=== PATIENT | female | born 1965 | race Caucasian/White ===

== ENCOUNTER 2016-07-01 11:54 | Inpatient (IN) | payer BC ==
[~2016-07-01] VITALS: Ht 160 cm; Wt 104.5 kg
[2016-07-01] MEDS ORDERED: SODIUM CHLORIDE 0.9% 1000ML 1,000 ML IV STA (12:36)
--- NOTE | 2016-07-01 12:44 | EMERGENCY ROOM VISIT NOTE ---
History Report prepared by Chuckibkatrin: Deana Dodge Under the Supervision of: Dr. Radha Cmapbell M.D. First contact with patient: 12:26 Chief Complaint: ILLNESS Stated Complaint: JOINT SWELLING/DISCOLORATION, RASH ON ANKLES History of Present Illness The patient is a 50 year old female who presents to the Emergency Room with complaints of joint pain in her bilateral wrists and left ankle since yesterday. She states that she feels like she has no strength or flexibility in her joints and has increased pain with movement. She states that her fingers are swollen and appear slightly blue in color compared to baseline. This morning , the patient noticed a rash that began on her feet and spread up both of her legs. The rash consists of small red dots. She has not noticed a rash anywhere else on her body. She does note that there is a scratch on her right alvarez that has not been healing. The scratch became increasingly red in the past 2 days. Currently, she has a headache. She typically will take aspirin for her headaches but does not use it regularly and has not taken it today. Upon arrival to the ED her temperature was 39.2. The patient had an appointment scheduled with her PCP today due to an ongoing upper respiratory infection but she called them about her symptoms and was referred to the ER. She does note that she had one episode of vomiting 2 days ago but denies any blood in her vomit. Denies bloody stool, abdominal pain, or other complaints. She is not on any prescription medications. Source of History: patient Onset: 2 days ago Position: wrist (bilateral), ankle (left) Timing: constant Modifying Factors (Worsening): movement Associated Symptoms: + fevers, + headache, + rash, + vomiting, No abdominal pain, No hematochezia Review of Systems See HPI for pertinent positives & negatives. A total of 10 systems reviewed and were otherwise negative. Past Medical & Surgical Medical Problems: (1) Sepsis Surgical Problems: (1) H/O wisdom tooth extraction Family History Cancer Heart disease Hypertension Lung disease Social History Smoking Status: Never Smoker Drug Use: none Housing Status: lives with family Occupation Status: employed Current/Historical Medications No Active Prescriptions or Reported Meds Allergies Coded Allergies: No Known Allergies (Unverified , 07/01/16) Physical Exam Vital Signs Date Time Temp Pulse Resp B/P Pulse Ox O2 Delivery O2 Flow Rate FiO2 07/01/16 14:02 108 18 184/86 96 Room Air 07/01/16 12:17 39.2 110 20 142/87 95 Room Air Physical Exam Vital signs reviewed. General: Well-appearing 50 year old female, in no significant distress. HEENT: No scleral icterus, PERRLA, neck supple. Atraumatic. Cardiovascular: Regular rate and rhythm, no extra sounds. Pulmonary: Clear to auscultation bilaterally, normal work of breathing. Abdomen: Soft, nontender, nondistended, positive bowel sounds. Musculoskeletal: Atraumatic, no peripheral edema. Neurologic: Patient awake alert and oriented x 3, full strength in all 4 extremities. Cranial nerves 2 through 12 grossly intact. Skin: Warm, dry, petechial rash to the medial ankles bilaterally, fading more proximally. She has a wound to the right anterior alvarez with 2 superficial abrasions and surrounding petechiae. Some mild swelling over the left wrist with tenderness to palpation, discomfort with range of motion of the wrists. Medical Decision & Procedures ER Provider Diagnostic Interpretation: X-ray results as stated below per interpretation by me and the radiologist: TWO VIEW CHEST CLINICAL HISTORY: Cough. FINDINGS: PA and lateral chest radiographs are obtained. No prior studies are available for comparison at the time of dictation. The examination is degraded by large body habitus. The heart is top normal for projection. The mediastinal contour is within normal limits. There is mild elevation right hemidiaphragm. The lungs and pleural spaces are clear. There is no pneumothorax. The bony thorax appears intact. IMPRESSION: No active disease in the chest. Electronically signed by: Vikash Madrid M.D. 07/01/2016 1:20 PM Dictated Date/Time: 07/01/2016 1:19 PM Laboratory Results Test 07/01/16 12:52 07/01/16 12:55 07/01/16 13:50 Influenza Type A Antigen Neg for Influ A (NEG) Influenza Type B Antigen Neg for Influ B (NEG) Erythrocyte Sedimentation Rate 36 mm/hr (0-21) Prothrombin Time 11.0 SECONDS (9.0-12.0) Prothromb Time International Ratio 1.0 (0.9-1.1) Activated Partial Thromboplast Time 28.0 SECONDS (21.0-31.0) Partial Thromboplastin Ratio 1.1 C-Reactive Protein 9.04 mg/dl (0-0.29) Urine Color DK YELLOW Urine Appearance CLEAR (CLEAR) Urine pH 5.0 (4.5-7.5) Urine Specific [place] 1.020 (1.000-1.030) Urine Protein 1+ (NEG) Urine Glucose (UA) NEG (NEG) Urine Ketones NEG (NEG) Urine Occult Blood TRACE (NEG) Urine Nitrite NEG (NEG) Urine Bilirubin NEG (NEG) Urine Urobilinogen NEG (NEG) Urine Leukocyte Esterase NEG (NEG) Urine WBC (Auto) 1-5 /hpf (0-5) Urine RBC (Auto) 5-10 /hpf (0-4) Urine Hyaline Casts (Auto) 5-10 /lpf (0-5) Urine Epithelial Cells (Auto) 20-30 /lpf (0-5) Urine Bacteria (Auto) NEG (NEG) Laboratory results per my review. Medications Administered Medications (Trade) Dose Ordered Sig/Ashley Route Start Time Stop Time Status Last Admin Dose Admin Sodium Chloride (Nss 1000ml) 1,000 ml @ 125 mls/hr Q8H STAT IV 07/01/16 12:36 07/01/16 19:39 DC 07/01/16 12:53 125 MLS/HR Acetaminophen 650 mg 650 mg NOW STAT PO 07/01/16 13:55 07/01/16 14:05 DC 07/01/16 14:22 650 MG Sodium Chloride (Nss 1000ml) 1,000 ml @ 75 mls/hr [id number] IV 07/01/16 14:39 07/03/16 03:01 DC 07/03/16 02:16 75 MLS/HR ECG Indication: other (fever) Rate (beats per minute): 115 Rhythm: sinus tachycardia Findings: PAC, no acute ischemic change, other (low voltage QRS, T wave flattening) ED Course 1228: The patient was evaluated in room C5. A complete history and physical examination was performed. 1236: Ordered NSS 1000 ml @ 125 mls/hr IV. 1355: Ordered Acetaminophen 650 mg PO. 1409: I discussed the case with Alesia Ordonez PA-C and Dr. Sandoval - [facility]. The patient will be evaluated for further management. 1419: Upon reevaluation, the patient is resting comfortably. I discussed laboratory and radiographic results with the patient. She verbalized agreement of the treatment plan. Medical Decision Fever: Influenza, other viral illness, pneumonia, urinary tract infection, metabolic abnormality, medication effect, cellulitis, meningitis, intra-abdominal source, blood dyscrasia, Lyme disease. This patient was evaluated and appeared to be in no significant distress. IV access was obtained and laboratory work was drawn. The patient was placed cardiac rehabilitation specialist revealed a sinus rhythm. Laboratory work revealed elevated sedimentation and CRP. Blood cultures are pending. Lyme titer is pending. Due to the fever, arthralgias and elevated inflammatory markers, the patient will be evaluated by the hospitalist service for further management. I did discuss the case with Dr. Sandoval. Patient and family are aware of the plan and agree. Consults Time Called: 1400 Consulting Physician: Alesia Ordonez PA-C and Dr. Sandoval - [facility] Returned Call: 1409 I discussed the case with them. The patient will be evaluated for further management. Impression Primary Impression: Arthralgia Additional Impressions: Febrile illness Petechial rash Scribe Attestation The scribe's documentation has been prepared under my direction and personally reviewed by me in its entirety. I confirm that the note above accurately reflects all work, treatment, procedures, and medical decision making performed by me. Departure Information Dispostion Being Evaluated By Hospitalist Prescriptions No Active Prescriptions or Reported Meds Referrals No Doctor, Assigned (PCP) Patient Instructions My [facility] Problem Qualifiers Primary Impression: Arthralgia Joint pain location: wrist Laterality: bilateral Qualified Codes: M25.531 - Pain in right wrist; M25.532 - Pain in left wrist
[2016-07-01 13:00] LABS: BASO % 0.2 %; BASO ABS # 0.01 K/uL (0-0.2); COMPLETE YES; EOS % 0.4 %; HEMATOCRIT 36.6 % (37-47); LYMPH % 17.3 %; LYMPH ABS # 0.88 K/uL (1.2-3.4); MEAN CELL VOLUME 85.5 fL (80-100); MEAN CORPUSCULAR HGB CONC 32.8 g/dl (32-36); MEAN PLATELET VOLUME 10.5 fL (7.4-10.4); MONO % 13.6 %; NEUT % 68.5 %; PLATELET COUNT 144 K/uL (130-400); RED BLOOD COUNT 4.28 M/uL (4.2-5.4); WHITE BLOOD COUNT 5.08 K/uL (4.8-10.8)
[2016-07-01 13:12] LABS: PARTIAL THROMBOPLASTIN RATIO 1.1
[2016-07-01 13:21] LABS: BUN/CREATININE RATIO 12.7 (10-20); CALCIUM 8.9 mg/dl (8.5-10.1); CREATININE 0.82 mg/dl (0.60-1.20); MAGNESIUM 2.2 mg/dl (1.8-2.4); POTASSIUM 3.6 mmol/L (3.5-5.1)
--- NOTE | 2016-07-01 13:21 | DIAGNOSTIC IMAGING REPORT ---
TWO VIEW CHEST CLINICAL HISTORY: Cough. FINDINGS: PA and lateral chest radiographs are obtained. No prior studies are available for comparison at the time of dictation. The examination is degraded by large body habitus. The heart is top normal for projection. The mediastinal contour is within normal limits. There is mild elevation right hemidiaphragm. The lungs and pleural spaces are clear. There is no pneumothorax. The bony thorax appears intact. IMPRESSION: No active disease in the chest. Electronically signed by: Vikash Madrid M.D. 07/01/2016 1:20 PM Dictated Date/Time: 07/01/2016 1:19 PM
[2016-07-01] MEDS ORDERED: ACETAMINOPHEN 325 MG TAB PO STA (13:55)
[2016-07-01 14:23] LABS: URINE APPEARANCE CLEAR (CLEAR); URINE BILIRUBIN NEG (NEG); URINE COLOR DK YELLOW; URINE EPITHELIAL CELL AUTO 20-30 /lpf (0-5); URINE NITRITE NEG (NEG); UROBILINOGEN NEG (NEG); ZZUR CULT IF INDIC CLEAN CATCH NO
[2016-07-01 14:34] LABS: MANUAL MICROSCOPIC REQUIRED? NO; REVIEW REQ? NO
[2016-07-01] MEDS ORDERED: ALUMINUM/MAGNESIUM/SIMETH (MAALOX MAX) 30 ML UDC PO PRN (14:45)
[2016-07-01] MEDS ORDERED: ONDANSETRON INJ 2 MG/ML 2 ML VIAL IV PRN (14:45)
--- NOTE | 2016-07-01 15:59 | DIAGNOSTIC IMAGING REPORT ---
RIGHT WRIST MIN 3 VIEWS ROUTINE CLINICAL HISTORY: Bilateral wrist pain and swelling. COMPARISON: None FINDINGS: Alignment of the right wrist is anatomic. There is no acute fracture or suspicious lesion. No erosions are identified. There is mild osteophytosis within several articulations. IMPRESSION: 1. No acute fracture or dislocation of the right wrist. 2. 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 Electronically signed by: Reinier Zelaya M.D. 07/01/2016 3:58 PM Dictated Date/Time: 07/01/2016 3:56 PM
--- NOTE | 2016-07-01 15:59 | DIAGNOSTIC IMAGING REPORT ---
LEFT WRIST 5 VIEWS CLINICAL HISTORY: Left wrist pain. FINDINGS: 5 views of the left wrist are obtained. No prior studies are available for comparison at the time of dictation. The skeletal structures are well mineralized. No fracture is seen. The joint spaces of the wrist are well-maintained. The overlying soft tissues are within normal limits. IMPRESSION: Unremarkable radiographic assessment of the left wrist. Electronically signed by: Vikash Madrid M.D. 07/01/2016 3:58 PM Dictated Date/Time: 07/01/2016 3:56 PM
[2016-07-01 16:50] LABS: LYME DISEASE AB IGG NEG (NEG); LYME DISEASE AB IGM NEG (NEG)
[2016-07-01 19:26] VITALS: BP 128/81; PULSE 98; TEMP 36.8; O2SAT 95; Ht 160 cm; Wt 104.5 kg
[2016-07-01] MEDS: SODIUM CHLORIDE 0.9% 1000ML 1,000 ML IV SCH (20:03)
[2016-07-01] MEDS: CEFTRIAXONE SOD INJ 2,000 MG in DEXTROSE 5% 50ML 50 ML IV SCH (20:32)
[2016-07-01] MEDS: DOXYCYCLINE HYCLATE 100 MG CAP PO SCH (20:32)
--- NOTE | 2016-07-01 22:46 | HISTORY & PHYSICAL EXAMINATION ---
DATE OF ADMISSION: 07/01/2016 CHIEF COMPLAINT: Rash in the legs and fever, upper respiratory infection. HISTORY OF PRESENT ILLNESS: This 50-year-old female with no significant past medical history presents with ongoing sinus symptoms since last 1 month and dry cough is not getting better. She is taking [id number] sinus medications but last Thursday she was nauseous , but today nausea has resolved.But today she was feeling chills and fever and some headaches and also she developed a rash in her both ankles and was also having bilateral wrist pain on movement and right ankle pain, so she came to the ER. In the ER, she has a temp spike of 39.2. Has tachycardia. Blood pressure is stable. The patient denies any chest pain, nausea, vomiting at this time. No shortness of breath. No abdominal pain, nausea has resolved and no vomiting, no diarrhea. No swelling in the legs.Resting comfortably. Denies any tick bites. ALLERGIES: No known drug allergies. PAST MEDICAL HISTORY: As mentioned above. PAST SURGICAL HISTORY: Dental surgery and bunion correction of both her feet. MEDICATIONS: Multivitamin. FAMILY HISTORY: Significant for mother has asthma, hypertension and COPD. Father had hypertension. Maternal grandfather had prostate cancer. Maternal grandmother developed colon cancer. Paternal grandfather of [place] at age of 66. REVIEW OF SYMPTOMS: As per HPI. PHYSICAL EXAMINATION: GENERAL: The patient is of moderate build, not in distress. VITAL SIGNS: Temperature 37.2, pulse 108, respiratory rate 18, blood pressure 180/86, oxygen 96% room air. HEAD, EYES, EARS, NOSE, AND THROAT: No pallor, no icterus. Pupils equal, round, and reactive to light. NECK: No JVD, no neck masses, no carotid bruits. CARDIOVASCULAR: S1, S2 heard, regular rate and rhythm, no murmur, no gallop. RESPIRATORY SYSTEM: Clear to auscultation bilaterally. No wheezing, no crackles. ABDOMEN: Soft, bowel sounds present. Nontender. No distention. CENTRAL NERVOUS SYSTEM: Cranial nerves II-XII grossly intact. Nonfocal. EXTREMITIES: Bilateral wrists were slightly swollen and tender to palpation and movement. Skin has macular rash seen on both lower extremities from ankle to the skin. LABORATORY DATA: WBC 5.8, hemoglobin 12, hematocrit 36.6, platelets 144. Sodium 138, potassium 3.6, chloride 102, bicarbonate 25, BUN 10, creatinine 0.8, serum glucose 138, calcium 8.9, magnesium 2.2, total bilirubin 0.4, direct bilirubin 0.2, AST 63, ALT 114, alkaline phosphatase 137. C-reactive protein 9.04. ESR 36. PT 11, INR 1, PTT 28. Urinalysis positive for trace occult blood. Chest x-ray no acute disease in the chest. EKG: Sinus tachycardia with PACs elevated 115. Nonspecific T-wave abnormality, no acute ST changes seen. ASSESSMENT AND PLAN: This is a 50-year-old female who presents with fever, tachycardia and rash in the lower extremities with ongoing sinus infection for about a month. Possible early sepsis. The patient notes fevers spike, tachycardia and rash seen in the lower extremities. He has a little scratch on her right alvarez which is not healing and we will treat her with IV Rocephin to cover for any strep infection. The patient also has some joint pain. ESR is mildly elevated. We will follow the labs done in ER for rheumatological workup. Also follow lyme titers. Follow the cultures. Monitor on tele floor. We will follow the lactic acid level. Wrist joint pain, Mildly tender to palpation. Will follow with chest x-ray. Plan as above. Deep venous thrombosis prophylaxis. SCDs for now. Disposition: Admit to tele floor. LEVEL 1 FULL CODE. Expect to discharge home and follow with her family doctor. MELECIO
[2016-07-01 23:48] VITALS: BP 168/81; PULSE 115; TEMP 36.7; O2SAT 95
[2016-07-02] MEDS: ACETAMINOPHEN 325 MG TAB PO PRN ×3 (03:25→23:39)
[2016-07-02 03:58] VITALS: BP 119/78; PULSE 113; TEMP 36.8; O2SAT 94
[2016-07-02] MEDS: SODIUM CHLORIDE 0.9% 1000ML 1,000 ML IV SCH ×2 (04:32→13:16)
[2016-07-02 06:21] LABS: BASO % 0.2 %; BASO ABS # 0.01 K/uL (0-0.2); COMPLETE YES; EOS % 0.9 %; HEMATOCRIT 33.9 % (37-47); LYMPH % 21.7 %; MEAN CELL VOLUME 85.6 fL (80-100); MEAN CORPUSCULAR HEMOGLOBIN 27.8 pg (25-34); MEAN CORPUSCULAR HGB CONC 32.4 g/dl (32-36); MEAN PLATELET VOLUME 10.9 fL (7.4-10.4); MONO % 11.7 %; NEUT % 65.5 %; PLATELET COUNT 144 K/uL (130-400); RED BLOOD COUNT 3.96 M/uL (4.2-5.4); WHITE BLOOD COUNT 4.61 K/uL (4.8-10.8)
[2016-07-02 07:10] LABS: BUN/CREATININE RATIO 16.6 (10-20); CALCIUM 8.2 mg/dl (8.5-10.1); CREATININE 0.71 mg/dl (0.60-1.20); MAGNESIUM 2.1 mg/dl (1.8-2.4); POTASSIUM 3.5 mmol/L (3.5-5.1)
[2016-07-02 07:45] VITALS: BP 140/69; PULSE 108; TEMP 36.9; O2SAT 97
[2016-07-02] MEDS: DOXYCYCLINE HYCLATE 100 MG CAP PO SCH ×2 (07:51→20:30)
[2016-07-02 11:27] VITALS: BP 138/73; PULSE 109; TEMP 36.9; O2SAT 94
[2016-07-02 16:13] VITALS: BP 143/71; TEMP 37.2; O2SAT 95
--- NOTE | 2016-07-02 17:29 | Progress Note ---
Subjective Date of Service: Jul 02, 2016. Subjective Pt evaluation today including: conversation w/ patient, physical exam, lab review, review of studies, review of inpatient medication list Saw/examined the patient in room 283 She states that she presented due to multiple joint pain - bilateral ankles/ wrists She also developed some rash on the ankles She continues to have a cough, mild fever, weakness, tachycardia Problem List Medical Problems: (1) Arthralgia Status: Acute (2) Febrile illness Status: Acute (3) Petechial rash Status: Acute Review of Systems Constitutional: + fatigue, + fever, + weakness, No chills Respiratory: + cough, No dyspnea at rest, No dyspnea on exertion, No hemoptysis , No shortness of breath, No sputum, No wheezing Cardiac: No chest pain, No edema, No palpitations Abdomen: No constipation, No diarrhea, No nausea, No pain, No vomiting Musculoskeletal: + joint pain (multiple joints, bilateral wrists/ankles), No calf pain, No muscle pain, No swelling Female : No dysuria, No urinary frequency Heme: No abnormal bleeding/bruising Skin: + new/changing skin lesions, + rash, No itch Medications Current Inpatient Medications Medications (Trade) Dose Ordered Sig/Ashley Route Start Time Stop Time Status Last Admin Dose Admin Sodium Chloride (Nss 1000ml) 1,000 ml @ 125 mls/hr Q8H IV 07/01/16 14:39 07/31/16 14:38 07/02/16 13:16 125 MLS/HR Acetaminophen (Tylenol Tab) 650 mg Q4H PRN PO 07/01/16 14:45 07/31/16 14:44 07/02/16 13:11 650 MG Al Hydrox/Mg Hydrox/Simethicone (Maalox Max Susp) 15 ml Q4H PRN PO 07/01/16 14:45 07/31/16 14:44 Ondansetron HCl 4 mg 4 mg Q6H PRN IV 07/01/16 14:45 07/31/16 14:44 Ceftriaxone Sodium/Dextrose (Rocephin Inj/D5 50ml) 70 ml @ 100 mls/hr Q24H IV 07/01/16 20:00 07/11/16 19:59 07/01/16 20:32 100 MLS/HR Doxycycline Hyclate (Vibramycin Cap) 100 mg BID PO 07/01/16 21:00 07/11/16 20:59 07/02/16 07:51 100 MG Objective Vital Signs Date Time Temp Pulse Resp B/P Pulse Ox O2 Delivery O2 Flow Rate FiO2 07/02/16 16:15 Room Air 07/02/16 16:13 37.2 143/71 95 Room Air 07/02/16 12:00 Room Air 07/02/16 11:27 36.9 109 16 138/73 94 Room Air 07/02/16 08:30 Room Air 07/02/16 07:45 36.9 108 20 140/69 97 Room Air 07/02/16 04:00 Room Air 07/02/16 03:58 36.8 113 18 119/78 94 Room Air 07/02/16 00:00 Room Air 07/01/16 23:48 36.7 115 20 168/81 95 Room Air 07/01/16 20:00 Room Air 07/01/16 19:26 36.8 98 18 128/81 95 Room Air 07/01/16 19:05 101 18 143/88 96 07/01/16 18:44 101 18 143/88 96 Physical Exam General Appearance: no apparent distress Eyes: normal inspection ENT: hearing grossly normal Respiratory/Chest: chest non-tender, lungs clear, normal breath sounds, no respiratory distress, no accessory muscle use Cardiovascular: regular rate, rhythm, no edema, no gallop, no JVD, no murmur Abdomen: normal bowel sounds, non tender, soft, no organomegaly, no pulsatile mass Extremities: normal range of motion, no pedal edema, no calf tenderness, + pertinent finding (mild swelling of bilateral wrists) 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, no motor/sensory deficits, alert, normal mood/affect, oriented x 3 Skin: + pertinent finding (petechial rash on the bilateral ankles) Lymphatic: no adenopathy Laboratory Results Last 24 Hours Test 07/02/16 05:55 White Blood Count 4.61 K/uL Red Blood Count 3.96 M/uL Hemoglobin 11.0 g/dL Hematocrit 33.9 % Mean Corpuscular Volume 85.6 fL Mean Corpuscular Hemoglobin 27.8 pg Mean Corpuscular Hemoglobin Concent 32.4 g/dl Platelet Count 144 K/uL Mean Platelet Volume 10.9 fL Neutrophils (%) (Auto) 65.5 % Lymphocytes (%) (Auto) 21.7 % Monocytes (%) (Auto) 11.7 % Eosinophils (%) (Auto) 0.9 % Basophils (%) (Auto) 0.2 % Neutrophils # (Auto) 3.02 K/uL Lymphocytes # (Auto) 1.00 K/uL Monocytes # (Auto) 0.54 K/uL Eosinophils # (Auto) 0.04 K/uL Basophils # (Auto) 0.01 K/uL RDW Standard Deviation 42.6 fL RDW Coefficient of Variation 13.5 % Immature Granulocyte % (Auto) 0.0 % Immature Granulocyte # (Auto) 0.00 K/uL Sodium Level 142 mmol/L Potassium Level 3.5 mmol/L Chloride Level 106 mmol/L Carbon Dioxide Level 26 mmol/L Anion Gap 10.0 mmol/L Blood Urea Nitrogen 12 mg/dl Creatinine 0.71 mg/dl Est Creatinine Clear Calc Drug Dose 109.3 ml/min Estimated GFR () 115.1 Estimated GFR (Non- 99.3 BUN/Creatinine Ratio 16.6 Random Glucose 102 mg/dl Calcium Level 8.2 mg/dl Magnesium Level 2.1 mg/dl Assessment and Plan This is a 50 year old female who presented to the ER with sinus problems, rash, and multiple joint pain Multiple Joint Pain some swelling noted on bilateral wrists wrist radiographs negative +fever, tachycardia, rash noted on bilateral ankles Lyme titers negative, rheumatoid factor negative ESR mild elevation, CRP mild elevation will consult rheumatology for further input Right Alvarez Laceration patient states she developed a cut after scratching her alvarez was well healing until one day prior to arrival when it changed to a darker color for now, patient is on Rocephin, though does not seem infected Upper Respiratory Infection +sinus pressure, +dry cough +fever, +tachycardia this seems more of a viral infection patient is on Rocephin for above will decrease IVFs as she is tolerating PO intake DVT ppx SCDs FULL CODE
[2016-07-02] MEDS: CEFTRIAXONE SOD INJ 2,000 MG in DEXTROSE 5% 50ML 50 ML IV SCH (19:44)
[2016-07-02 19:49] VITALS: BP 139/80; PULSE 117; TEMP 37.2; O2SAT 98
[2016-07-03] VITALS (12 sets, daily range): BP systolic 109–151; BP diastolic 58–87; PULSE 87–112; TEMP 36.8–38.2; O2SAT 94–96
[2016-07-03] MEDS ORDERED: POTASSIUM CHLORIDE 10 MEQ TABCR PO STA (01:40)
--- NOTE | 2016-07-03 01:49 | Progress Note ---
Internal Med Progress Note Date of Service: Jul 03, 2016. Provider Documentation: Atenolol initiated to suppress PVCs and probable chronic HTN (borderline cardiac size on CXR). Will relay to AM provider. Vital Signs: Date Time Temp Pulse Resp B/P Pulse Ox O2 Delivery O2 Flow Rate FiO2 07/03/16 07:40 37.5 87 16 109/58 96 Room Air 07/03/16 05:04 37.1 95 18 137/81 95 Room Air 07/03/16 04:00 Room Air 07/03/16 02:15 37.4 94 130/77 07/03/16 00:47 37.6 07/03/16 00:14 38.2 112 20 151/80 94 Room Air 07/03/16 00:00 Room Air 07/02/16 20:00 Room Air 07/02/16 19:49 37.2 117 18 139/80 98 Room Air 07/02/16 16:15 Room Air 07/02/16 16:13 37.2 143/71 95 Room Air 07/02/16 12:00 Room Air 07/02/16 11:27 36.9 109 16 138/73 94 Room Air 07/02/16 08:30 Room Air Lab Results: Results Past 24 Hours Test 07/03/16 02:00 Range/Units White Blood Count 5.98 4.8-10.8 K/uL Red Blood Count 3.91 4.2-5.4 M/uL Hemoglobin 10.9 12.0-16.0 g/dL Hematocrit 32.7 37-47 % Mean Corpuscular Volume 83.6 80-100 fL Mean Corpuscular Hemoglobin 27.9 25-34 pg Mean Corpuscular Hemoglobin Concent 33.3 32-36 g/dl Platelet Count 174 130-400 K/uL Mean Platelet Volume 10.7 7.4-10.4 fL Neutrophils (%) (Auto) 67.0 % Lymphocytes (%) (Auto) 20.6 % Monocytes (%) (Auto) 10.7 % Eosinophils (%) (Auto) 1.3 % Basophils (%) (Auto) 0.2 % Neutrophils # (Auto) 4.01 1.4-6.5 K/uL Lymphocytes # (Auto) 1.23 1.2-3.4 K/uL Monocytes # (Auto) 0.64 0.11-0.59 K/uL Eosinophils # (Auto) 0.08 0-0.5 K/uL Basophils # (Auto) 0.01 0-0.2 K/uL RDW Standard Deviation 41.8 36.4-46.3 fL RDW Coefficient of Variation 13.6 11.5-14.5 % Immature Granulocyte % (Auto) 0.2 % Immature Granulocyte # (Auto) 0.01 0.00-0.02 K/uL Sodium Level 143 136-145 mmol/L Potassium Level 3.7 3.5-5.1 mmol/L Chloride Level 108 98-107 mmol/L Carbon Dioxide Level 24 21-32 mmol/L Anion Gap 11.0 3-11 mmol/L Blood Urea Nitrogen 10 7-18 mg/dl Creatinine 0.79 0.60-1.20 mg/dl Est Creatinine Clear Calc Drug Dose 98.2 ml/min Estimated GFR () 101.2 Estimated GFR (Non- 87.3 BUN/Creatinine Ratio 12.1 10-20 Random Glucose 106 70-99 mg/dl Lactic Acid Level 0.8 0.4-2.0 mmol/L Calcium Level 7.9 8.5-10.1 mg/dl Magnesium Level 2.0 1.8-2.4 mg/dl Total Bilirubin 0.2 0.2-1 mg/dl Aspartate Amino Transf (AST/SGOT) 144 15-37 U/L Alanine Aminotransferase (ALT/SGPT) 182 12-78 U/L Alkaline Phosphatase 197 45-117 U/L Total Protein 6.6 6.4-8.2 gm/dl Albumin 2.8 3.4-5.0 gm/dl Globulin 3.8 2.5-4.0 gm/dl Albumin/Globulin Ratio 0.7 0.9-2 Lipase 415 73-393 U/L Thyroid Stimulating Hormone (TSH) 4.900 0.300-4.500 uIu/ml Free Thyroxine 1.25 0.80-1.60 ng/dl
[2016-07-03] MEDS: SODIUM CHLORIDE 0.9% 1000ML 1,000 ML IV SCH (02:16)
[2016-07-03 02:30] LABS: BASO % 0.2 %; BASO ABS # 0.01 K/uL (0-0.2); COMPLETE YES; EOS % 1.3 %; HEMATOCRIT 32.7 % (37-47); IG% 0.2 %; LYMPH % 20.6 %; LYMPH ABS # 1.23 K/uL (1.2-3.4); MEAN CELL VOLUME 83.6 fL (80-100); MEAN CORPUSCULAR HEMOGLOBIN 27.9 pg (25-34); MEAN CORPUSCULAR HGB CONC 33.3 g/dl (32-36); MEAN PLATELET VOLUME 10.7 fL (7.4-10.4); MONO % 10.7 %; PLATELET COUNT 174 K/uL (130-400); RED BLOOD COUNT 3.91 M/uL (4.2-5.4); WHITE BLOOD COUNT 5.98 K/uL (4.8-10.8)
[2016-07-03 02:43] LABS: BUN/CREATININE RATIO 12.1 (10-20); CALCIUM 7.9 mg/dl (8.5-10.1); CREATININE 0.79 mg/dl (0.60-1.20); POTASSIUM 3.7 mmol/L (3.5-5.1)
[2016-07-03 02:54] LABS: ALB/GLOB RATIO 0.7 (0.9-2); THYROID STIMULATING HORMONE 4.9 uIu/ml (0.300-4.500)
[2016-07-03] MEDS ORDERED: SODIUM CHLOR 0.45% + 20MEQ KCL 1,000 ML IV SCH (03:00)
[2016-07-03] MEDS ORDERED: LACTATED RINGER'S 1000ML 1,000 ML IV SCH (03:00)
[2016-07-03] MEDS ORDERED: LACTATED RINGER'S 1000ML 1,000 ML IV ONE (06:15)
--- NOTE | 2016-07-03 07:49 | DIAGNOSTIC IMAGING REPORT ---
ABDOMINAL ULTRASOUND, RIGHT UPPER QUADRANT HISTORY: Generalized abdominal pain. Abnormal LFTs.. COMPARISON: None. FINDINGS: Pancreas: The pancreatic tail is obscured by overlying bowel gas. The remaining portions of the pancreas are within normal limits. Liver: The liver is echogenic consistent with fatty change. The liver is enlarged measuring 27 reason length. Hypoechoic area near the middle hepatic vein favors focal fatty sparing. This measures 1.6 cm. Gallbladder: No gallbladder wall thickening. No gallstones. There are few small polyps with the largest measuring 4 mm. Incidental adenomyomatosis of the gallbladder fundus. CBD: 4.6 mm. Right kidney: Mild fullness of the right renal collecting system without gómez hydronephrosis. IMPRESSION: 1. Hepatomegaly demonstrating fatty change. A 2 cm hypoechoic area within the liver favors focal fatty sparing. A hypoechoic lesion could also have a similar appearance. Follow-up nonemergent liver MRI can be used for further evaluation. 2. Subcentimeter gallbladder polyps. No gallstones. No gallbladder wall thickening. 3. Mild fullness within the right renal system without gómez hydronephrosis. Electronically signed by: Maurisio Mitchell M.D. 07/03/2016 7:47 AM Dictated Date/Time: 07/03/2016 7:43 AM
[2016-07-03] MEDS: DOXYCYCLINE HYCLATE 100 MG CAP PO SCH ×2 (09:01→20:52)
--- NOTE | 2016-07-03 11:03 | Medical Consult ---
Consultation Date of Consultation: Jul 03, 2016. Attending Physician: Dr. Tomi Goldberg (infectious diseases) History of Present Illness Pt is a 50F that was sent to the ER Thursday morning by her PCP after she called in and said she noticed a rash on her ankles bilaterally. Patient was scheduled to see her PCP for sinus congestion (runny nose, feeling of fullness, cough) that had been going on for one month. Patient also reports occasional fevers during this period. On Thursday the patient woke up and noticed a rash on her feet bilaterally. Patient had scratched her medial ankle two weeks ago because she said her legs were dry - noticed some purple didcoloration around the scratch mariah last Thursday (4 days prior to admission). Pt has two dogs and takes them for walks every day. Pt denies any tick bites, any recent travel to outside the [facility], any exposure to horses. 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 Patient has a lifetime of chronic sinus symptoms. Patient does not have any auto immune disorders. FMHx: Father with auto immune hepatitis diagnosed at age 45. PMHx: s/p blood transfusion at age 1 (1966) for anemia, chronic anemia. Colonoscopy last year was normal. PSHx: Bilateral bunion correction, tonsillectomy, surgery on right foot for correction of ?crossed toes. Allergies: NKDA Meds: Pt takes occasional Advil or Alleve for headaches and environmental allergies. SHx: Pt denies any history of IV drug use, works at [employer] and beyond. Past Medical/Surgical History Medical Problems: (1) Arthralgia Status: Acute (2) Febrile illness Status: Acute (3) Petechial rash Status: Acute Family History Cancer Heart disease Hypertension Lung disease Father diagnosed with auto immune hepatitis at age 45. Social History Smoking Status: Never Smoker Drug Use: none Housing Status: lives with family Occupation Status: employed Allergies Coded Allergies: No Known Allergies (Unverified , 07/01/16) Current Inpatient Medications Current Inpatient Medications Medications (Trade) Dose Ordered Sig/Ashley Route Start Time Stop Time Status Last Admin Dose Admin Al Hydrox/Mg Hydrox/Simethicone (Maalox Max Susp) 15 ml Q4H PRN PO 07/01/16 14:45 07/31/16 14:44 Ondansetron HCl 4 mg 4 mg Q6H PRN IV 07/01/16 14:45 07/31/16 14:44 Ceftriaxone Sodium/Dextrose (Rocephin Inj/D5 50ml) 70 ml @ 100 mls/hr Q24H IV 07/01/16 20:00 07/11/16 19:59 07/02/16 19:44 100 MLS/HR Doxycycline Hyclate (Vibramycin Cap) 100 mg BID PO 07/01/16 21:00 07/11/16 20:59 07/03/16 09:01 100 MG Atenolol (Tenormin Tab) 25 mg QAM PO 07/04/16 09:00 08/03/16 08:59 Acetaminophen 325 mg 325 mg Q6H PRN PO 07/03/16 08:45 08/02/16 08:44 Lactated Ringer's (Lr 1000ml) 1,000 ml @ 100 mls/hr Q10H ONCE IV 07/03/16 06:15 07/03/16 16:14 07/03/16 06:15 100 MLS/HR Review of Systems Constitutional: + fever, No chills, No weight loss Physical Exam Date Time Temp Pulse Resp B/P Pulse Ox O2 Delivery O2 Flow Rate FiO2 07/03/16 07:40 37.5 87 16 109/58 96 Room Air 07/03/16 05:04 37.1 95 18 137/81 95 Room Air 07/03/16 04:00 Room Air 07/03/16 02:15 37.4 94 130/77 07/03/16 00:47 37.6 07/03/16 00:14 38.2 112 20 151/80 94 Room Air 07/03/16 00:00 Room Air 07/02/16 20:00 Room Air 07/02/16 19:49 37.2 117 18 139/80 98 Room Air 07/02/16 16:15 Room Air 07/02/16 16:13 37.2 143/71 95 Room Air 07/02/16 12:00 Room Air 07/02/16 11:27 36.9 109 16 138/73 94 Room Air General Appearance: WD/WN, no apparent distress, + obese Respiratory/Chest: chest non-tender, lungs clear, normal breath sounds Cardiovascular: regular rate, rhythm, no edema, no gallop, no JVD, no murmur Abdomen/GI: normal bowel sounds, non tender, soft, no pulsatile mass, + pertinent finding (Pt is morbidly obese, difficult to assess organomegaly on exam. ) Extremities/Musculoskelatal: + pertinent finding (minor swelling in the DIPS and PIPS of the 1st 4 digits of the right hand and similar swelling in the left DIPs and PIPs. ) Neurologic/Psych: normal mood/affect, normal reflexes, oriented x 3 Skin: + pertinent finding (Maculopapular rash on the medial and lateral malleolia, approx 4cm x 3cm area on both feet bilaterally. 3cm scratch over the right lateral leg is also surrounded by macular papular area. maculopapular area is warm on palpation. No other skin lesions on abdomen, upper extremities , back or face. ) Laboratory Results Last 24 Hours Test 07/03/16 02:00 White Blood Count 5.98 K/uL Red Blood Count 3.91 M/uL Hemoglobin 10.9 g/dL Hematocrit 32.7 % Mean Corpuscular Volume 83.6 fL Mean Corpuscular Hemoglobin 27.9 pg Mean Corpuscular Hemoglobin Concent 33.3 g/dl Platelet Count 174 K/uL Mean Platelet Volume 10.7 fL Neutrophils (%) (Auto) 67.0 % Lymphocytes (%) (Auto) 20.6 % Monocytes (%) (Auto) 10.7 % Eosinophils (%) (Auto) 1.3 % Basophils (%) (Auto) 0.2 % Neutrophils # (Auto) 4.01 K/uL Lymphocytes # (Auto) 1.23 K/uL Monocytes # (Auto) 0.64 K/uL Eosinophils # (Auto) 0.08 K/uL Basophils # (Auto) 0.01 K/uL RDW Standard Deviation 41.8 fL RDW Coefficient of Variation 13.6 % Immature Granulocyte % (Auto) 0.2 % Immature Granulocyte # (Auto) 0.01 K/uL Sodium Level 143 mmol/L Potassium Level 3.7 mmol/L Chloride Level 108 mmol/L Carbon Dioxide Level 24 mmol/L Anion Gap 11.0 mmol/L Blood Urea Nitrogen 10 mg/dl Creatinine 0.79 mg/dl Est Creatinine Clear Calc Drug Dose 98.2 ml/min Estimated GFR () 101.2 Estimated GFR (Non- 87.3 BUN/Creatinine Ratio 12.1 Random Glucose 106 mg/dl Lactic Acid Level 0.8 mmol/L Calcium Level 7.9 mg/dl Magnesium Level 2.0 mg/dl Total Bilirubin 0.2 mg/dl Aspartate Amino Transf (AST/SGOT) 144 U/L Alanine Aminotransferase (ALT/SGPT) 182 U/L Alkaline Phosphatase 197 U/L Total Protein 6.6 gm/dl Albumin 2.8 gm/dl Globulin 3.8 gm/dl Albumin/Globulin Ratio 0.7 Lipase 415 U/L Thyroid Stimulating Hormone (TSH) 4.900 uIu/ml Free Thyroxine 1.25 ng/dl Assessment & Plan 50F with no significant PMHx is presenting with bilateral lower extremity rash x 1 day, joint pains and possible sinusitis x 1 month. Family history is significant for father who was diagnosed at age 45 with auto immune hepatitis. Patient denies IV drug use, has never been testing for Hep B or Hep C. Liver US significant for hepatomegaly likely 2/2 fatty infiltrate. Chest X-ray was negative. X-ray of the hands were negative. In light of constellation of symptoms, likely autoimmune etiology (exclude cryoglobulinemia 2/2 auto immune hepatitis), but will want to exclude Hep B and Hep C and viral causes ( including parvo). Bilateral Lower Extremity Rash x 2 days - Maculopapular rash on the medial and lateral malleoli, approx 4cm x 3cm area on both feet bilaterally. 3cm scratch over the right lateral leg is also surrounded by macular papular area. No signs of infection. - Will want to exclude Cryoglobulinemia, especially Type 1 in light of negative RF result. - DONNIE, ANCA, HLA B27 - pending - f/u Cryocrit level, complement level, IgM, IgA and IgG levels. Elevated AST, ALT and ALP, r/o Viral Hepatitis - Father has auto-immune hepatitis, diagnosed at age 45, pt received blood transfusion at age 1 (1966), has never been tested for Hep B and Hep C. - AST 144, ALT 182, ALP 197 (up from previous day) - Gallbladder US noted Hepatomegaly demonstrating fatty change and a 2 cm hypoechoic area favoring fatty change. - DONNIE Pending - f/u Hep B and Hep C results. - f/u antismooth muscle antibodies, [id number] microsome-1 antibodies and anti-liver cytosol antibody-1, direct bilirubin. Upper extremity Arthralgia - RF, [place] and Lyme negative. Likely sequelae of underlying etiology (Hepatitis vs URI virus). - f/u Parvo, Coxsackie, Erlichia, and EBV titres. Sinusitis x 1 month - Slight cough on exam, lungs and Chest X-ray are clear. - Pt reports a chronic history of sinusitis (runny nose) of one month duration that was getting worse. - Consider above etiologies. Occasional Fevers x 1 month - Pt denies any recent travel to outside the [facility] in the past year. - May be related to chronic sinusitis or underlying autoimmune/inflammatory process. - Wait for above results then re-evaluate. PROVIDER ADDENDUM: PATIENT EXAMINED AND REVIEWED WITH [employer]. Agree with above assessment, suspect parvovirus or autoimmune/vasculitic process most likely candidates. Await further studies. Resident Involvement: Resident Care Provided Care Provided: Adult [facility] Medicine
[2016-07-03 12:22] LABS: IMMUNOGLOBULN M 46.8 mg/dL (40-230)
[2016-07-03] MEDS: ACETAMINOPHEN 325 MG TAB PO PRN ×2 (16:36→23:48)
--- NOTE | 2016-07-03 18:27 | Progress Note ---
Subjective Date of Service: Jul 03, 2016. Subjective Pt evaluation today including: conversation w/ patient, physical exam, lab review, review of studies, conversation w/ wireless consultant, review of inpatient medication list Saw/examined the patient in room 283 pain in the joints improving rash persists +diarrhea overnight +fever overnight +tachycardia/PVCs persist Problem List Medical Problems: (1) Arthralgia Status: Acute (2) Febrile illness Status: Acute (3) Petechial rash Status: Acute Review of Systems Constitutional: + fever, No chills Respiratory: No shortness of breath Cardiac: No chest pain Abdomen: + diarrhea, No nausea, No pain, No vomiting Musculoskeletal: + joint pain Heme: No abnormal bleeding/bruising Skin: + rash Medications Current Inpatient Medications Medications (Trade) Dose Ordered Sig/Ashley Route Start Time Stop Time Status Last Admin Dose Admin Al Hydrox/Mg Hydrox/Simethicone (Maalox Max Susp) 15 ml Q4H PRN PO 07/01/16 14:45 07/31/16 14:44 Ondansetron HCl 4 mg 4 mg Q6H PRN IV 07/01/16 14:45 07/31/16 14:44 Ceftriaxone Sodium/Dextrose (Rocephin Inj/D5 50ml) 70 ml @ 100 mls/hr Q24H IV 07/01/16 20:00 07/11/16 19:59 07/02/16 19:44 100 MLS/HR Doxycycline Hyclate (Vibramycin Cap) 100 mg BID PO 07/01/16 21:00 07/11/16 20:59 07/03/16 09:01 100 MG Atenolol (Tenormin Tab) 25 mg QAM PO 07/04/16 09:00 08/03/16 08:59 Acetaminophen (Tylenol Tab) 325 mg Q6H PRN PO 07/03/16 08:45 08/02/16 08:44 07/03/16 16:36 325 MG Objective Vital Signs Date Time Temp Pulse Resp B/P Pulse Ox O2 Delivery O2 Flow Rate FiO2 07/03/16 16:46 36.8 93 16 137/84 95 Room Air 07/03/16 12:18 36.9 97 18 143/87 96 Room Air 07/03/16 12:00 96 Room Air 07/03/16 08:00 96 Room Air 07/03/16 07:40 37.5 87 16 109/58 96 Room Air 07/03/16 05:04 37.1 95 18 137/81 95 Room Air 07/03/16 04:00 Room Air 07/03/16 02:15 37.4 94 130/77 07/03/16 00:47 37.6 07/03/16 00:14 38.2 112 20 151/80 94 Room Air 07/03/16 00:00 Room Air 07/02/16 20:00 Room Air 07/02/16 19:49 37.2 117 18 139/80 98 Room Air Physical Exam General Appearance: no apparent distress Respiratory/Chest: lungs clear, normal breath sounds, no respiratory distress, no accessory muscle use Cardiovascular: regular rate, rhythm, no edema, no murmur Abdomen: normal bowel sounds, non tender, soft Extremities: normal inspection, no pedal edema Laboratory Results Last 24 Hours Test 07/03/16 02:00 07/03/16 11:35 07/03/16 12:07 White Blood Count 5.98 K/uL Red Blood Count 3.91 M/uL Hemoglobin 10.9 g/dL Hematocrit 32.7 % Mean Corpuscular Volume 83.6 fL Mean Corpuscular Hemoglobin 27.9 pg Mean Corpuscular Hemoglobin Concent 33.3 g/dl Platelet Count 174 K/uL Mean Platelet Volume 10.7 fL Neutrophils (%) (Auto) 67.0 % Lymphocytes (%) (Auto) 20.6 % Monocytes (%) (Auto) 10.7 % Eosinophils (%) (Auto) 1.3 % Basophils (%) (Auto) 0.2 % Neutrophils # (Auto) 4.01 K/uL Lymphocytes # (Auto) 1.23 K/uL Monocytes # (Auto) 0.64 K/uL Eosinophils # (Auto) 0.08 K/uL Basophils # (Auto) 0.01 K/uL RDW Standard Deviation 41.8 fL RDW Coefficient of Variation 13.6 % Immature Granulocyte % (Auto) 0.2 % Immature Granulocyte # (Auto) 0.01 K/uL Sodium Level 143 mmol/L Potassium Level 3.7 mmol/L Chloride Level 108 mmol/L Carbon Dioxide Level 24 mmol/L Anion Gap 11.0 mmol/L Blood Urea Nitrogen 10 mg/dl Creatinine 0.79 mg/dl Est Creatinine Clear Calc Drug Dose 98.2 ml/min Estimated GFR () 101.2 Estimated GFR (Non- 87.3 BUN/Creatinine Ratio 12.1 Random Glucose 106 mg/dl Lactic Acid Level 0.8 mmol/L Calcium Level 7.9 mg/dl Magnesium Level 2.0 mg/dl Total Bilirubin 0.2 mg/dl Aspartate Amino Transf (AST/SGOT) 144 U/L Alanine Aminotransferase (ALT/SGPT) 182 U/L Alkaline Phosphatase 197 U/L Total Protein 6.6 gm/dl Albumin 2.8 gm/dl Globulin 3.8 gm/dl Albumin/Globulin Ratio 0.7 Lipase 415 U/L Thyroid Stimulating Hormone (TSH) 4.900 uIu/ml Free Thyroxine 1.25 ng/dl Direct Bilirubin 0.1 mg/dl Immunoglobulin G 659.0 mg/dL Immunoglobulin A 251.0 mg/dL Immunoglobulin M 46.8 mg/dL Hepatitis B Surface Antigen NEG Hepatitis C Antibody NEG Assessment and Plan This is a 50 year old female who presented to the ER with sinus problems, rash, and multiple joint pain Multiple Joint Pain, likely Reactive Arthritis 07/03 joint pain and swelling slightly improved, but persists Lyme negative, other tests are pending appreciate rheumatology input this is likely reactive arthritis - treatment NSAIDs, but due to LFTs being off , we can wait for further w/up to be completed 07/02 some swelling noted on bilateral wrists wrist radiographs negative +fever, tachycardia, rash noted on bilateral ankles Lyme titers negative, rheumatoid factor negative ESR mild elevation, CRP mild elevation will consult rheumatology for further input Diarrhea patient has mildly elevated LFTs +diarrhea, +fever C. diff is negative RUQ U/S - fatty liver Right Alvarez Laceration patient states she developed a cut after scratching her alvarez was well healing until one day prior to arrival when it changed to a darker color for now, patient is on Rocephin, though does not seem infected Upper Respiratory Infection +sinus pressure, +dry cough +fever, +tachycardia this seems more of a viral infection patient is on Rocephin for above will decrease IVFs as she is tolerating PO intake DVT ppx SCDs FULL CODE
--- NOTE | 2016-07-03 19:15 | Rheumatology Consultation ---
Rheumatology Consultation Date of Consultation: Jul 03, 2016. Reason for Consultation: Joint pain and rash History of Present Illness Ms. Santillan is a pleasant 50 year old woman with history of recurrent sinusitis who reports that she has been experiencing sinus congestion for the past month in addition to intermittent fevers for the past few weeks. Several family members and coworkers have been ill with upper respiratory symptoms. She had scheduled an appointment to see her PCP this week but noted a new rash around her ankles and redness of a self inflicted scratch on her right lower leg in addition to pain in her ankles and wrist so she presented to the emergency room for further evaluation. She was noted to be febrile and had a petechial rash on her ankles. Sed rate and CRP are elevated. Coags are normal as are platelets. CMP shows elevated liver enzymes. Thus far, she her testing for mono and influenza are negative. She denies prior history of joint inflammation. There is no personal or family history of inflammatory arthritis. She denies any hair loss, oral/nasal ulcers or difficulty breathing. She had several episodes of nausea and vomiting on Thursday and non-bloody diarrhea yesterday. She denies any recent travels. No new medications. She was using Tylenol 2 per day to treat her symptoms at home. She denies routine alcohol use. Several immune serologies have been sent and most are pending. She is currently on antibiotics. Past Medical/Surgical History PMH: Recurrent sinusitis Past surgical history Bilateral bunionectomy Reconstruction of 2-4 toes on the right foot Social History Smoking Status: Never Smoker History of Alcohol Use: No Drug Use: none Occupation Status: employed (at [employer]) Review of Systems Constitutional: + chills, + fatigue Eyes: No discharge, No eye pain, No redness, No worsening of vision ENT: + problem reported (post nasal drip), No hearing loss, No sore throat Respiratory: No shortness of breath Cardiac: No chest pain, No edema, No orthopnea Abdomen: + diarrhea, + nausea, + vomiting, No GI bleeding, No pain Musculoskeletal: + joint pain (wrists, hands, ankles) Neurologic: No balance problems, No weakness Endo: + fatigue Skin: + rash Allergies Coded Allergies: No Known Allergies (Unverified , 07/01/16) Medications Current Inpatient Medications Medications (Trade) Dose Ordered Sig/Ashley Route Start Time Stop Time Status Last Admin Dose Admin Al Hydrox/Mg Hydrox/Simethicone (Maalox Max Susp) 15 ml Q4H PRN PO 07/01/16 14:45 07/31/16 14:44 Ondansetron HCl 4 mg 4 mg Q6H PRN IV 07/01/16 14:45 07/31/16 14:44 Ceftriaxone Sodium/Dextrose (Rocephin Inj/D5 50ml) 70 ml @ 100 mls/hr Q24H IV 07/01/16 20:00 07/11/16 19:59 07/02/16 19:44 100 MLS/HR Doxycycline Hyclate (Vibramycin Cap) 100 mg BID PO 07/01/16 21:00 07/11/16 20:59 07/03/16 09:01 100 MG Atenolol (Tenormin Tab) 25 mg QAM PO 07/04/16 09:00 08/03/16 08:59 Acetaminophen (Tylenol Tab) 325 mg Q6H PRN PO 07/03/16 08:45 08/02/16 08:44 07/03/16 16:36 325 MG Physical Exam Date Time Temp Pulse Resp B/P Pulse Ox O2 Delivery O2 Flow Rate FiO2 07/03/16 16:46 36.8 93 16 137/84 95 Room Air 07/03/16 12:18 36.9 97 18 143/87 96 Room Air 07/03/16 12:00 96 Room Air 07/03/16 08:00 96 Room Air 07/03/16 07:40 37.5 87 16 109/58 96 Room Air 07/03/16 05:04 37.1 95 18 137/81 95 Room Air 07/03/16 04:00 Room Air 07/03/16 02:15 37.4 94 130/77 07/03/16 00:47 37.6 07/03/16 00:14 38.2 112 20 151/80 94 Room Air 07/03/16 00:00 Room Air 07/02/16 20:00 Room Air 07/02/16 19:49 37.2 117 18 139/80 98 Room Air Eyes: bilateral eyes EOMI, bilateral eyes normal inspection ENT: normal ENT inspection, hearing grossly normal Neck: supple, no adenopathy, thyroid normal Respiratory: chest non-tender, lungs clear, normal breath sounds, no respiratory distress, no accessory muscle use Cardiovascular: regular rate, rhythm, no edema Abdomen: normal bowel sounds, non tender Musculoskeletal: Tender joint: lateral aspect of left wrist, left knee Swollen joints: left knee Neurologic/Psychiatric: no motor/sensory deficits, alert, normal mood/affect, oriented x 3 Skin: normal color, + rash (petechial nonblanching rash along medial aspect of both ankles; scattered erythematous macules further up on alvarez; erythema of scratch on right lower leg) Laboratory Results Last 24 Hours Test 07/03/16 02:00 07/03/16 11:35 07/03/16 12:07 White Blood Count 5.98 K/uL Red Blood Count 3.91 M/uL Hemoglobin 10.9 g/dL Hematocrit 32.7 % Mean Corpuscular Volume 83.6 fL Mean Corpuscular Hemoglobin 27.9 pg Mean Corpuscular Hemoglobin Concent 33.3 g/dl Platelet Count 174 K/uL Mean Platelet Volume 10.7 fL Neutrophils (%) (Auto) 67.0 % Lymphocytes (%) (Auto) 20.6 % Monocytes (%) (Auto) 10.7 % Eosinophils (%) (Auto) 1.3 % Basophils (%) (Auto) 0.2 % Neutrophils # (Auto) 4.01 K/uL Lymphocytes # (Auto) 1.23 K/uL Monocytes # (Auto) 0.64 K/uL Eosinophils # (Auto) 0.08 K/uL Basophils # (Auto) 0.01 K/uL RDW Standard Deviation 41.8 fL RDW Coefficient of Variation 13.6 % Immature Granulocyte % (Auto) 0.2 % Immature Granulocyte # (Auto) 0.01 K/uL Sodium Level 143 mmol/L Potassium Level 3.7 mmol/L Chloride Level 108 mmol/L Carbon Dioxide Level 24 mmol/L Anion Gap 11.0 mmol/L Blood Urea Nitrogen 10 mg/dl Creatinine 0.79 mg/dl Est Creatinine Clear Calc Drug Dose 98.2 ml/min Estimated GFR () 101.2 Estimated GFR (Non- 87.3 BUN/Creatinine Ratio 12.1 Random Glucose 106 mg/dl Lactic Acid Level 0.8 mmol/L Calcium Level 7.9 mg/dl Magnesium Level 2.0 mg/dl Total Bilirubin 0.2 mg/dl Aspartate Amino Transf (AST/SGOT) 144 U/L Alanine Aminotransferase (ALT/SGPT) 182 U/L Alkaline Phosphatase 197 U/L Total Protein 6.6 gm/dl Albumin 2.8 gm/dl Globulin 3.8 gm/dl Albumin/Globulin Ratio 0.7 Lipase 415 U/L Thyroid Stimulating Hormone (TSH) 4.900 uIu/ml Free Thyroxine 1.25 ng/dl Direct Bilirubin 0.1 mg/dl Immunoglobulin G 659.0 mg/dL Immunoglobulin A 251.0 mg/dL Immunoglobulin M 46.8 mg/dL Hepatitis B Surface Antigen NEG Hepatitis C Antibody NEG Assessment & Plan Assessment & Plan: Ms. 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 Her presentation is suggestive of a Reactive arthritis. She has been seen by infectious disease who made additional recommendations of checking cryoglobulins and viral hepatitis. Recommendations: 1. Follow-up pending labs. 2. Can treat joint symptoms with prednisone. Starting dose can be 40 mg daily ( ideally in the mornings to avoid insomnia) with plan to taper by 10 mg every week 3. Will arrange follow-up with rheumatology in 1-2 weeks after discharge. Case was discussed with Dr. Hinkle. Thank you for allowing rheumatology to participate in the care of this patient.
[2016-07-03] MEDS: CEFTRIAXONE SOD INJ 2,000 MG in DEXTROSE 5% 50ML 50 ML IV SCH (20:52)
[2016-07-04] VITALS (7 sets, daily range): BP systolic 109–161; BP diastolic 66–89; PULSE 76–102; TEMP 36.7–37.8; O2SAT 94–97
[2016-07-04 06:41] LABS: BASO % 0.1 %; BASO ABS # 0.01 K/uL (0-0.2); COMPLETE YES; HEMATOCRIT 31.9 % (37-47); IG% 0.4 %; LYMPH % 17.3 %; LYMPH ABS # 1.32 K/uL (1.2-3.4); MEAN CELL VOLUME 86.4 fL (80-100); MEAN CORPUSCULAR HEMOGLOBIN 27.6 pg (25-34); MEAN PLATELET VOLUME 10.8 fL (7.4-10.4); NEUT % 69.2 %; PLATELET COUNT 207 K/uL (130-400); RED BLOOD COUNT 3.69 M/uL (4.2-5.4); WHITE BLOOD COUNT 7.62 K/uL (4.8-10.8)
[2016-07-04 07:15] LABS: BUN/CREATININE RATIO 15.3 (10-20); CALCIUM 8.1 mg/dl (8.5-10.1); CREATININE 0.74 mg/dl (0.60-1.20); MAGNESIUM 2.1 mg/dl (1.8-2.4); POTASSIUM 3.7 mmol/L (3.5-5.1)
[2016-07-04 07:17] LABS: ALB/GLOB RATIO 0.7 (0.9-2)
[2016-07-04] MEDS: DOXYCYCLINE HYCLATE 100 MG CAP PO SCH (08:37)
[2016-07-04] MEDS: ACETAMINOPHEN 325 MG TAB PO PRN (08:41)
--- NOTE | 2016-07-04 11:47 | Progress Note ---
Subjective Date & Time of Service Jul 04, 2016 at 11:30 Pt evaluation today including: conversation w/ patient, physical exam, chart review, lab review This is a resident note for Infectious Diseases. The Attending is Dr. Goldberg. The patient was seen and examined at bedside. No acute overnight events. Pt reports feeling hot with a fever. No other complaints. Pt denies having any pain. Patient is resting comfortably in bed. Eating and urinating well. Plan of care was described to the patient and all questions were answered. Medications Current Inpatient Medications Medications (Trade) Dose Ordered Sig/Ashley Route Start Time Stop Time Status Last Admin Dose Admin Al Hydrox/Mg Hydrox/Simethicone (Maalox Max Susp) 15 ml Q4H PRN PO 07/01/16 14:45 07/31/16 14:44 Ondansetron HCl (Zofran Inj) 4 mg Q6H PRN IV 07/01/16 14:45 07/31/16 14:44 Atenolol (Tenormin Tab) 25 mg QAM PO 07/04/16 09:00 08/03/16 08:59 07/04/16 08:37 25 MG Acetaminophen (Tylenol Tab) 325 mg Q6H PRN PO 07/03/16 08:45 08/02/16 08:44 07/04/16 08:41 325 MG Review of Systems Constitutional: + fever, No chills Respiratory: No cough, No dyspnea on exertion, No shortness of breath, No sputum, No wheezing Cardiovascular: No chest pain, No edema Abdomen: No nausea, No vomiting Neurologic: + memory loss, + problem reported Endocrine: + fatigue Integumentary: + rash Objective Last 8 Hrs Date Time Temp Pulse Resp B/P Pulse Ox O2 Delivery O2 Flow Rate FiO2 07/04/16 08:00 Room Air 07/04/16 07:53 37.8 97 16 161/82 96 Room Air 07/04/16 04:54 36.7 89 18 158/89 97 Room Air 07/04/16 04:00 Room Air Physical Exam General Appearance: WD/WN, no apparent distress Eyes: normal inspection ENT: normal ENT inspection Respiratory/Chest: chest non-tender, lungs clear, normal breath sounds, no respiratory distress Cardiovascular: regular rate, rhythm, no edema, no gallop, no JVD, no murmur Abdomen/GI: non tender, soft, no organomegaly, no pulsatile mass Back: normal inspection, no CVA tenderness, no muscle spasm, normal range of motion Extremities/Musculoskelatal: no calf tenderness Neurologic/Psych: alert, normal mood/affect, oriented x 3 Skin: + pertinent finding (skin exam relatively unchanged from previous day, maculopapular rash on the LE bialterally, one area on the right alvarez that is excoriated and also covered by an area of erythema. ) Laboratory Results Laboratory Results (24 Hrs): Last 24 Hours Test 07/03/16 11:35 07/03/16 12:07 07/04/16 05:55 Direct Bilirubin 0.1 mg/dl Immunoglobulin G 659.0 mg/dL Immunoglobulin A 251.0 mg/dL Immunoglobulin M 46.8 mg/dL Hepatitis B Surface Antigen NEG Hepatitis C Antibody NEG White Blood Count 7.62 K/uL Red Blood Count 3.69 M/uL Hemoglobin 10.2 g/dL Hematocrit 31.9 % Mean Corpuscular Volume 86.4 fL Mean Corpuscular Hemoglobin 27.6 pg Mean Corpuscular Hemoglobin Concent 32.0 g/dl Platelet Count 207 K/uL Mean Platelet Volume 10.8 fL Neutrophils (%) (Auto) 69.2 % Lymphocytes (%) (Auto) 17.3 % Monocytes (%) (Auto) 10.0 % Eosinophils (%) (Auto) 3.0 % Basophils (%) (Auto) 0.1 % Neutrophils # (Auto) 5.27 K/uL Lymphocytes # (Auto) 1.32 K/uL Monocytes # (Auto) 0.76 K/uL Eosinophils # (Auto) 0.23 K/uL Basophils # (Auto) 0.01 K/uL RDW Standard Deviation 44.2 fL RDW Coefficient of Variation 13.9 % Immature Granulocyte % (Auto) 0.4 % Immature Granulocyte # (Auto) 0.03 K/uL Sodium Level 144 mmol/L Potassium Level 3.7 mmol/L Chloride Level 110 mmol/L Carbon Dioxide Level 24 mmol/L Anion Gap 10.0 mmol/L Blood Urea Nitrogen 11 mg/dl Creatinine 0.74 mg/dl Est Creatinine Clear Calc Drug Dose 105.8 ml/min Estimated GFR () 109.5 Estimated GFR (Non- 94.5 BUN/Creatinine Ratio 15.3 Random Glucose 96 mg/dl Calcium Level 8.1 mg/dl Magnesium Level 2.1 mg/dl Total Bilirubin 0.3 mg/dl Aspartate Amino Transf (AST/SGOT) 56 U/L Alanine Aminotransferase (ALT/SGPT) 130 U/L Alkaline Phosphatase 156 U/L Total Protein 6.2 gm/dl Albumin 2.5 gm/dl Globulin 3.7 gm/dl Albumin/Globulin Ratio 0.7 Lipase 293 U/L Assessment and Plan 50F with no significant PMHx is presenting with bilateral lower extremity rash x 1 day, joint pains and possible sinusitis and fevers x 1 month. Family history is significant for father who was diagnosed at age 45 with auto immune hepatitis. Patient denies IV drug use, has never been testing for Hep B or Hep C. Liver US significant for hepatomegaly likely 2/2 fatty infiltrate. Chest X- ray was negative. X-ray of the hands were negative. In light of constellation of symptoms, likely autoimmune etiology (exclude cryoglobulinemia 2/2 auto immune hepatitis), but will want to exclude Hep B and Hep C and viral causes ( including parvo). Blood cultures are negative. Pt is on Doxycycline and Ceftriaxone. Will defer to Dr. Goldberg if we want to discontinue Abx. Bilateral Lower Extremity Rash, Arthralgia x 2 days - Physical exam unchanged from previous day. - Likely autoimmune or parvo. Elevated AST, ALT and ALP - Father has auto-immune hepatitis, diagnosed at age 45, pt received blood transfusion at age 1 (1966). - Hep C negative, full Hep B panel is pending. - LFTs are improving today, continue to monitor. - If anything, auto immune in etiology, will continue to wait for lab results to come back. Sinusitis and Fevers x 1 month - Pt is still reporting slight fevers. Slight cough on exam, lungs and Chest X- ray are clear. Denies any history of travel. Blood cultures negative. - Consider discontinuing Doxycycline and Ceftriaxone in absence of source of infection. Will defer to Dr. Goldberg. PROVIDER ADDENDUM: Pt. examined and reviewed with regional medical director. Have recommended discontinuation of Abx. Will follow. Resident Involvement: Resident Care Provided Care Provided: Adult [facility] Medicine
--- NOTE | 2016-07-04 17:28 | Progress Note ---
Internal Med Progress Note Date of Service: Jul 04, 2016. Provider Documentation: SUBJECTIVE: having intermittent low grade fever no joint or muscle pain lower ext ankle /knee and upper thigh rash remains unchanged OBJECTIVE: Vital Signs-as noted below Exam: General-no sign of distress Eyes-sclera non icteric ENT-NAD Neck-no thyromegaly Lungs-CTA , no wheeze or rales Heart-regular S1/S2 Abdomen-soft, non tender Extremities-fine erythematous macular non blanching rash over both ankle joints , lower legs , upper thigh area , no blisters , no skin breakdown , rash are non tender no rash on Torso , back or upper ext Neuro-no focal deficit Lab data as noted below. ASSESSMENT & PLAN: Multiple Joint Pain, likely Reactive Arthritis Joint pain has improved Lyme titers negative, rheumatoid factor negative ESR mild elevation, CRP mild elevation appreciate rheumatology input likely reactive arthritis - started on oral prednisone Lower ext rash : possible due to above doubt systemic vasculitis , limited area of distribution Lyme titer, hepatitis panel , flu screen negative appreciate ID eval blood cultures -negative , normal white count D/c Abx and no evidence of bacterial infection noted Rheumatology following PO prednisone out pt follow up with Rheumatology and possible dermatology eval Elevated Transaminase : not sure of the etiology USG of liver : fatty liver Hepatis panel negative family hx of autoimmune hepatitis GI consult requested follow LFT's will need continued LFT monitoring as out pt Diarrhea resolved C. diff is negative PRN Imodium ordered DVT ppx SCDs FULL CODE DISPOSITION discharge home when medically stable Medicine follow up with Dr Rivera will need out pt Rheumatology and Dermatology follow up Vital Signs: Date Time Temp Pulse Resp B/P Pulse Ox O2 Delivery O2 Flow Rate FiO2 07/04/16 16:04 36.8 82 18 141/84 96 Room Air 07/04/16 16:00 Room Air 07/04/16 12:09 Room Air 07/04/16 11:59 37.0 76 16 109/66 96 Room Air 07/04/16 08:00 Room Air 07/04/16 07:53 37.8 97 16 161/82 96 Room Air 07/04/16 04:54 36.7 89 18 158/89 97 Room Air 07/04/16 04:00 Room Air 07/04/16 00:13 37.4 102 151/84 94 Room Air 07/04/16 00:10 Room Air 07/03/16 20:02 96 Room Air 07/03/16 19:45 37.1 89 18 134/80 95 Room Air Lab Results: Results Past 24 Hours Test 07/04/16 05:55 Range/Units White Blood Count 7.62 4.8-10.8 K/uL Red Blood Count 3.69 4.2-5.4 M/uL Hemoglobin 10.2 12.0-16.0 g/dL Hematocrit 31.9 37-47 % Mean Corpuscular Volume 86.4 80-100 fL Mean Corpuscular Hemoglobin 27.6 25-34 pg Mean Corpuscular Hemoglobin Concent 32.0 32-36 g/dl Platelet Count 207 130-400 K/uL Mean Platelet Volume 10.8 7.4-10.4 fL Neutrophils (%) (Auto) 69.2 % Lymphocytes (%) (Auto) 17.3 % Monocytes (%) (Auto) 10.0 % Eosinophils (%) (Auto) 3.0 % Basophils (%) (Auto) 0.1 % Neutrophils # (Auto) 5.27 1.4-6.5 K/uL Lymphocytes # (Auto) 1.32 1.2-3.4 K/uL Monocytes # (Auto) 0.76 0.11-0.59 K/uL Eosinophils # (Auto) 0.23 0-0.5 K/uL Basophils # (Auto) 0.01 0-0.2 K/uL RDW Standard Deviation 44.2 36.4-46.3 fL RDW Coefficient of Variation 13.9 11.5-14.5 % Immature Granulocyte % (Auto) 0.4 % Immature Granulocyte # (Auto) 0.03 0.00-0.02 K/uL Sodium Level 144 136-145 mmol/L Potassium Level 3.7 3.5-5.1 mmol/L Chloride Level 110 98-107 mmol/L Carbon Dioxide Level 24 21-32 mmol/L Anion Gap 10.0 3-11 mmol/L Blood Urea Nitrogen 11 7-18 mg/dl Creatinine 0.74 0.60-1.20 mg/dl Est Creatinine Clear Calc Drug Dose 105.8 ml/min Estimated GFR () 109.5 Estimated GFR (Non- 94.5 BUN/Creatinine Ratio 15.3 10-20 Random Glucose 96 70-99 mg/dl Calcium Level 8.1 8.5-10.1 mg/dl Magnesium Level 2.1 1.8-2.4 mg/dl Total Bilirubin 0.3 0.2-1 mg/dl Aspartate Amino Transf (AST/SGOT) 56 15-37 U/L Alanine Aminotransferase (ALT/SGPT) 130 12-78 U/L Alkaline Phosphatase 156 45-117 U/L Total Protein 6.2 6.4-8.2 gm/dl Albumin 2.5 3.4-5.0 gm/dl Globulin 3.7 2.5-4.0 gm/dl Albumin/Globulin Ratio 0.7 0.9-2 Lipase 293 73-393 U/L
[2016-07-04] MEDS ORDERED: LOPERAMIDE HCL 2 MG CAP PO PRN (19:30)
[2016-07-05 04:00] VITALS: BP 149/89; PULSE 93; TEMP 37.4; O2SAT 93
[2016-07-05 07:18] LABS: ALKALINE PHOSPHATASE 176 U/L (45-117); ALT/SGPT 115 U/L (12-78); AST/SGOT 39 U/L (15-37)
[2016-07-05 07:25] VITALS: BP 150/81; PULSE 89; TEMP 37; O2SAT 93
[2016-07-05] MEDS: ACETAMINOPHEN 325 MG TAB PO PRN (07:31)
[2016-07-05 12:26] VITALS: BP 115/67; PULSE 73; TEMP 36.9; O2SAT 96
--- NOTE | 2016-07-05 12:29 | Discharge Instructions ---
Discharge Instructions Admission Reason for Admission: Sepsis Discharge Discharge Diagnosis / Problem: REACTIVE ARTHRITIS , RASH Discharge Goals Goal(s): Improve disease control, Diagnostic testing Activity Recommendations Activity Limitations: resume your previous activity . Instructions / Follow-Up Instructions / Follow-Up HOSPITAL FOLLOW UP ON 07/11/2016 @ 11:10 AM WITH Aj Rivera MD [facility] LAB: LIVER FUNCTION TEST ON 07/11/16 RHEUMATOLOGY FOLLOW UP ON on 07/18/16 at [facility] WITH DR Wang, OFFICE WILL CALL TO CONFIRM TIME AND SCHEDULE DO NOT TAKE TYLENOL TILL YOUR LIVER FUNCTION NORMALIZES DO NOT DRINK ALCOHOL TILL YOUR LIVER FUNCTION NORMALIZES Current Hospital Diet Patient's current hospital diet: AHA Diet (Heart Healthy), Low Lactose Diet Discharge Diet Recommended Diet: Low Lactose Diet Pending Studies Studies pending at discharge: no Medical Emergencies . Who to Call and When: Medical Emergencies: If at any time you feel your situation is an emergency, please call 911 immediately. . Non-Emergent Contact Non-Emergency issues call your: Primary Care Provider . . "Provider Documentation" section prepared by Andressa Lozano. VTE Core Measure Inpt VTE Proph given/why not?: Unfractionated heparin SQ
[2016-07-05] MEDS ORDERED: TNR25 PO (12:34)
[2016-07-05 15:32] VITALS: BP 131/77; PULSE 77; TEMP 36.5; O2SAT 95
[2016-07-05] MEDS ORDERED: PRED20TA2 PO (17:44)
--- NOTE | 2016-07-05 17:48 | Progress Note ---
Internal Med Progress Note Date of Service: Jul 05, 2016. Provider Documentation: SUBJECTIVE: joints are still pretty swollen rash in lower extremity has improved no fever or chills OBJECTIVE: Vital Signs-as noted below Exam: General-no sign of distress Eyes-sclera non icteric ENT-NAD Neck-no thyromegaly Lungs-CTA , no wheeze or rales Heart-regular S1/S2 Abdomen-soft, non tender Extremities-fine erythematous macular non blanching rash over both ankle joints , lower legs , upper thigh area , no blisters , no skin breakdown , rash are non tender no rash on Torso , back or upper ext Neuro-no focal deficit Lab data as noted below. ASSESSMENT & PLAN: Multiple Joint Pain, likely Reactive Arthritis: complains of joint pain /and swelling will start on low dose prednisone Lyme titers negative, rheumatoid factor negative ESR mild elevation, CRP mild elevation appreciate rheumatology input likely reactive arthritis - out pt follow up with Rheumatology Lower ext rash : improved possible due to above doubt systemic vasculitis , limited area of distribution Lyme titer, hepatitis panel , flu screen negative appreciate ID eval blood cultures -negative , normal white count D/c Abx and no evidence of bacterial infection noted Rheumatology following PO prednisone out pt follow up with Rheumatology Elevated Transaminase : levels continues to improve not sure of the etiology USG of liver : fatty liver Hepatis panel negative family hx of autoimmune hepatitis follow LFT's will need continued LFT monitoring as out pt DVT ppx SCDs FULL CODE DISPOSITION possible discharge home tomorrow Medicine follow up with Dr Rivera will need out pt Rheumatology follow up Vital Signs: Date Time Temp Pulse Resp B/P Pulse Ox O2 Delivery O2 Flow Rate FiO2 07/05/16 16:00 Room Air 07/05/16 15:32 36.5 77 16 131/77 95 Room Air 07/05/16 12:26 36.9 73 18 115/67 96 Room Air 07/05/16 12:00 Room Air 07/05/16 08:00 Room Air 07/05/16 07:25 37.0 89 18 150/81 93 Room Air 07/05/16 04:10 Room Air 07/05/16 04:00 37.4 93 16 149/89 93 Room Air 07/05/16 00:20 Room Air 07/04/16 23:46 37.3 94 16 133/74 96 Room Air 07/04/16 19:57 Room Air 07/04/16 19:54 37.3 84 16 130/86 97 Room Air Lab Results: Results Past 24 Hours Test 07/05/16 05:44 Range/Units Total Bilirubin 0.4 0.2-1 mg/dl Direct Bilirubin < 0.1 0-0.2 mg/dl Aspartate Amino Transf (AST/SGOT) 39 15-37 U/L Alanine Aminotransferase (ALT/SGPT) 115 12-78 U/L Alkaline Phosphatase 176 45-117 U/L Total Protein 6.8 6.4-8.2 gm/dl Albumin 2.7 3.4-5.0 gm/dl
[2016-07-05] MEDS ORDERED: IBUPROFEN 200 MG TAB PO PRN (18:00)
[2016-07-05 23:34] LABS: COXSACKIE B1 <1:8 (<1:8); COXSACKIE B2 <1:8 (<1:8); COXSACKIE B3 <1:8 (<1:8); COXSACKIE B4 <1:8 (<1:8); COXSACKIE B5 <1:8 (<1:8); EBV EARLY ANTIGEN AB <0.91 INDEX; EHRLICHIA CHAFF IGG AB <1:64 (<1:64); EHRLICHIA CHAFF IGM AB <1:20 (<1:20); EPSTEIN BARR VIR CAPSID IGG >5.00 INDEX; HLA-B27** TC 528X NEGATIVE (NEGATIVE); MYELOPEROXIDASE AB <1.0 AI (<1.0); PARVOVIRUS IgG INDEX 0.2 (<0.9); PARVOVIRUS IgM INDEX 0.1 (<0.9)
[2016-07-06 00:12] VITALS: BP 119/70; PULSE 88; TEMP 37.1; O2SAT 97
[2016-07-06 06:30] LABS: ALKALINE PHOSPHATASE 168 U/L (45-117); ALT/SGPT 95 U/L (12-78); AST/SGOT 31 U/L (15-37)
[2016-07-06 07:51] VITALS: BP 127/73; PULSE 81; TEMP 36.5; O2SAT 97
[2016-07-06 15:46] VITALS: BP 131/82; PULSE 84; TEMP 36.8; O2SAT 95
--- NOTE | 2016-07-06 16:34 | Discharge Summary ---
Discharge Summary Admission Date: Jul 01, 2016 at 14:43 Discharge Date: Jul 06, 2016 Discharge Disposition: Home Principal Diagnosis: REACTIVE ARTHRITIS , RASH Consultations: RHEUMATOLOGY ID Medication Reconciliation New Medications: Prednisone (Prednisone Tab) 20 Mg Tab 0 PO DAILY, #7 TAB 2 TABS DAILY FOR 2 DAYS, THEN 1 TAB DAILY FOR 2 DAYS, THEN 1/2 TAB DAILY FOR 2 DAYS. Atenolol (Atenolol) 25 Mg Tab 25 MG PO QAM for 30 Days, #30 TAB 3 Refills Referrals At Discharge Follow up Referrals: [facility] Referral - Please Call For Appointment @ [facility] with Yvette Wang MD Admission Information HPI (per Admitting provider): DATE OF ADMISSION: 07/01/2016 CHIEF COMPLAINT: Rash in the legs and fever, upper respiratory infection. HISTORY OF PRESENT ILLNESS: This 50-year-old female with no significant past medical history presents with ongoing sinus symptoms since last 1 month and dry cough is not getting better. She is taking [id number] sinus medications but last Thursday she was nauseous , but today nausea has resolved.But today she was feeling chills and fever and some headaches and also she developed a rash in her both ankles and was also having bilateral wrist pain on movement and right ankle pain, so she came to the ER. In the ER, she has a temp spike of 39.2. Has tachycardia. Blood pressure is stable. The patient denies any chest pain, nausea, vomiting at this time. No shortness of breath. No abdominal pain, nausea has resolved and no vomiting, no diarrhea. No swelling in the legs.Resting comfortably. Denies any tick bites. ALLERGIES: No known drug allergies. PAST MEDICAL HISTORY: As mentioned above. PAST SURGICAL HISTORY: Dental surgery and bunion correction of both her feet. MEDICATIONS: Multivitamin. FAMILY HISTORY: Significant for mother has asthma, hypertension and COPD. Father had hypertension. Maternal grandfather had prostate cancer. Maternal grandmother developed colon cancer. Paternal grandfather of CT at age of 66. REVIEW OF SYMPTOMS: As per HPI. Physical Exam (per Admitting): PHYSICAL EXAMINATION: GENERAL: The patient is of moderate build, not in distress. VITAL SIGNS: Temperature 37.2, pulse 108, respiratory rate 18, blood pressure 180/86, oxygen 96% room air. HEAD, EYES, EARS, NOSE, AND THROAT: No pallor, no icterus. Pupils equal, round, and reactive to light. NECK: No JVD, no neck masses, no carotid bruits. CARDIOVASCULAR: S1, S2 heard, regular rate and rhythm, no murmur, no gallop. RESPIRATORY SYSTEM: Clear to auscultation bilaterally. No wheezing, no crackles. ABDOMEN: Soft, bowel sounds present. Nontender. No distention. CENTRAL NERVOUS SYSTEM: Cranial nerves II-XII grossly intact. Nonfocal. EXTREMITIES: Bilateral wrists were slightly swollen and tender to palpation and movement. Skin has macular rash seen on both lower extremities from ankle to the skin. Hospital Course Multiple Joint Pain, likely Reactive Arthritis: complains of joint pain /and swelling will start on low dose prednisone Lyme titers negative, rheumatoid factor negative ESR mild elevation, CRP mild elevation appreciate rheumatology input likely reactive arthritis - Joint pain and swelling markedly improved with low dose steroid discharge home with PO Prednisone taper out pt follow up with Rheumatology Lower ext rash : resolved possible due to above doubt systemic vasculitis , limited area of distribution Lyme titer, hepatitis panel , flu screen negative appreciate ID eval blood cultures -negative , normal white count D/c Abx and no evidence of bacterial infection noted Rheumatology following PO prednisone taper out pt follow up with Rheumatology Elevated Transaminase : possible due to viral illness levels continues to improve ; ALT has normalized, mild elevation of AST USG of liver : fatty liver Hepatis panel negative family hx of autoimmune hepatitis follow LFT's will need continued LFT monitoring as out pt DVT ppx SCDs FULL CODE DISPOSITION discharge home today Medicine follow up with Dr Rivera will need out pt Rheumatology follow up Total time spent on discharge = 35 MINS This includes examination of the patient, discharge planning, medication reconciliation, and communication with other providers. Discharge Instructions DI: Medical v4 Discharge Instructions Admission Reason for Admission: Sepsis Discharge Discharge Diagnosis / Problem: REACTIVE ARTHRITIS , RASH Discharge Goals Goal(s): Improve disease control, Diagnostic testing Activity Recommendations Activity Limitations: resume your previous activity . Instructions / Follow-Up Instructions / Follow-Up HOSPITAL FOLLOW UP ON 07/11/2016 @ 11:10 AM WITH Aj Rivera MD [facility] LAB: LIVER FUNCTION TEST ON 07/11/16 RHEUMATOLOGY FOLLOW UP ON on 07/18/[address] [facility] WITH DR Wang, OFFICE WILL CALL TO CONFIRM TIME AND SCHEDULE DO NOT TAKE TYLENOL TILL YOUR LIVER FUNCTION NORMALIZES DO NOT DRINK ALCOHOL TILL YOUR LIVER FUNCTION NORMALIZES Current Hospital Diet Patient's current hospital diet: AHA Diet (Heart Healthy), Low Lactose Diet Discharge Diet Recommended Diet: Low Lactose Diet Pending Studies Studies pending at discharge: no Medical Emergencies . Who to Call and When: Medical Emergencies: If at any time you feel your situation is an emergency, please call 911 immediately. . Non-Emergent Contact Non-Emergency issues call your: Primary Care Provider . . "Provider Documentation" section prepared by Andressa Lozano. VTE Core Measure Inpt VTE Proph given/why not?: Unfractionated heparin SQ Additional Copies To Yvette Wang MD; Aj Rivera M.D. ([facility])
[2016-07-06 17:17] VITALS: BP 131/82; PULSE 84; TEMP 36.8; O2SAT 95
== END 2016-07-06 17:30 | disposition home or self-care (01) | DRG 546 ==
LOC: ENRESERVTM → ENRESERVDT → C.EDB 11:57 → C.MED 14:43
PROVIDERS: ADMIT Family Medicine; ATTEND Hospitalist
DX: M02.39 Reiter's disease, multiple sites (principal); I49.3 Ventricular premature depolarization; J06.9 Acute upper respiratory infection, unspecified; R21 Rash and other nonspecific skin eruption; R00.0 Tachycardia, unspecified; R19.7 Diarrhea, unspecified; R74.0 Nonspecific elevation of levels of transaminase and lactic acid dehydrogenase [LDH]; R94.5 Abnormal results of liver function studies; K76.0 Fatty (change of) liver, not elsewhere classified; S80.811A Abrasion, right lower leg, initial encounter; X58.XXXA Exposure to other specified factors, initial encounter; I10 Essential (primary) hypertension; J32.9 Chronic sinusitis, unspecified; Z83.79 Family history of other diseases of the digestive system

== ENCOUNTER 2023-03-25 14:12 | Observation (INO) ==
--- NOTE | 2023-03-25 15:34 | XRay Report ---
XR chest 1V not portable HISTORY: 57 years-old Female Chest pain, nonspecific COMPARISON: 07/01/2016 TECHNIQUE: PA view of the chest FINDINGS: Cardiomediastinal and hilar silhouettes are within normal limits. No pneumothorax, pleural effusion o r airspace consolidation. Unchanged right hemidiaphragmatic elevation. Degenerative changes of the sh oulders and spine. IMPRESSION: No acute process. ACT 112: Negative or not required by law. The above report was generated using voice recognition software. It may contain grammatical, syntax o r spelling errors. Electronically signed by: Cristian Delacruz M.D. 03/25/2023 3:33 PM
[2023-03-25] MEDS ORDERED: ALBUTEROL 0.083% NEBU SOLN 3 ML VIAL NEB STA (15:55)
--- NOTE | 2023-03-25 15:57 | Emergency Department Note ---
Impression & Plan Hypoxia, Shortness of breath ED Provider Note NAME: HARSHIL KOHLER AGE: 57 SEX: F : 1965 ARRIVES VIA: Ambulance INFORMANT: Patient ED PROVIDER(S): Amrit Castro DO CHIEF COMPLAINT: shortness of breath HPI: Patient is a 57-year-old female who presents to the ER for shortness of breath. Her symptoms started in January and significantly worsened over the past 24 hours. She admits to cough, congestion, and which has been present for several weeks. She does not believe that has worsened recently. She denies any chest pain. She notes that symptoms are worse when she lays flat or when she exerts herself. She notes she is no longer able to really get around as she is significantly short of breath. She was seen and had pulmonary function studies per her report and notes that albuterol has not been helping. She has been unable to get into see a c d still operator. Family at bedside notes that she cannot get into see a c d still operator till June. Per report she was brought in by EMS and found to be hypoxic by them at 88%. She placed on 2 L. ADDITIONAL HISTORY OBTAINED: Per HPI Chronic Medical/Social Conditions Affecting Care: Per HPI PAST MEDICAL HISTORY:See Below PAST SURGICAL HISTORY:See Below FAMILY HISTORY:See Below SOCIAL HISTORY:See Below HOME MEDICATIONS:See Below ALLERGIES:See Below VITALS:See Below PHYSICAL EXAMINATION: GENERAL: Sitting up in bed, on the edge of bed, dyspneic with conversation, on 4 L nasal cannula EYE EXAM: normal conjunctiva. PERRL and EOM's grossly intact. OROPHARYNX: no exudate, no erythema, lips, buccal mucosa, and tongue normal and mucous membranes are moist NECK: supple, no nuchal rigidity, no adenopathy, non-tender LUNGS: Wheezing bilaterally. Normal chest wall mechanics HEART: no murmurs, S1 normal and S2 normal ABDOMEN: abdomen soft, non-tender, normo-active bowel sounds, no masses, no rebound or guarding. UPPER EXTREMITIES: upper extremities are grossly normal. LOWER EXTREMITIES: Mild pitting edema in the lower extremities. Calves are equal bilateral. NEURO EXAM: Normal sensorium, cranial nerves II-XII grossly intact, normal speech, no gross weakness of arms, no gross weakness of legs. MEDICAL DECISION MAKING: Patient is a 57-year-old female who presents ER for shortness of breath as described above. She was found to be hypoxic at 88 to 89% on room air. Was placed on 2 L nasal cannula. She is given neb treatments and Solu-Medrol. Symptoms did improve. Labs show no significant leukocytosis or anemia. INR unremarkable. D-dimer was negative at 440 0. BMP along LFTs bilirubin and troponin was negative. Pro-Gonzalo was negative. Viral panel was negative. Chest x-ray was clean. Patient was updated bedside and discussed with the hospitalist for further evaluation management treatment. External Records Reviewed: Records from EMS were reviewed which shows that she was hypoxic Consults/Care Managements Discussions: Per [facility] Triage Nursing notes reviewed. Limited review of prior medical records performed Vital Signs: reviewed and remarkable for Hypoxic Differential diagnosis: Differential diagnoses includes but is not limited to pneumonia, bronchitis, COPD/Asthma exacerbation, pneumothorax, pulmonary embolism, congestive heart failure, acute coronary syndrome ER treatment provided: See below Diagnostics interpreted by me include EKG and cardiac monitoring as listed below: -Cardiac Monitoring: An order was placed for continuous cardiac monitoring. The monitor shows a rate of 85 with sinus rhythm. -ECG: Sinus rhythm rate 80 Normal axis No PVCs QTc 424 -Laboratory studies:Interpreted by me as stated above in MDM and shown below. Imaging studies: Xrays: As interpreted by me: Portable AP upright 1 view of the chest shows no focal infiltrate CTs show: none Procedures:none Critical Care: I have personally spent 32 minutes of critical care time in the direct management of this patient. This includes bedside care, interpretation of diagnostic studies, and testing, discussion with consultants, patient, and family members, and other required patient management activities. This 32 minutes is in excess of all separately billable procedures. Past Med/Surg History Medical History (Updated 03/25/23 @ 22:20 by Amrit Castro DO) GERD (gastroesophageal reflux disease) HTN (hypertension) SOB (shortness of breath) Surgical History (Updated 03/25/23 @ 19:54 by ADOLPH Kiser) No pertinent past surgical history Family History (Updated 03/25/23 @ 19:54 by ADOLPH Kiser) Other Asthma COPD (chronic obstructive pulmonary disease) Social History (Updated 03/25/23 @ 19:55 by ADOLPH Kiser) Smoking Status: Never smoker Hx Alcohol Use: No Hx Substance Use: No Preferred Language: [place] Citizen Communication Ability: Effective Documentation Engineer Required: No Beliefs That Will Affect Care: None Current Living Situation: Family Feels Safe at Home: Yes Safety Concerns: Feels Safe At This Time Allergies Allergies Allergy/AdvReac Type Severity Reaction Status Date / Time No Known Allergies Allergy Verified 03/25/23 17:18 Home Meds Home Medications Medication Instructions Recorded Confirmed albuterol sulfate 90 mcg/actuation 2 puff inhalation DIRECTED PRN 03/25/23 03/25/23 aerosol inhaler (Ventolin HFA) Shortness Of Breath Or Wheezing atenolol 50 mg tablet 50 mg PO QAM 03/25/23 03/25/23 diclofenac sodium 75 mg 75 mg PO BID 03/25/23 03/25/23 tablet,delayed release fexofenadine 180 mg tablet 180 mg PO QAM 03/25/23 03/25/23 fluticasone propionate 50 2 spray intranasal DAILY 03/25/23 03/25/23 mcg/actuation nasal spray,suspension omeprazole 20 mg capsule,delayed 20 mg PO QAM 03/25/23 03/25/23 release Results & Data (ED) Vital Signs Vital Signs - 24 hr 03/25/23 14:05 03/25/23 14:05 03/25/23 15:46 Temperature 36.6 C Temperature Source Oral Pulse Rate 89 Respiratory Rate 18 Blood Pressure 180/97 H Blood Pressure Mean 124 Pulse Oximetry 93 94 Oxygen Delivery Method Room Air Room Air Nasal Cannula Oxygen Flow Rate 2 Sepsis Recent Fever Within 48 Hours No Sepsis New/Unexplained Change in Mental Status N/A Sepsis Action Taken by Nursing No Action Required 03/25/23 15:46 03/25/23 15:48 03/25/23 15:50 Temperature Temperature Source Pulse Rate 83 84 82 Respiratory Rate 20 20 Blood Pressure 143/98 H Blood Pressure Mean 113 Pulse Oximetry 94 94 Oxygen Delivery Method Nasal Cannula Nasal Cannula Oxygen Flow Rate 2 2 Sepsis Recent Fever Within 48 Hours Sepsis New/Unexplained Change in Mental Status Sepsis Action Taken by Nursing 03/25/23 16:10 03/25/23 16:31 03/25/23 17:20 Temperature Temperature Source Pulse Rate 82 89 88 Respiratory Rate 12 12 20 Blood Pressure 147/94 H 128/90 125/73 Blood Pressure Mean 111 102 90 Pulse Oximetry 98 98 95 Oxygen Delivery Method Nasal Cannula Nasal Cannula Nasal Cannula Oxygen Flow Rate 2 2 2 Sepsis Recent Fever Within 48 Hours Sepsis New/Unexplained Change in Mental Status Sepsis Action Taken by Nursing 03/25/23 17:30 Temperature Temperature Source Pulse Rate 90 Respiratory Rate 21 Blood Pressure 145/100 H Blood Pressure Mean 115 Pulse Oximetry 95 Oxygen Delivery Method Nasal Cannula Oxygen Flow Rate 2 Sepsis Recent Fever Within 48 Hours Sepsis New/Unexplained Change in Mental Status Sepsis Action Taken by Nursing Laboratory Data 03/25/23 15:45 03/25/23 15:45 Lab Results 03/25/23 03/25/23 03/25/23 Range/Units 15:45 16:00 16:11 WBC 9.80 (4.8-10.8) K/ul RBC 4.80 (4.20-5.40) M/uL Hgb 14.0 (12.0-16.0) g/dl Hct 44.0 (37.0-47.0) % MCV 91.7 (80.0-100.0) fL MCH 29.2 (25.0-34.0) pg MCHC 31.8 L (32.0-36.0) g/dL RDW Std Deviation 45.7 (36.4-46.3) fL RDW Coeff of Deuce 13.4 (11.5-14.5) % Plt Count 276 (130-400) K/uL MPV 11.1 (9.4-12.4) fL Immature Gran % (Auto) 0.3 % Neut % (Auto) 75.6 % Lymph % (Auto) 15.7 % Kent % (Auto) 5.1 % Eos % (Auto) 2.8 % Baso % (Auto) 0.5 % Neut # (Auto) 7.41 H (1.40-6.50) K/uL Lymph # (Auto) 1.54 (1.20-3.40) K/uL Kent # (Auto) 0.50 (0.11-0.59) K/uL Eos # (Auto) 0.27 (0.00-0.50) K/uL Baso # (Auto) 0.05 (0.00-0.20) K/uL Immature Gran # (Auto) 0.03 (0.01-0.20) K/uL PT 10.7 (9.0-12.0) Seconds INR 1.0 (0.9-1.1) APTT 28.3 (21.0-31.0) Seconds PTT Ratio 1.0 D-Dimer 440 (0-500) ug/L FEU Sodium 140 (136-145) mmol/L Potassium 4.2 (3.5-5.1) mmol/L Chloride 105 (98-107) mmol/L Carbon Dioxide 28 (21-32) mmol/L Anion Gap 7 (3-11) BUN 13 (6-23) mg/dl Creatinine 0.77 (0.6-1.2) mg/dl Est Cr Clr Drug Dosing 97.4 ml/min Est GFR ( Amer) 99.3 ml/min Est GFR (Non-Af Amer) 85.7 ml/min BUN/Creatinine Ratio 16.9 (10-20) Glucose 127 H (70-99(Fasting)) mg/dl Calcium 9.9 (8.6-10.3) mg/dl Phosphorus 3.8 (2.5-4.9) mg/dl Magnesium 1.9 (1.7-2.4) mg/dl Total Bilirubin 0.6 (0.2-1.0) mg/dl AST 65 H (13-39) U/L ALT 65 H (7-52) U/L Alkaline Phosphatase 104 (34-104) U/L Troponin I High Sens 7.2 (0-14) pg/ml B-Natriuretic Peptide 61 (0-100) pg/ml Total Protein 7.5 (6.0-8.3) gm/dl Albumin 4.5 (3.4-5.0) gm/dl Globulin 3.0 (2.5-4.0) gm/dl Albumin/Globulin Ratio 1.5 (0.9-2) Procalcitonin < 0.05 (0-0.5) ng/ml Adenovirus (PCR) Not Detected (NotDetected) B. pertussis DNA (PCR) Not Detected (NotDetected) B.parapertussis DNA PCR Not Detected (NotDetected) C. pneumoniae DNA (PCR) Not Detected (NotDetected) Coronavirus OC43 (PCR) Not Detected (NotDetected) Coronavirus HKU1 (PCR) Not Detected (NotDetected) Coronavirus 229E (PCR) Not Detected (NotDetected) SARS-CoV-2 (PCR) Not Detected (NotDetected) Coronavirus NL63 (PCR) Not Detected (NotDetected) Human Metapneumovir PCR Not Detected (NotDetected) Influenza Type A (PCR) Not Detected (NotDetected) Influenza Type B (PCR) Not Detected (NotDetected) M. pneumoniae (PCR) Not Detected (NotDetected) Parainfluenza 1 (PCR) Not Detected (NotDetected) Parainfluenza 2 (PCR) Not Detected (NotDetected) Parainfluenza 3 (PCR) Not Detected (NotDetected) Parainfluenza 4 (PCR) Not Detected (NotDetected) RSV (PCR) Not Detected (NotDetected) Entero/Rhino (PCR) Not Detected (NotDetected) Administered Medications Doxycycline Hyclate 100 mg/ (Dextrose) 100 mls @ 50 mls/hr IV Q12H SAGE Stop: 04/01/23 20:59 Last Admin: 03/25/23 21:29 Dose: 50 mls/hr Documented By: ARIELLA Discontinued Medications Albuterol (Albuterol 0.083% Nebu Soln 3 Ml Vial) 5 mg NEB NOW STA; Protocol Stop: 03/25/23 15:56 Last Admin: 03/25/23 16:02 Dose: 5 mg Documented By: CELESTINE Albuterol (Albuterol 0.083% Nebu Soln 3 Ml Vial) 2.5 mg NEB QID SAGE; Protocol Stop: 04/24/23 20:59 Last Admin: 03/25/23 22:02 Dose: Not Given Documented By: JEANIE Methylprednisolone (Methylprednisolone 40 Mg/Ml Vial) 40 mg IV NOW STA Stop: 03/25/23 15:56 Last Admin: 03/25/23 16:02 Dose: 40 mg Documented By: CELESTINE Imaging Data Radiologist's Impression: Chest X-Ray 03/25/23 14:36 XR chest 1V not portable HISTORY: 57 years-old Female Chest pain, nonspecific COMPARISON: 07/01/2016 TECHNIQUE: PA view of the chest FINDINGS: Cardiomediastinal and hilar silhouettes are within normal limits. No pneumothorax, pleural effusion or airspace consolidation. Unchanged right hemidiaphragmatic elevation. Degenerative changes of the shoulders and spine. IMPRESSION: No acute process. ACT 112: Negative or not required by law. The above report was generated using voice recognition software. It may contain grammatical, syntax or spelling errors. Electronically signed by: Cristian Delacruz M.D. 03/25/2023 3:33 PM Discharge Plan Visit Data Chief Complaint: Shortness of Breath/Dyspnea Stated Complaint: SHORTNESS OF BREATH ED Provider: Amrit Castro Discharge Problem: Hypoxia, Shortness of breath Patient Disposition: Admitted As Inpatient Discharge Instructions Interventions: ED Discharge Assessment Last Done: 03/25/23 19:55
[2023-03-25 16:12] LABS: Basophils # (auto) 0.05 K/uL (0.00-0.20); Basophils % (auto) 0.5 %; Eosinophils # (auto) 0.27 K/uL (0.00-0.50); Eosinophils % (auto) 2.8 %; Immature Granulocytes # (auto) 0.03 K/uL (0.01-0.20); Immature Granulocytes % (auto) 0.3 %; Lymphocytes # (auto) 1.54 K/uL (1.20-3.40); Lymphocytes % (auto) 15.7 %; Mean Corpuscular Hemoglobin 29.2 pg (25.0-34.0); Mean Corpuscular Hgb Conc 31.8 g/dL (32.0-36.0); Mean Corpuscular Volume 91.7 fL (80.0-100.0); Mean Platelet Volume 11.1 fL (9.4-12.4); Monocytes % (auto) 5.1 %; Neutrophils # (auto) 7.41 K/uL (1.40-6.50); Neutrophils % (auto) 75.6 %; Platelet Count 276 K/uL (130-400); RDW Coefficient of Variation 13.4 % (11.5-14.5); RDW Standard Deviation 45.7 fL (36.4-46.3)
[2023-03-25 16:30] LABS: Albumin Globulin Ratio 1.5 (0.9-2); Albumin Level 4.5 gm/dl (3.4-5.0); BUN Creatinine Ratio 16.9 (10-20); Bilirubin,Total 0.6 mg/dl (0.2-1.0); Calcium 9.9 mg/dl (8.6-10.3); Creatinine Clr Calc Pharmacy 97.4 ml/min; Est GFR (African American) 99.3 ml/min; Est GFR (Non-African American) 85.7 ml/min; Potassium 4.2 mmol/L (3.5-5.1); Total Protein 7.5 gm/dl (6.0-8.3)
[2023-03-25 16:37] LABS: Troponin I High Sensitivity 7.2 pg/ml (0-14)
[2023-03-25 16:47] LABS: Partial Thromboplastin Time 28.3 Seconds (21.0-31.0); Prothrombin Time 10.7 Seconds (9.0-12.0)
[2023-03-25 17:19] LABS: Adenovirus PCR Not Detected (NotDetected); Bordetella parapertussis PCR Not Detected (NotDetected); Bordetella pertussis PCR Not Detected (NotDetected); Chlamydia pneumoniae PCR Not Detected (NotDetected); Coronavirus 229E PCR Not Detected (NotDetected); Coronavirus CoV-2 (COVID19)PCR Not Detected (NotDetected); Coronavirus HKU1 PCR Not Detected (NotDetected); Coronavirus NL63 PCR Not Detected (NotDetected); Coronavirus OC43PCR Not Detected (NotDetected); Human Metapneumovirus PCR Not Detected (NotDetected); Influenza A PCR Not Detected (NotDetected); Influenza B PCR Not Detected (NotDetected); Mycoplasma pneumoniae PCR Not Detected (NotDetected); Parainfluenza Virus 1 PCR Not Detected (NotDetected); Parainfluenza Virus 2 PCR Not Detected (NotDetected); Parainfluenza Virus 3 PCR Not Detected (NotDetected); Parainfluenza Virus 4 PCR Not Detected (NotDetected); Respiratory Syncytial VirusPCR Not Detected (NotDetected); Rhinovirus/Enterovirus PCR Not Detected (NotDetected)
[2023-03-25 17:23] LABS: D Dimer 440 ug/L FEU (0-500)
[2023-03-25] MEDS ORDERED: POLYETHYLENE (MIRALAX) 17 GM PACK PO PRN (18:00)
[2023-03-25] MEDS ORDERED: ALUMINUM/MAGNESIUM SUSP 30 ML UDC PO PRN (18:00)
[2023-03-25] MEDS ORDERED: ONDANSETRON INJ 2 MG/ML 2 ML VIAL IV PRN (18:00)
[2023-03-25] MEDS ORDERED: MAGNESIUM HYDROXIDE SUSP 30 ML UDC PO PRN (18:00)
[2023-03-25] MEDS ORDERED: ACETAMINOPHEN 325 MG TAB PO PRN (18:00)
--- NOTE | 2023-03-25 18:07 | History & Physical Report ---
Date of Service March 25, 2023 Assessment & Plan (1) SOB (shortness of breath): (2) HTN (hypertension): (3) GERD (gastroesophageal reflux disease): Plan Ms. Santillan is a 57 year old that presents to the ED via EMS with SOB. pt has had intermittent SOB for over a year. She reports that she was sitting doing her work and had a coughing fit and then could not breath very well. No orthopnea, in the ED, the breathing treatment did help. Feels that her lungs wont expand and that " she has something stuck in her throat". Reports productive and non- productive cough. When productive, thick connor sputum. She has recently had PFT's performed as an outpatient on 03/05/23: FEV1 1.42. Patient is scheduled to see [facility] on 07/13/23. Denies tobacco, alcohol or recreational drug use. No leukocytosis, BNP 61, Trop 7.1, Biofire negative, d dimer negative. Last ECHO 06/2021: EF 55-59%, LV wall motion normal without valve abnormalities. Pt denies fevers, chills, ROYAL, dizziness, chest pain, abdominal pain or tenderness, recent falls or trauma. Ultimately, patient with longstanding shortness of breath that is affecting her quality of life. For now, obtain sputum culture, continue nebs, steroids, start IV Doxy for empiric coverage of sputum, and obtain pulmonary consult. Shortness of breath: acute uncontrolled Productive cough with thick connor sputum intermittently Biofire negative DDimer negative and BNP normal CXR negative for acute pulmonary disease Obtain sputum culture Relief with neblizer in ED; continue duonebs QID + Q2 PRN Methylprednisone 40 mg IV given in ED; continue TID and adjust tomorrow Empirically treat with Doxy IV; adjust based on culture results Does not appear toxic Chest CT without contrast ordered Obtain repeat ECHO Consult pulmonary medicine HTN: Chronic stable Takes Atenolol; continue GERD: Chronic stable Takes Omeprazole; continue Disposition: PCP: Dr. Beaver Code Status: Full code VTE Prophylaxis: Lovenox SQ I spent a total of 88 minutes coordinating, documenting, and providing care for this patient excluding time spent in the performance of separately billed services. All of the aforementioned completed while collaborating with the assigned attending physician for a full treatment plan. Please see their addendum for further details. History of Present Illness Chief Complaint: Shortness of breath Primary Care Provider: Dave Beaver MD Ms. Santillan is a 57 year old that presents to the ED via EMS with SOB. pt has had intermittent SOB for over a year. She reports that she was sitting doing her work and had a coughing fit and then could not breath very well. No orthopnea, in the ED, the breathing treatment did help. Feels that her lungs wont expand and that " she has something stuck in her throat". Reports productive and non- productive cough. When productive, thick connor sputum. She has recently had PFT's performed as an outpatient on 03/05/23: FEV1 1.42. Patient is scheduled to see [facility] on 07/13/23. Denies tobacco, alcohol or recreational drug use. No leukocytosis, BNP 61, Trop 7.1, Biofire negative, d dimer negative. Last ECHO 06/2021: EF 55-59%, LV wall motion normal without valve abnormalities. Pt denies fevers, chills, ROYAL, dizziness, chest pain, abdominal pain or tenderness, recent falls or trauma. Ultimately, patient with longstanding shortness of breath that is affecting her quality of life. For now, obtain sputum culture, continue nebs, steroids, start IV Doxy for empiric coverage of sputum, and obtain pulmonary consult. Patient will be admitted for further evaluation and management. Please see A/P for further details. Allergies Allergy/AdvReac Type Severity Reaction Status Date / Time No Known Allergies Allergy Verified 03/25/23 17:18 Home Medications Medication Instructions Recorded Confirmed Type albuterol sulfate 90 mcg/actuation 2 puff inhalation DIRECTED PRN 03/25/23 03/25/23 History aerosol inhaler (Ventolin HFA) Shortness Of Breath Or Wheezing atenolol 50 mg tablet 50 mg PO QAM 03/25/23 03/25/23 History diclofenac sodium 75 mg 75 mg PO BID 03/25/23 03/25/23 History tablet,delayed release fexofenadine 180 mg tablet 180 mg PO QAM 03/25/23 03/25/23 History fluticasone propionate 50 2 spray intranasal DAILY 03/25/23 03/25/23 History mcg/actuation nasal spray,suspension omeprazole 20 mg capsule,delayed 20 mg PO QAM 03/25/23 03/25/23 History release Past Med/Surg History Medical History (Updated 03/25/23 @ 22:20 by Amrit Castro DO) GERD (gastroesophageal reflux disease) HTN (hypertension) SOB (shortness of breath) Surgical History (Updated 03/25/23 @ 19:54 by ADOLPH Kiser) No pertinent past surgical history Family History (Updated 03/25/23 @ 19:54 by ADOLPH Kiser) Other Asthma COPD (chronic obstructive pulmonary disease) Social History (Updated 03/25/23 @ 19:55 by ADOLPH Kiser) Smoking Status: Never smoker Hx Alcohol Use: No Hx Substance Use: No Preferred Language: Malagasy Communication Ability: Effective Courier Delivery Driver Required: No Beliefs That Will Affect Care: None Current Living Situation: Family Feels Safe at Home: Yes Safety Concerns: Feels Safe At This Time Review of Systems Review of Systems: Neuro: (-) Falls, trauma, slurred speech HEENT: (-) ROYAL, dizziness, dysphagia, visual or auditory changes CV: (-) CP, palpitations, swelling Resp: (+) SOB GI: (-) appetite changes, N/V/D, bowel changes : (-) urinary changes Skin: (-) rashes Psych: (-) anxiety, depression Physical Exam Physical Exam: Neuro: AAOx4, PERRLA, no aphagia, memory changes, CNII-XII grossly intact HEENT: head normocephalic, moist mucus membranes CV: S1/S2, (-) M/G/R, (-) edema, cap refill < 3 seconds Resp: Lungs decreased with some expiratory wheezes GI: Abdomen S/NT/ND, Ax4 bowel sounds, (-) CVA tenderness Musculoskeletal: 5/5 B/L UE strength, 5/5 B/L LE strength. No gait disturbance Skin: (-) rashes , (-) erythema. Psych: euthymic mood Results & Data Results & Data Vital Signs (Past 12 Hours) Vital Signs Temp Pulse Resp BP Pulse Ox O2 Del Method O2 Flow Rate 03/25/23 17:20 88 20 125/73 95 Nasal Cannula 2 03/25/23 16:31 89 12 128/90 98 Nasal Cannula 2 03/25/23 16:10 82 12 147/94 H 98 Nasal Cannula 2 03/25/23 15:50 82 20 143/98 H 94 Nasal Cannula 2 03/25/23 15:48 84 03/25/23 15:46 83 20 94 Nasal Cannula 2 03/25/23 15:46 94 Nasal Cannula 2 03/25/23 14:05 Room Air 03/25/23 14:05 36.6 C 89 18 180/97 H 93 Room Air Laboratory Results Short CBC 03/25/23 Range/Units 15:45 WBC 9.80 (4.8-10.8) K/ul Hgb 14.0 (12.0-16.0) g/dl Hct 44.0 (37.0-47.0) % Plt Count 276 (130-400) K/uL BMP 03/25/23 15:45 Sodium 140 Potassium 4.2 Chloride 105 Carbon Dioxide 28 BUN 13 Creatinine 0.77 Glucose 127 H Calcium 9.9 Liver Function 03/25/23 Range/Units 15:45 Total Bilirubin 0.6 (0.2-1.0) mg/dl AST 65 H (13-39) U/L ALT 65 H (7-52) U/L Alkaline Phosphatase 104 (34-104) U/L Albumin 4.5 (3.4-5.0) gm/dl Diagnostic Findings Chest X-Ray 03/25/23 14:36 XR chest 1V not portable HISTORY: 57 years-old Female Chest pain, nonspecific COMPARISON: 07/01/2016 TECHNIQUE: PA view of the chest FINDINGS: Cardiomediastinal and hilar silhouettes are within normal limits. No pneumothorax, pleural effusion or airspace consolidation. Unchanged right hemidiaphragmatic elevation. Degenerative changes of the shoulders and spine. IMPRESSION: No acute process. ACT 112: Negative or not required by law. The above report was generated using voice recognition software. It may contain grammatical, syntax or spelling errors. Electronically signed by: Cristian Delacruz M.D. 03/25/2023 3:33 PM Code Status & VTE Plan Code Status Full code in the event of cardiac or respiratory arrest VTE Prophylaxis Plan VTE Prophylaxis will be ordered: Yes Supervising Physician Co-Signing Physician Notes Pt seen and examined by me, care coordinated w/ E. ADOLPH Hernandez, pls refer to her note above for further detail. Pt is a 57 yo F that presents with shortness of breath. Pt has had intermittent SOB for over a year. Today she was sitting doing her work and had a coughing fit and then could not breath very well. No orthopnea, in the ED, the breathing treatment did help. Feels that her lungs wont expand and that " she has something stuck in her throat". Reports productive and non-productive cough. When productive, thick connor sputum. She has recently had PFT's performed as an outpatient on 03/05/23: FEV1 1.42. Patient is scheduled to see [facility] on 07/13/23. Denies tobacco, alcohol or recreational drug use. No leukocytosis, BNP 61, Trop 7.1, Biofire negative, d dimer negative. Last ECHO 06/2021: EF 55-59%, LV wall motion normal without valve abnormalities. Reportedly wheezing in the ED. On my exam, pt is sitting up in bed in NAD, on 2L of suppl. o2, lungs are CTAB somewhat diminished but w/o any wheezing, rhonchi, crackles. She is awake alert oriented answering appropriately. Heart sounds regular. Abdomen soft nontender nondistended. No lower extremity edema. Skin is warm dry. CXR unremarkable, will obtain chest CT. Cont. w/ nebs, solumedrol, doxy. Try to wean off oxygen. Will discuss further w/ pulm. medicine. MD May
[2023-03-25 18:42] LABS: Magnesium 1.9 mg/dl (1.7-2.4); Phosphorus 3.8 mg/dl (2.5-4.9)
[2023-03-25] MEDS ORDERED: methylPREDNISolone 40 MG in SYRINGE 0 ML IV SCH (21:00)
[2023-03-25] MEDS ORDERED: ALBUTEROL 0.083% NEBU SOLN 3 ML VIAL NEB SCH (21:00)
[2023-03-25] MEDS ORDERED: INFLUENZA VIRUS QUADRIVALENT VACCINE (IIV4) 0.5 ML SYR IM ONE (21:13)
[2023-03-25] MEDS: DOXYCYCLINE HYCLATE 100 MG in DEXTROSE 5% MINI-B 100 ML IV SCH (21:29)
--- NOTE | 2023-03-25 22:50 | CT Scan Report ---
Exam(s): CT CHEST Without Contrast EXAM: CT Chest Without Intravenous Contrast CLINICAL HISTORY: Reason for exam: SOB. TECHNIQUE: Axial computed tomography images of the chest without intravenous contrast. CTDI is 28.14 mGy and DLP is 894.74 mGy-cm. Automated exposure control was utilized for the study. A dose lowering technique was utilized adhering to the principles of ALARA. COMPARISON: No relevant prior studies available. FINDINGS: Lungs: Unremarkable. No mass. No consolidation. Pleural space: Unremarkable. No pneumothorax. No significant effusion. Heart: Unremarkable. No cardiomegaly. No significant pericardial effusion. No significant coronary artery calcifications. Bones/joints: Unremarkable. No acute fracture. No dislocation. Soft tissues: Unremarkable. Vasculature: Unremarkable. No thoracic aortic aneurysm. Lymph nodes: Unremarkable. No enlarged lymph nodes. Liver: Hepatic steatosis. IMPRESSION: No acute findings in the chest. Electronically signed by: Ezio Shukla MD 03/25/23 22:49 PM
[2023-03-25] MEDS: methylPREDNISolone 40 MG in SYRINGE 0 ML IV SCH (23:29)
[2023-03-26] MEDS: ALBUTEROL 0.083% NEBU SOLN 3 ML VIAL NEB SCH ×2 (07:02→11:16)
[2023-03-26 07:19] LABS: Hematocrit (blood only) 41.4 % (37.0-47.0); Hemoglobin 13.5 g/dl (12.0-16.0); Mean Corpuscular Hemoglobin 29.4 pg (25.0-34.0); Mean Corpuscular Hgb Conc 32.6 g/dL (32.0-36.0); Mean Corpuscular Volume 90.2 fL (80.0-100.0); Mean Platelet Volume 10.9 fL (9.4-12.4); Platelet Count 261 K/uL (130-400); RDW Coefficient of Variation 13.7 % (11.5-14.5); RDW Standard Deviation 45.1 fL (36.4-46.3); Red Blood Count 4.59 M/uL (4.20-5.40); White Blood Count 11.77 K/ul (4.8-10.8)
[2023-03-26 07:51] LABS: Albumin Globulin Ratio 1.4 (0.9-2); Albumin Level 4.1 gm/dl (3.4-5.0); BUN Creatinine Ratio 22.7 (10-20); Bilirubin,Total 0.5 mg/dl (0.2-1.0); Calcium 9.6 mg/dl (8.6-10.3); Creatinine Clr Calc Pharmacy 119.1 ml/min; Est GFR (African American) 113.7 ml/min; Est GFR (Non-African American) 98.1 ml/min; Globulin 2.9 gm/dl (2.5-4.0); Potassium 4.9 mmol/L (3.5-5.1)
[2023-03-26] MEDS: DOXYCYCLINE HYCLATE 100 MG in DEXTROSE 5% MINI-B 100 ML IV SCH ×2 (08:44→20:30)
[2023-03-26] MEDS: methylPREDNISolone 40 MG in SYRINGE 0 ML IV SCH ×2 (08:45→13:19)
[2023-03-26] MEDS: PANTOprazole 40 MG TAB PO SCH (08:45)
[2023-03-26] MEDS: FLUTICASONE PROPIONATE NA SPR 16 GM BTL SCH (08:46)
[2023-03-26] MEDS: ENOXAPARIN INJ 40 MG/0.4 ML SYR SQ SCH (08:46)
[2023-03-26] MEDS ORDERED: ATENOLOL 50 MG TABLET PO SCH (09:00)
[2023-03-26] MEDS ORDERED: ALBUTEROL 0.083% NEBU SOLN 3 ML VIAL NEB PRN (11:08)
--- NOTE | 2023-03-26 12:27 | Electrocardiogram Report ---
Test Reason : Blood Pressure : / mmHG Vent. Rate : 080 BPM Atrial Rate : 080 BPM P-R Int : 126 ms QRS Dur : 072 ms QT Int : 368 ms P-R-T Axes : 040 035 052 degrees QTc Int : 424 ms Normal sinus rhythm Low voltage QRS Borderline ECG When compared with ECG of 01-JUL-2016 12:48, Premature atrial complexes are no longer Present Confirmed by Quincy Loving ([id number]) on 03/26/2023 12:26:38 PM Referred By: Confirmed By:Quincy Loving
--- NOTE | 2023-03-26 15:09 | Pulmonary Consultation ---
Date of Consultation March 26, 2023 Assessment & Plan (1) Shortness of breath: (2) GERD (gastroesophageal reflux disease): (3) Globus sensation: (4) Chronic cough: Plan 57-year-old female with a history of GERD and chronic cough with shortness of breath presenting for hospital due to progressively worsening shortness of breath. We will check ABG tomorrow to evaluate for chronic hypercapnia. At risk for OHS given elevated BMI of 47.6 and elevated serum bicarbonate levels. Transition off of IV Solu-Medrol to prednisone 40 mg daily. Not overtly bronchospastic on exam. Recommend GI referral to evaluate for esophageal reflux which can contribute to her cough. We will trial her on Breo Ellipta and she can be discharged on this as an outpatient. Follow-up echo results to evaluate for RV dysfunction. Consider outpatient polysomnography. We will discontinue lisinopril as this can potentiate her cough. Recommend outpatient follow-up with pulmonary medicine through [facility] as previously scheduled. Thanks for the consult. We will follow along with you. History of Present Illness Reason for Consultation: Asthma exacerbation Attending Physician: Jericho Haynes MD History of Present Illness 57-year-old female who reportedly has a history of GERD, asthma and hypertension who presented to the ER via EMS with shortness of breath. She reports that she has been having ongoing cough and shortness of breath with exertion. She notes that she had flu last winter and her symptoms persisted until August of this year. Subsequently, she developed another illness and persistent cough and shortness of breath. She has been on several different outpatient antibiotics with minimal improvement of symptoms. She notes that she was prescribed a rescue albuterol inhaler with some mild improvement of her symptoms. She does endorse some daytime sleepiness. She is unaware if she snores or has witnessed apneas as she sleeps alone in her room. She has 2 dogs at home. She is a lifelong non-smoker, but was around secondhand smoke as a child. She also reports a globus sensation in her throat. She apparently had PFTs as an outpatient on February 2023 which revealed an FEV1 of 1.42 L. I do not have the full PFTs to review, but this is reported on the admitting H&P by the hospitalist. She is set to be seen by pulmonology at [facility] in June 2023. Respiratory bio fire panel on admission was negative. Admitting CBC without any significant leukocytosis. Eosinophil count was 270. CT chest was personally reviewed did not reveal any acute or chronic findings. Interpretation from the radiologist is noted. Per report she had an echo in 2021 with an LVEF of 55 to 59%. Unclear pulmonary pressures were evaluated. She was admitted by the hospitalist service and started on methylprednisolone 40 mg 3 times daily and doxycycline. BNP was unremarkable on admission. Serum bicarbonate level is elevated at baseline and today are 29 mmol/L. Allergies Allergy/AdvReac Type Severity Reaction Status Date / Time No Known Allergies Allergy Verified 03/25/23 17:18 Home Medications Medication Instructions Recorded Confirmed Type albuterol sulfate 90 mcg/actuation 2 puff inhalation DIRECTED PRN 03/25/23 03/25/23 History aerosol inhaler (Ventolin HFA) Shortness Of Breath Or Wheezing atenolol 50 mg tablet 50 mg PO QAM 03/25/23 03/25/23 History diclofenac sodium 75 mg 75 mg PO BID 03/25/23 03/25/23 History tablet,delayed release fexofenadine 180 mg tablet 180 mg PO QAM 03/25/23 03/25/23 History fluticasone propionate 50 2 spray intranasal DAILY 03/25/23 03/25/23 History mcg/actuation nasal spray,suspension omeprazole 20 mg capsule,delayed 20 mg PO QAM 03/25/23 03/25/23 History release Patient History Medical History (Updated 03/26/23 @ 15:57 by Jorge Valentin MD) Chronic cough Globus sensation GERD (gastroesophageal reflux disease) HTN (hypertension) SOB (shortness of breath) Surgical History (Updated 03/25/23 @ 19:54 by ADOLPH Kiser) No pertinent past surgical history Family History (Updated 03/25/23 @ 19:54 by ADOLPH Kiser) Other Asthma COPD (chronic obstructive pulmonary disease) Social History (Updated 03/25/23 @ 19:55 by ADOLPH Kiser) Smoking Status: Never smoker Hx Alcohol Use: No Hx Substance Use: No Preferred Language: Divehi Communication Ability: Effective Hospitality Job Titles Required: No Beliefs That Will Affect Care: None Current Living Situation: Family Feels Safe at Home: Yes Safety Concerns: Feels Safe At This Time Assistive Devices: None Review of Systems Review of Systems: All systems reviewed & are unremarkable except as noted in HPI & below Physical Exam Physical Exam: Constitutional: Patient appears to be of their stated age. Patient is in no apparent distress. Patient is well-developed. Obese. Eyes: Pupils are equal round and reactive to light. Conjunctivae are normal. Anicteric sclera. Ears nose, mouth and throat: Mallampati class 1. Normal posterior oropharynx. Uvula is midline. Neck: Trachea is midline. Visual inspection is normal. Respiratory: Clear to auscultation bilaterally. No use of accessory muscles. No significant clubbing noted. Cardiovascular: Regular rate and rhythm. No murmurs. No edema. Gastrointestinal: Normal bowel sounds, soft, nontender and nondistended. No hepatosplenomegaly noted. Musculoskeletal: No cyanosis. Patient is able to move all extremities. Strength is 5 out of 5 in the upper and lower extremities. Skin: No rashes, warm dry and intact. Neurologic: No obvious focal neurological deficits seen. Psychiatric: Alert and oriented x3 with a euthymic affect. Results & Data Results & Data Vital Signs (Past 12 Hours) Vital Signs Temp Pulse Pulse Resp BP Pulse Ox O2 Del Method 03/26/23 11:19 36.3 C L 77 18 159/90 H 96 Nasal Cannula 03/26/23 07:53 81 03/26/23 07:44 36.8 C 112 H 18 179/83 H 96 Nasal Cannula 03/26/23 07:26 Nasal Cannula 03/26/23 07:04 100 H 18 96 Nasal Cannula 03/26/23 04:23 36.4 C L 81 18 155/82 H 95 Nasal Cannula O2 Flow Rate 03/26/23 11:19 2.0 03/26/23 07:53 03/26/23 07:44 2.0 03/26/23 07:26 2 03/26/23 07:04 3 03/26/23 04:23 3 PG Care Time/CCT Total # of Minutes Spent Total Time Spent with Patient: Total time spent is greater than 50% in coordination of care (as documented) at patient's floor/unit and/or counseling patient: Coding Level of Care Code 40158 INT INP/OBS CARE 3/75MIN Diagnoses Shortness of breath R06.02 GERD (gastroesophageal reflux disease) K21.9 Globus sensation R09.A2 Chronic cough R05.3
--- NOTE | 2023-03-26 15:26 | Hospitalist Progress Note ---
Date of Service March 26, 2023 Assessment & Plan (1) SOB (shortness of breath): (2) HTN (hypertension): (3) GERD (gastroesophageal reflux disease): Plan Ms. Santillan is a 57 year old that presents to the ED via EMS with SOB. pt has had intermittent SOB for over a year. She reports that she was sitting doing her work and had a coughing fit and then could not breath very well. No orthopnea, in the ED, the breathing treatment did help. Feels that her lungs wont expand and that " she has something stuck in her throat". Reports productive and non- productive cough. When productive, thick connor sputum. She has recently had PFT's performed as an outpatient on 03/05/23: FEV1 1.42. Patient is scheduled to see [facility] on 07/13/23. Denies tobacco, alcohol or recreational drug use. No leukocytosis, BNP 61, Trop 7.1, Biofire negative, d dimer negative. Last ECHO 06/2021: EF 55-59%, LV wall motion normal without valve abnormalities. Pt denies fevers, chills, ROYAL, dizziness, chest pain, abdominal pain or tenderness, recent falls or trauma. Ultimately, patient with longstanding shortness of breath that is affecting her quality of life. For now, obtain sputum culture, continue nebs, steroids, start IV Doxy for empiric coverage of sputum, and obtain pulmonary consult. Shortness of breath: Likely secondary to reactive airway disease/asthma acute uncontrolled Productive cough with thick connor sputum intermittently Biofire negative DDimer negative and BNP normal CXR negative for acute pulmonary disease Relief with neblizer in ED; continue duonebs QID + Q2 PRN Methylprednisone 40 mg IV given in ED; continue TID and adjust tomorrow Empirically treat with Doxy IV; adjust based on culture results Chest CT without contrast -unremarkable Obtain repeat ECHO-pending Consult pulmonary medicine-awaited HTN: Chronic stable Takes Atenolol; continue Will change atenolol to metoprolol 25 mg p.o. twice daily and then start with XL 50 mg from tomorrow We will add lisinopril 10 mg GERD: Chronic stable Takes Omeprazole; continue Disposition: PCP: Dr. Beaver Code Status: Full code VTE Prophylaxis: Lovenox SQ Admission and Anticipated Discharge Date Admission Date: March 25, 2023 Subjective 03/26/2023 The patient was seen and examined in telemetry unit She was admitted with increasing shortness of breath and cough Has been feeling much better since admission Denies any chest pain, palpitation or shortness of breath at rest Still requiring 2 L to maintain saturation Review of Systems Review of Systems: All systems reviewed and are unremarkable except as noted below Physical Exam Physical Exam: Lying in bed comfortably Constitutional: well developed, well nourished, + ill appearing and + morbidly obese Eyes: PERRL, conjunctivae normal, anicteric sclerae ENMT: external ear and nose normal, oropharynx normal Neck: trachea midline, no thyromegaly Respiratory: no respiratory distress Auscultation: + diminished lung sounds and + wheezes (Occasional wheezing at the bases) Cardiovascular: Rate/Rhythm: regular rate and regular rhythm; not tachycardic Heart Sounds: normal S1 and normal S2; no murmur Extremities: + edema (Trace edema bilaterally) Gastrointestinal (Abdomen): Inspection/Auscultation: normal bowel sounds; abdomen not distended Percussion/Palpation: abdomen soft; abdomen nontender Musculoskeletal: No acute arthritis involving any joint Neurologic: normal touch/pain/proprioception and moves all extremities; no focal motor deficits Psychiatric: A+Ox3, euthymic affect Lymphatic: no cervical or axillary lymphadenopathy Results & Data Results & Data Vital Signs (Past 12 Hours) Vital Signs Temp Pulse Pulse Resp BP Pulse Ox O2 Del Method 03/26/23 11:19 36.3 C L 77 18 159/90 H 96 Nasal Cannula 03/26/23 07:53 81 03/26/23 07:44 36.8 C 112 H 18 179/83 H 96 Nasal Cannula 03/26/23 07:26 Nasal Cannula 03/26/23 07:04 100 H 18 96 Nasal Cannula 03/26/23 04:23 36.4 C L 81 18 155/82 H 95 Nasal Cannula O2 Flow Rate 03/26/23 11:19 2.0 03/26/23 07:53 03/26/23 07:44 2.0 03/26/23 07:26 2 03/26/23 07:04 3 03/26/23 04:23 3 Laboratory Results Short CBC 03/25/23 03/26/23 Range/Units 15:45 06:56 WBC 9.80 11.77 H (4.8-10.8) K/ul Hgb 14.0 13.5 (12.0-16.0) g/dl Hct 44.0 41.4 (37.0-47.0) % Plt Count 276 261 (130-400) K/uL BMP 03/25/23 03/26/23 15:45 06:56 Sodium 140 139 Potassium 4.2 4.9 Chloride 105 105 Carbon Dioxide 28 29 BUN 13 15 Creatinine 0.77 0.66 Glucose 127 H 158 H Calcium 9.9 9.6 Liver Function 03/25/23 03/26/23 Range/Units 15:45 06:56 Total Bilirubin 0.6 0.5 (0.2-1.0) mg/dl AST 65 H 53 H (13-39) U/L ALT 65 H 61 H (7-52) U/L Alkaline Phosphatase 104 87 (34-104) U/L Albumin 4.5 4.1 (3.4-5.0) gm/dl Medications Administered Current Inpatient Medications Acetaminophen (Acetaminophen 325 Mg Tab) 650 mg PO Q4H PRN PRN Reason: Pain or Fever Stop: 04/24/23 17:59 Al Hydrox/Mg Hydrox/Simethicone (Aluminum/Magnesium Susp 30 Ml Udc) 15 ml PO Q4H PRN PRN Reason: Dyspepsia Stop: 04/24/23 17:59 Albuterol (Albuterol 0.083% Nebu Soln 3 Ml Vial) 2.5 mg NEB QIDR PRN; Protocol PRN Reason: Shortness Of Breath Or Wheezing Stop: 04/25/23 06:59 Atenolol (Atenolol 50 Mg Tablet) 50 mg PO QAM [facility] Stop: 04/25/23 08:59 Last Admin: 03/26/23 08:45 Dose: 50 mg Enoxaparin Sodium (Enoxaparin Inj 40 Mg/0.4 Ml Syr) 40 mg SQ QAM [facility] Stop: 04/25/23 08:59 Last Admin: 03/26/23 08:46 Dose: 40 mg Fluticasone Propionate (Fluticasone Propionate Na Spr 16 Gm Btl) 2 sprays NA DAILY [facility] Stop: 04/25/23 08:59 Last Admin: 03/26/23 08:46 Dose: 2 sprays Doxycycline Hyclate 100 mg/ (Dextrose) 100 mls @ 50 mls/hr IV Q12H [facility] Stop: 04/01/23 20:59 Last Infusion: 03/26/23 10:49 Dose: Infused Methylprednisolone 40 mg/ (Syringe) 0.64 mls @ 1.5 mls/min IV TID [facility] Stop: 04/24/23 21:59 Last Admin: 03/26/23 13:19 Dose: 1.5 mls/min Magnesium Hydroxide (Magnesium Hydroxide Susp 30 Ml Udc) 30 ml PO Q12H PRN PRN Reason: Constipation Stop: 04/24/23 17:59 Ondansetron HCl (Ondansetron Inj 2 Mg/Ml 2 Ml Vial) 4 mg IV Q6H PRN PRN Reason: Nausea Stop: 04/24/23 17:59 Pantoprazole Sodium (Pantoprazole 40 Mg Tab) 40 mg PO QAM [facility] Stop: 04/25/23 08:59 Last Admin: 03/26/23 08:45 Dose: 40 mg Polyethylene Glycol (Polyethylene (Miralax) 17 Gm Pack) 17 gm PO DAILY PRN PRN Reason: Constipation Stop: 04/24/23 17:59
[2023-03-26] MEDS ORDERED: lisinopril 10 MG TAB PO SCH (15:30)
[2023-03-26] MEDS: FLUTICASONE/VILANTEROL 100/25MCG 14 PUFFS/INHALER INH SCH (17:56)
[2023-03-26] MEDS: METOPROLOL TARTRATE 25 MG TAB PO SCH (20:30)
[2023-03-27 07:13] LABS: Base Excess ABG 4.8 mEq/L (-9-1.8); HCO3 ABG 30 mmol/L (19-24); Oxygen Saturation ABG 99.1 % (90-95); PCO2 ABG 48 mmHg (35-46); PO2 ABG 98 mmHg (80-95); pH ABG 7.41 (7.35-7.45)
[2023-03-27 07:17] LABS: Allen Test Pos (Pos)
[2023-03-27] MEDS: FLUTICASONE PROPIONATE NA SPR 16 GM BTL SCH (08:28)
[2023-03-27] MEDS: ENOXAPARIN INJ 40 MG/0.4 ML SYR SQ SCH (08:28)
[2023-03-27] MEDS: DOXYCYCLINE HYCLATE 100 MG in DEXTROSE 5% MINI-B 100 ML IV SCH (08:28)
[2023-03-27] MEDS: METOPROLOL TARTRATE 25 MG TAB PO SCH (08:28)
[2023-03-27] MEDS: PANTOprazole 40 MG TAB PO SCH (08:28)
[2023-03-27] MEDS: FLUTICASONE/VILANTEROL 100/25MCG 14 PUFFS/INHALER INH SCH (08:29)
[2023-03-27] MEDS ORDERED: predniSONE 20 MG TAB PO SCH (09:00)
--- NOTE | 2023-03-27 10:02 | Pulmonology Progress Note ---
Date of Service March 27, 2023 Assessment & Plan (1) Shortness of breath: (2) GERD (gastroesophageal reflux disease): (3) Globus sensation: (4) Chronic cough: Plan 57-year-old female with a history of GERD and chronic cough with shortness of breath presenting for hospital due to progressively worsening shortness of breath. ABG with slight hypercapnia. At risk for OHS given elevated BMI of 47.6 and elevated CO2 level. Weight loss encouraged. Transition off of IV Solu-Medrol to prednisone 40 mg daily. Not overtly bronchospastic on exam. Recommend GI referral to evaluate for esophageal reflux which can contribute to her cough. We will trial her on Breo Ellipta and she can be discharged on this as an outpatient. Follow-up echo results to evaluate for RV dysfunction. We will need outpatient polysomnography and sleep medicine follow-up. Discontinued lisinopril as this can potentiate her cough. Recommend outpatient [facility] as [facility]. Patient may need oxygen upon discharge. Please ambulate on room air to check to see if she qualifies for supplemental oxygen. No further recommendations at this time. Thank you for the consult. Please call with questions. Admission and Anticipated Discharge Date Admission Date: March 25, 2023 Subjective Patient seen and examined. Denies any significant shortness of breath at rest. Has minimally and ambulated this morning. Notes that cough has become more productive. Denies any fevers, chills or night sweats. Tolerating her ICS/LABA inhaler well yesterday. Review of Systems Review of Systems: All systems reviewed & are unremarkable except as noted in HPI & below Physical Exam Physical Exam: Constitutional: Patient appears to be of their stated age. Patient is in no apparent distress. Patient is well-developed. Obese. Eyes: Pupils are equal round and reactive to light. Conjunctivae are normal. Anicteric sclera. Ears nose, mouth and throat: Mallampati class 1. Normal posterior oropharynx. Uvula is midline. Neck: Trachea is midline. Visual inspection is normal. Respiratory: Clear to auscultation bilaterally. No use of accessory muscles. No significant clubbing noted. Cardiovascular: Regular rate and rhythm. No murmurs. No edema. Gastrointestinal: Normal bowel sounds, soft, nontender and nondistended. No hepatosplenomegaly noted. Musculoskeletal: No cyanosis. Patient is able to move all extremities. Strength is 5 out of 5 in the upper and lower extremities. Skin: No rashes, warm dry and intact. Neurologic: No obvious focal neurological deficits seen. Psychiatric: Alert and oriented x3 with a euthymic affect. Results & Data Results & Data Vital Signs (Past 12 Hours) Vital Signs Temp Pulse Pulse Pulse Resp BP Pulse Ox 03/27/23 07:45 72 03/27/23 07:45 03/27/23 07:30 36.6 C 72 16 132/81 97 03/27/23 03:52 36.6 C 79 10 L 146/83 H 97 03/26/23 23:55 36.6 C 74 12 140/77 96 03/26/23 22:00 80 O2 Del Method O2 Flow Rate 03/27/23 07:45 03/27/23 07:45 Nasal Cannula 2 03/27/23 07:30 Nasal Cannula 2 03/27/23 03:52 Nasal Cannula 2.5 03/26/23 23:55 Nasal Cannula 2.0 03/26/23 22:00 PG Care Time/CCT Total # of Minutes Spent Total Time Spent with Patient: Total time spent is greater than 50% in coordination of care (as documented) at patient's floor/unit and/or counseling patient: Coding Level of Care Code 93194 SUB INP/OBS CARE 1/25MIN Diagnoses Shortness of breath R06.02 GERD (gastroesophageal reflux disease) K21.9 Globus sensation R09.A2 Chronic cough R05.3
--- NOTE | 2023-03-27 12:01 | Hospitalist Progress Note ---
Date of Service March 27, 2023 Assessment & Plan (1) SOB (shortness of breath): (2) HTN (hypertension): (3) GERD (gastroesophageal reflux disease): Plan Ms. Santillan is a 57 year old that presents to the ED via EMS with SOB. pt has had intermittent SOB for over a year. She reports that she was sitting doing her work and had a coughing fit and then could not breath very well. No orthopnea, in the ED, the breathing treatment did help. Feels that her lungs wont expand and that " she has something stuck in her throat". Reports productive and non- productive cough. When productive, thick connor sputum. She has recently had PFT's performed as an outpatient on 03/05/23: FEV1 1.42. Patient is scheduled to see [facility] on 07/13/23. Denies tobacco, alcohol or recreational drug use. No leukocytosis, BNP 61, Trop 7.1, Biofire negative, d dimer negative. Last ECHO 06/2021: EF 55-59%, LV wall motion normal without valve abnormalities. Pt denies fevers, chills, ROYAL, dizziness, chest pain, abdominal pain or tenderness, recent falls or trauma. Ultimately, patient with longstanding shortness of breath that is affecting her quality of life. For now, obtain sputum culture, continue nebs, steroids, start IV Doxy for empiric coverage of sputum, and obtain pulmonary consult. Shortness of breath: Likely secondary to reactive airway disease/asthma acute uncontrolled Productive cough with thick connor sputum intermittently Biofire negative DDimer negative and BNP normal CXR negative for acute pulmonary disease Relief with neblizer in ED; continue duonebs QID + Q2 PRN Methylprednisone 40 mg IV given in ED; continue TID and adjust tomorrow Empirically treat with Doxy IV; adjust based on culture results Chest CT without contrast -unremarkable Obtain repeat ECHO-did not show any significant abnormality, no pulmonary hypertension and no RV strain She will be discharged home this afternoon Will a follow-up appointment with panelboard assembler and also sleep study as an outpatient HTN: Chronic stable Takes Atenolol; continue Will change atenolol to metoprolol 25 mg p.o. twice daily and then start with XL 50 mg from tomorrow We will add lisinopril 10 mg Lisinopril has been discontinued and continue with metoprolol GERD: Chronic stable Takes Omeprazole; continue Disposition: PCP: Dr. Beaver Code Status: Full code VTE Prophylaxis: Lovenox SQ Admission and Anticipated Discharge Date Admission Date: March 25, 2023 Subjective 03/26/2023 The patient was seen and examined in telemetry unit She was admitted with increasing shortness of breath and cough Has been feeling much better since admission Denies any chest pain, palpitation or shortness of breath at rest Still requiring 2 L to maintain saturation 03/27/2023 The patient was seen and examined in telemetry unit She has been feeling much better today and denies any cough and no shortness of breath She has not required any oxygen at rest She wants to go home and she will have a 2 step O2 saturation test prior to discharge Review of Systems Review of Systems: All systems reviewed and are unremarkable except as noted below Physical Exam Physical Exam: Lying in bed comfortably Constitutional: well developed, well nourished, + ill appearing and + morbidly obese Eyes: PERRL, conjunctivae normal, anicteric sclerae ENMT: external ear and nose normal, oropharynx normal Neck: trachea midline, no thyromegaly Respiratory: no respiratory distress Auscultation: + diminished lung sounds and + wheezes (Occasional wheezing at the bases) Cardiovascular: Rate/Rhythm: regular rate and regular rhythm; not tachycardic Heart Sounds: normal S1 and normal S2; no murmur Extremities: + edema (Trace edema bilaterally) Gastrointestinal (Abdomen): Inspection/Auscultation: normal bowel sounds; abdomen not distended Percussion/Palpation: abdomen soft; abdomen nontender Neurologic: normal touch/pain/proprioception and moves all extremities; no focal motor deficits Psychiatric: A+Ox3, euthymic affect Lymphatic: no cervical or axillary lymphadenopathy Results & Data Results & Data Vital Signs (Past 12 Hours) Vital Signs Temp Pulse Pulse Pulse Resp BP Pulse Ox 03/27/23 10:29 36.5 C 77 16 149/84 H 97 03/27/23 07:45 72 03/27/23 07:45 03/27/23 07:30 36.6 C 72 16 132/81 97 03/27/23 03:52 36.6 C 79 10 L 146/83 H 97 O2 Del Method O2 Flow Rate 03/27/23 10:29 Nasal Cannula 1 03/27/23 07:45 03/27/23 07:45 Nasal Cannula 2 03/27/23 07:30 Nasal Cannula 2 03/27/23 03:52 Nasal Cannula 2.5 Medications Administered Current Inpatient Medications Acetaminophen (Acetaminophen 325 Mg Tab) 650 mg PO Q4H PRN PRN Reason: Pain or Fever Stop: 04/24/23 17:59 Al Hydrox/Mg Hydrox/Simethicone (Aluminum/Magnesium Susp 30 Ml Udc) 15 ml PO Q4H PRN PRN Reason: Dyspepsia Stop: 04/24/23 17:59 Albuterol (Albuterol 0.083% Nebu Soln 3 Ml Vial) 2.5 mg NEB QIDR PRN; Protocol PRN Reason: Shortness Of Breath Or Wheezing Stop: 04/25/23 06:59 Enoxaparin Sodium (Enoxaparin Inj 40 Mg/0.4 Ml Syr) 40 mg SQ QAM [facility] Stop: 04/25/23 08:59 Last Admin: 03/27/23 08:28 Dose: 40 mg Fluticasone Propionate (Fluticasone Propionate Na Spr 16 Gm Btl) 2 sprays NA DAILY [facility] Stop: 04/25/23 08:59 Last Admin: 03/27/23 08:28 Dose: 2 sprays Fluticasone/Vilanterol (Fluticasone/Vilanterol 100/25mcg 14 Puffs/Inhaler) 1 puffs INH DAILY [facility] Stop: 04/25/23 15:59 Last Admin: 03/27/23 08:29 Dose: 1 puffs Doxycycline Hyclate 100 mg/ (Dextrose) 100 mls @ 50 mls/hr IV Q12H [facility] Stop: 04/01/23 20:59 Last Infusion: 03/27/23 10:37 Dose: Infused Magnesium Hydroxide (Magnesium Hydroxide Susp 30 Ml Udc) 30 ml PO Q12H PRN PRN Reason: Constipation Stop: 04/24/23 17:59 Metoprolol Tartrate (Metoprolol Tartrate 25 Mg Tab) 25 mg PO BID [facility] Stop: 04/25/23 20:59 Last Admin: 03/27/23 08:28 Dose: 25 mg Ondansetron HCl (Ondansetron Inj 2 Mg/Ml 2 Ml Vial) 4 mg IV Q6H PRN PRN Reason: Nausea Stop: 04/24/23 17:59 Pantoprazole Sodium (Pantoprazole 40 Mg Tab) 40 mg PO QAM [facility] Stop: 04/25/23 08:59 Last Admin: 03/27/23 08:28 Dose: 40 mg Polyethylene Glycol (Polyethylene (Miralax) 17 Gm Pack) 17 gm PO DAILY PRN PRN Reason: Constipation Stop: 04/24/23 17:59 Prednisone (Prednisone 20 Mg Tab) 40 mg PO DAILY [facility] Stop: 04/26/23 08:59 Last Admin: 03/27/23 08:28 Dose: 40 mg
--- NOTE | 2023-03-27 17:02 | Discharge Summary ---
Date of Service March 27, 2023 Admission HPI Per Admitting Provider Ms. Santillan is a 57 year old that presents to the ED via EMS with SOB. pt has had intermittent SOB for over a year. She reports that she was sitting doing her work and had a coughing fit and then could not breath very well. No orthopnea, in the ED, the breathing treatment did help. Feels that her lungs wont expand and that " she has something stuck in her throat". Reports productive and non- productive cough. When productive, thick connor sputum. She has recently had PFT's performed as an outpatient on 03/05/23: FEV1 1.42. Patient is scheduled to see [facility] on 07/13/23. Denies tobacco, alcohol or recreational drug use. No leukocytosis, BNP 61, Trop 7.1, Biofire negative, d dimer negative. Last ECHO 06/2021: EF 55-59%, LV wall motion normal without valve abnormalities. Pt denies fevers, chills, ROYAL, dizziness, chest pain, abdominal pain or tenderness, recent falls or trauma. Ultimately, patient with longstanding shortness of breath that is affecting her quality of life. For now, obtain sputum culture, continue nebs, steroids, start IV Doxy for empiric coverage of sputum, and obtain pulmonary consult. Patient will be admitted for further evaluation and management. Please see A/P for further details. Admission Exam Per Admitting Provider Physical Exam: Neuro: AAOx4, PERRLA, no aphagia, memory changes, CNII-XII grossly intact HEENT: head normocephalic, moist mucus membranes CV: S1/S2, (-) M/G/R, (-) edema, cap refill < 3 seconds Resp: Lungs decreased with some expiratory wheezes GI: Abdomen S/NT/ND, Ax4 bowel sounds, (-) CVA tenderness Musculoskeletal: 5/5 B/L UE strength, 5/5 B/L LE strength. No gait disturbance Skin: (-) rashes , (-) erythema. Psych: euthymic mood Principal Diagnosis Acute on chronic shortness of breath, could have reactive airway disease/reflux, rule out sleep apnea as an outpatient, hypertension Discharge Exam Lying in bed comfortably Constitutional well developed, well nourished, + ill appearing and + morbidly obese Eyes PERRL, conjunctivae normal, anicteric sclerae ENMT external ear and nose normal, oropharynx normal Neck trachea midline, no thyromegaly Respiratory no respiratory distress Auscultation: + diminished lung sounds and + wheezes (Occasional wheezing at the bases) Cardiovascular Rate/Rhythm: regular rate and regular rhythm; not tachycardic Heart Sounds: normal S1 and normal S2; no murmur Extremities: + edema (Trace edema bilaterally) Gastrointestinal (Abdomen) Inspection/Auscultation: normal bowel sounds; abdomen not distended Percussion/Palpation: abdomen soft; abdomen nontender Neurologic normal touch/pain/proprioception and moves all extremities; no focal motor deficits Psychiatric A+Ox3, euthymic affect Lymphatic no cervical or axillary lymphadenopathy Discharge Data Allergies Allergy/AdvReac Type Severity Reaction Status Date / Time No Known Allergies Allergy Verified 03/25/23 17:18 Consultations 03/25/23 17:27 ED Decision to Admit Stat 03/26/23 08:00 Consult Pulmonology Routine Ordered Studies 03/25/23 19:37 CT chest diagnostic wo con Routine Hospital Course (1) SOB (shortness of breath): (2) HTN (hypertension): (3) GERD (gastroesophageal reflux disease): Plan Ms. Santillan is a 57 year old that presents to the ED via EMS with SOB. pt has had intermittent SOB for over a year. She reports that she was sitting doing her work and had a coughing fit and then could not breath very well. No orthopnea, in the ED, the breathing treatment did help. Feels that her lungs wont expand and that " she has something stuck in her throat". Reports productive and non- productive cough. When productive, thick connor sputum. She has recently had PFT's performed as an outpatient on 03/05/23: FEV1 1.42. Patient is scheduled to see [facility] on 07/13/23. Denies tobacco, alcohol or recreational drug use. No leukocytosis, BNP 61, Trop 7.1, Biofire negative, d dimer negative. Last ECHO 06/2021: EF 55-59%, LV wall motion normal without valve abnormalities. Pt denies fevers, chills, ROYAL, dizziness, chest pain, abdominal pain or tenderness, recent falls or trauma. Ultimately, patient with longstanding shortness of breath that is affecting her quality of life. For now, obtain sputum culture, continue nebs, steroids, start IV Doxy for empiric coverage of sputum, and obtain pulmonary consult. Shortness of breath: Likely secondary to reactive airway disease/asthma acute uncontrolled Productive cough with thick connor sputum intermittently Biofire negative DDimer negative and BNP normal CXR negative for acute pulmonary disease Relief with neblizer in ED; continue duonebs QID + Q2 PRN Methylprednisone 40 mg IV given in ED; continue TID and adjust tomorrow Empirically treat with Doxy IV; adjust based on culture results Chest CT without contrast -unremarkable Obtain repeat ECHO-did not show any significant abnormality, no pulmonary hypertension and no RV strain She will be discharged home this afternoon Will a follow-up appointment with [facility] and also sleep study as an outpatient HTN: Chronic stable Takes Atenolol; continue Will change atenolol to metoprolol 25 mg p.o. twice daily and then start with XL 50 mg from tomorrow We will add lisinopril 10 mg Lisinopril has been discontinued and continue with metoprolol GERD: Chronic stable Takes Omeprazole; continue Disposition: PCP: Dr. Beaver Code Status: Full code VTE Prophylaxis: Lovenox SQ Total Time Total Time Spent Total Time Spent (In Minutes): 35 minutes Discharge Plan Discharge Items Patient Disposition: Home - Self-Care Reason For Visit: SOB Discharge Diagnosis: Acute on chronic shortness of breath, could have reactive airway disease/reflux, rule out sleep apnea as an outpatient, hypertension Activity: Resume your previous activity Non-emergency contact: Primary Care Provider Call non-emergency contact if: you have any medication questions and your symptoms worsen Follow-up/Referrals: Dave Beaver MD [Primary Care Provider] - (Date & Time 04/01/2023 1:40 PM Provider Evie Rendon DO Department Family Practice [facility] ) Iván Alcocer DO [Outside Practitioners] - (Date & Time 05/22/2023 10:00 AM Provider Iván Alcocer DO Department Pulmonary Medicine, [facility] ) Diet: Heart Healthy Addtl Attending Provider Instructions: Please take precautions to avoid fall Please try to avoid allergens as advised Take your medications as advised Please have follow-up appointments with your healthcare providers Pending Studies at Discharge: No Stand-Alone Forms: My [facility], Smoking Cessation Medications and DC Order Prescriptions: New prednisone 20 mg Tablet 40 mg PO DAILY Qty: 8 0RF fluticasone furoate-vilanterol [Breo Ellipta] 100-25 mcg/dose Blister With Device 1 inh inhalation DAILY Qty: 1 0RF metoprolol succinate [Toprol XL] 50 mg tablet extended release 24 hr 50 mg PO BID Qty: 60 0RF Continued fexofenadine 180 mg Tablet 180 mg PO QAM omeprazole 20 mg capsule,delayed release(DR/EC) 20 mg PO QAM diclofenac sodium 75 mg Tablet,Delayed Release (Dr/Ec) 75 mg PO BID albuterol sulfate [Ventolin HFA] 90 mcg/actuation HFA aerosol inhaler 2 puff INHALATION DIRECTED PRN (Reason: Shortness Of Breath Or Wheezing) fluticasone propionate 50 mcg/actuation [place],Suspension 2 spray INTRANASAL DAILY Rx Instructions: administer into each nostril Discontinued atenolol 50 mg tablet 50 mg PO QAM Discharge Orders: Discharge Order (Routine); Ordered 03/27/23 Ordered By: Jericho Haynes Admission Data Admit Date/Time: 03/25/23 18:01 Attending Provider: Jericho Haynes Admit Provider: Bradford Olvera Primary Care Provider: Dave Beaver Other Providers: Bradford Olvera; Jorge Valentin Other Interventions: Discharge Summary Assessment (RN) Last Done: 03/27/23 13:51
--- NOTE | 2023-03-29 09:03 | Coding Query ---
CODING CLARIFICATION Elevated BMI of 47.6 and weight loss encouraged is documented within the record. Please clarify below any corresponding diagnoses with this: ( ) Obesity ( ) Morbid Obesity ( ) Overweight ( +) Other, please clarify: Obesity Class iii but the patient was not managed for that during this admission. Thank you for your assistance, Ginny Mitchell - [employer] MELECIO
--- OUTSIDE RECORDS SUMMARY | 2023-03-29 21:47 | External Medical Summary | Summary of Care ---
Author Name Unknown Organization [facility] Address [address] [place] [address] Phone [phone] Care Team Providers Care It Infrastructure Engineer Name Role Phone Jeniffer Zacarias MD Primary Care Provider [phone] Reason for Visit * Reason Onset Date Comments Medication Refill 02/04/2023 Encounter Details Date Type Department Care Team Description 02/04/2023 Refill Family Practice [facility] [address] [place] [id number] Jeniffer Zacarias MD [address] [place], [place] [id number] Subacute cough Allergies No known active allergiesdocumented as of this encounter (statuses as of 02/04/2023) Medications Medication Sig Dispensed Refills Start Date End Date Status MULTIVITAMINS PO CAPS 1 tablet daily 0 Active VITAMIN C 500 MG PO CAPS 1 tablet daily 0 Active CALCIUM 1000 + D 1000-800 MG-UNIT PO TABS 1 tablet daily 0 Active Spacer/Aero-Holdi ng Chambers DeviceIndications :Subacute cough Use with inhaler. 1 Each 0 06/23/2022 Active Omeprazole 20 MG Oral Capsule Delayed Release (PriLOSEC)Indicat ions:Gastroesopha geal reflux disease with esophagitis TAKE 1 CAPSULE DAILY 1 HOUR BEFORE THE FIRST MEAL OF THE DAY 90 Capsule 1 07/26/2022 Active Diclofenac Sodium 75 MG Oral Tablet Delayed Release (Voltaren)Indicat ions:Left knee pain, unspecified chronicity,Chroni c bilateral low back pain without sciatica,Hip pain, left TAKE 1 TABLET BY MOUTH TWICE DAILY WITH MORNING AND EVENING MEALS GENERIC EQUIVALENT FOR VOLTAREN 180 Tablet 1 07/26/2022 Active guaiFENesin ER 600 MG Oral Tablet Extended Release 12 Hour (Mucinex)Indicati ons:Cough present for greater than 3 weeks Take 1 Tablet by mouth 2 times a day as needed for Congestion. Take with plenty of water. Do not cut, crush or chew 40 Tablet 2 08/02/2022 Active Atenolol 50 MG Oral Tablet (Tenormin)Indicat ions:HTN, goal below 130/80 TAKE 1 TABLET IN THE MORNING 90 Tablet 1 10/28/2022 Active Doxycycline Hyclate 100 MG Oral CapsuleIndication s:Cough present for greater than 3 weeks Take 1 Capsule by mouth in the morning and 1 Capsule before bedtime. Do all this for 10 days. Until gone.. 20 Capsule 0 01/26/2023 3 Active guaiFENesin-Codei ne 100-10 MG/5ML Oral Syrup (Robitussin AC)Indications:Co ugh present for greater than 3 weeks Take 5 mL by mouth every 4 hours as needed for Cough. 120 mL 0 01/26/2023 Active predniSONE 20 MG Oral Tablet (Deltasone) Take 3 tabs for 3 days, 2 tabs for 3 days, 1 tab for 3 days, 1/2 tab for 3 days 20 Tablet 0 02/03/2023 Active Ventolin HFA 108 (90 Base) MCG/ACT Inhalation Aerosol SolutionIndicatio ns:Subacute cough Inhale 2 Puffs by mouth every 4 hours as needed for Wheezing. 18 g 3 02/04/2023 Active Ventolin HFA 108 (90 Base) MCG/ACT Inhalation Aerosol SolutionIndicatio ns:Subacute cough Inhale 2 Puffs by mouth every 4 hours as needed for Wheezing. 18 g 3 10/28/2022 3 Discontinue d(Refill) Hospital, Clinic, or Other Facility Administered Medication Ordered Dose Route Frequency Start Date End Date Status Albuterol Sulfate (Proventil) (2.5 MG/3ML) 0.083% inhalation solution 2.5 mgIndications:Cough present for greater than 3 weeks 2.5 mg NEBULIZER ONCE PRN 01/26/2023 01/26/2024 Active documented as of this encounter (statuses as of 02/04/2023) Active Problems Problem Noted Date Gastroesophageal reflux disease without esophagitis 02/25/2021 Morbid obesity 02/24/2021 HTN, goal below 130/80 06/02/2017 Fatty liver disease, nonalcoholic documented as of this encounter (statuses as of 02/04/2023) Resolved Problems Problem Noted Date Resolved Date Prediabetes 02/26/2021 07/25/2022 Osteoarthritis of left hip 05/19/201902/24 Hip pain, left 05/19/2019 02/24/2021 Ambulatory dysfunction 05/19/2019 Body mass index (BMI) of 40.0 to 44.9 in adult 1 02/24/2021 Overview: Per Obesity protocol #1 Rotator cuff (capsule) sprain and strain 014 01/09/2015 Reactive arthritis 02/10/2013 06/06/2019 documented as of this encounter (statuses as of 02/04/2023) Immunizations Name Administration Dates Next Due COVID-19 mRNA, LNP-s, No Pre serve, 2-Dose Series (Moderna) 10/06/2020,09/08/2020 COVID-19, mRNA, LNP-s, PF, B ooster, 100mcg/0.5mg (Moderna) 04/14/2021 Covid-19, Mrna, Lnp-s, Pf, B ivalent, 50 Mcg, IM, 12 yrs and above (Moderna) 03/13/2022 Hepatitis B Vaccine, Recombi nant, Adjuvanted, 20 mcg/mL (Heplisav-B) 07/25/2022,06/23/2022 Seasonal Influenza, PF, 6 mo ns & Above, IM , (Flulaval) 01/24/2022,02/25/2021,06/06/2019,2018,06/02/2017 Seasonal Influenza, Quadriva lent, No Preserve, IM 01/29/2016 Seasonal Influenza, Split, I IV3, With Preserve, Inj 01/30/2014,02/10/2013 TDAP (age 10 and older)(Boostrix) 09/09/2013 Zoster Vaccine Recombinant (Shingrix) 07/04/2021 ,04/26/2021 documented as of this encounter Social History Tobacco Use Types Packs/Day Years Used Date Smoking Tobacco: Never Smokeless Tobacco: Never Alcohol Use Standard Drinks/Week Comments Yes 0 (1 standard drink = 0.6 oz pure alcohol) possibly a omar guzman 6 mo. Food Insecurity Answer Date Recorded Within the past 12 months, y ou worried that your food would run out before you got money to buy more. Never true 09/05/2022 Within the past 12 months, t he food you bought just didn't last and you didn't have money to get more. Never true 09/05/2022 Sex Assigned at Date Recorded Female 01/17/2022 12:28 AM EDT Job Start Date Occupation Industry Not on file Not on file Not on file documented as of this encounter Miscellaneous Notes * Telephone Encounter - Ortega Mancilla [facility] - 02/04/2023 9:09 PM EDT Signed Prescriptions: Disp Refills Ventolin HFA 108 (90 Base) MCG/ACT Inhalat*18 g 3 Sig: Inhale 2 Puffs by mouth every 4 hours as needed for Wheezing.Authorizing Provider: JENIFFER ZACARIAS User: ORTEGA MANCILLA documented in this encounter Plan of Treatment Upcoming Encounters Date Type Specialty Care Team Description 02/23/2023 Office Visit Family Medicine Sakshi Lucas DO [address] [place] [address] 03/05/2023 PulmDiagnostic Pul[facility] [address] [place] [address] 07/28/2023 Office Visit Family Medicine Jeniffer Zacarias MD [address] [place] [address] Scheduled Procedures Name Priority Associated Diagnoses Date/Ti me COLONOSCOPY FLEXIBLE PROXIMA L DIAGNOSTIC Recall Encounter for screening colonoscopy Health Maintenance Due Date Last Done Comments Hepatitis C Screening 11/30/1983 HPV/Co-Test 11/30/1995 Cologuard 2010 Fecal Occult Blood Test 2010 Sigmoidoscopy 2010 Cervical Cancer Screening 02/04/2020 Pap Smear 02/04/2020 02/03/2017, 0509/2013, 09/19/2013 Depression Screening 06/06/2020 06/06/2019 Influenza Vaccine (FLU shot) (#1) 2023 01/24/2022, 02/25/2021, 06/06/2019, Additional history exists Mammogram 01/30/2023 01/30/2022, 06/18, 01/28/2021, Additional history exists GFR 07/18/2023 07/17/2022, 06/18, 02/25/2021, Additional history exists DTaP,Tdap,and Td Vaccines (2 - Td or Tdap) 09/10/2023 09/09/2013 Lipid Panel 06/06/2024 06/06/2019, 05/18, 06/02/2017, Additional history exists Albumin/Creatinine Ratio 07/17/2025 07/17/2022, 05/18 Diabetes Screening 07/17/2025 07/17/2022, 0 07/17/2022, 07/06/2021, Additional history exists Colonoscopy 03/11/2026 03/11/2016, 03/11/2016 Colorectal Cancer Screening 03/11/2026 Zoster Vaccines Completed 07/04/2021, 04/26/2021 COVID-19 Vaccine Completed 03/13/2022, , 10/06/2020, Additional history exists Hepatitis B Completed 07/25/2022, 06/23/2022 GARDASIL-HPV IMMUNIZATION SERIES Aged Out No longer eligible based on patient's age to complete this topic MENINGOCOCCAL (MENACTRA/MENVEO) Aged Out No longer eligible based on patient's age to complete this topic Pneumococcal Vaccine: Pediatrics (0 to 5 Years) and At-Risk Patients (6 to 64 Years) Aged Out No longer eligible based on patient's age to complete this topic documented as of this encounter Medical Devices Implanted Type Area Corner Former Device Identifier Shelf Expiration Date Model / Serial / Lot V-40/C-Taper Adapter Sleeve Implanted:Qty: 1 on 07/25/2019 by Kojo Rashid DO at OR [facility] Left: Hip ILAN : ORTHOPAEDICS 11/30/2023 [id number] / / [id number] documented as of this encounter Visit Diagnoses Diagnosis Subacute cough Cough documented in this encounter Care Teams It Infrastructure Engineer Relationship Specialty Start Date End Date Jeniffer Zacarias MD [address] [place] [address] PCP - General Family Medicine 01/02/21 documented as of this encounter
--- OUTSIDE RECORDS SUMMARY | 2023-03-29 21:47 | External Medical Summary | Summary of Care ---
Author Name Unknown Organization [facility] Address [address] [place] [address] Phone [phone] Care Team Providers Care Mail List Processor Name Role Phone Dave Beaver MD Primary Care Provider [phone] Reason for Visit * Reason Comments Outpatient Testing Encounter Details Date Type Department Care Team Description 11/07/2022 Laboratory Laboratory, [facility] [address] [facility] [address] [facility] [address] [place] [address] Supraclavicular fossa fullness Allergies No known active allergiesdocumented as of this encounter (statuses as of 11/07/2022) Medications Medication Sig Dispensed Refills Start Date End Date Status MULTIVITAMINS PO CAPS 1 tablet daily 0 Active VITAMIN C 500 MG PO CAPS 1 tablet daily 0 Active CALCIUM 1000 + D 1000-800 MG-UNIT PO TABS 1 tablet daily 0 Active Spacer/Aero-Holding Chambers DeviceIndications:S ubacute cough Use with inhaler. 1 Each 0 06/23/2022 Active Additional Information Patient not taking.Reported on 11/06/2022 Omeprazole 20 MG Oral Capsule Delayed Release (PriLOSEC)Indicatio ns:Gastroesophageal reflux disease with esophagitis TAKE 1 CAPSULE DAILY 1 HOUR BEFORE THE FIRST MEAL OF THE DAY 90 Capsule 1 07/26/2022 Active Diclofenac Sodium 75 MG Oral Tablet Delayed Release (Voltaren)Indicatio ns:Left knee pain, unspecified chronicity,Chronic bilateral low back pain without sciatica,Hip pain, left TAKE 1 TABLET BY MOUTH TWICE DAILY WITH MORNING AND EVENING MEALS GENERIC EQUIVALENT FOR VOLTAREN 180 Tablet 1 07/26/2022 Active guaiFENesin ER 600 MG Oral Tablet Extended Release 12 Hour (Mucinex)Indication s:Cough present for greater than 3 weeks Take 1 Tablet by mouth 2 times a day as needed for Congestion. Take with plenty of water. Do not cut, crush or chew 40 Tablet 2 08/02/2022 Active Atenolol 50 MG Oral Tablet (Tenormin)Indicatio ns:HTN, goal below 130/80 TAKE 1 TABLET IN THE MORNING 90 Tablet 1 10/28/2022 Active Ventolin HFA 108 (90 Base) MCG/ACT Inhalation Aerosol SolutionIndications :Subacute cough Inhale 2 Puffs by mouth every 4 hours as needed for Wheezing. 18 g 3 10/28/2022 Active Fluticasone-[place] rol 100-50 MCG/ACT Inhalation Aerosol Powder Breath Activated (Advair Diskus)Indications: Cough present for greater than 3 weeks Inhale 1 Puff by mouth in the morning and 1 Puff before bedtime. 60 Each 1 10/31/2022 Active documented as of this encounter (statuses as of 11/07/2022) Active Problems Problem Noted Date Gastroesophageal reflux disease without esophagitis 02/25/2021 Morbid obesity 02/24/2021 HTN, goal below 130/80 06/02/2017 Fatty liver disease, nonalcoholic documented as of this encounter (statuses as of 11/07/2022) Resolved Problems Problem Noted Date Resolved Date Prediabetes 02/26/2021 07/25/2022 Osteoarthritis of left hip 05/19/201902/24 Hip pain, left 05/19/2019 02/24/2021 Ambulatory dysfunction 05/19/2019 Body mass index (BMI) of 40.0 to 44.9 in adult 1 02/24/2021 Overview: Per Obesity protocol #1 Rotator cuff (capsule) sprain and strain 014 01/09/2015 Reactive arthritis 02/10/2013 06/06/2019 documented as of this encounter (statuses as of 11/07/2022) Immunizations Name Administration Dates Next Due COVID-19 mRNA, LNP-s, No Pre serve, 2-Dose Series (Moderna) 10/06/2020,09/08/2020 Covid-19 Mrna, Lnp-s, No Pre serve, Booster (Moderna) 04/14/2021 Covid-19, Mrna, Lnp-s, Pf, B ivalent, 50 Mcg, IM, 12 yrs and above (Moderna) 03/13/2022 Hepatitis B Vaccine, Recombi nant, Adjuvanted, 20 mcg/mL (Heplisav-B) 07/25/2022,06/23/2022 Seasonal Influenza, Quadriva lent, No Preserve, 6 Mons & Above, IM 01/24/2022,02/25/2021,06/06/2019,2018,06/02/2017 Seasonal Influenza, Quadriva lent, No Preserve, [...] on file documented as of this encounter Plan of Treatment Upcoming Encounters Date Type Specialty Care Team Description 12/11/2022 Office Visit Orthopedics Kojo Rashid, DO [address] [place] [address] 01/01/2023 Office Visit Family Medicine Sakshi Lucas DO [address] [place] [address] 01/26/2023 Office Visit Family Medicine Dave Beaver MD [address] [place] [address] Pending Results Name Type Priority Associated Diagnoses Date /Time CBC WITH WBC DIFFERENTIAL Lab Routine Supraclavicular fossa fullness 11/07/2022 7:00 AM EDT CBC Lab Routine Supraclavicular fossa fullness 11/07/2022 7:00 AM EDT DIFFERENTIAL, AUTOMATED Lab Routine Supraclavicular fossa fullness 11/07/2022 7:00 AM EDT Scheduled Procedures Name Priority Associated Diagnoses Date/Ti me COLONOSCOPY FLEXIBLE PROXIMA L DIAGNOSTIC Recall Encounter for screening colonoscopy Health Maintenance Due Date Last Done Comments Hepatitis C Screening 11/30/1983 Cologuard 2010 Fecal Occult Blood Test 2010 Sigmoidoscopy 2010 Depression Screening, Annual for Pts 12 and Over 06/06/2020 06/06/2019 Pap Smear 02/03/2022 02/03/2017, 05/09/2013, 09/19/2013 Mammogram 01/30/2023 01/30/2022, 06/18, 01/28/2021, Additional history exists GFR 07/18/2023 07/17/2022, 06/18, 02/25/2021, Additional history exists DTaP,Tdap,and Td Vaccines (2 - Td or Tdap) 09/10/2023 09/09/2013 Lipid Panel 06/06/2024 06/06/2019, 05/18, 06/02/2017, Additional history exists Albumin/Creatinine Ratio 07/17/2025 07/17/2022, 05/18 Diabetes Screening 07/17/2025 07/17/2022, 0 07/17/2022, 07/06/2021, Additional history exists Colonoscopy 03/11/2026 03/11/2016, 03/11/2016 Colorectal Cancer Screening 03/11/2026 Zoster Vaccines Completed 07/04/2021, 04/26/2021 Influenza Vaccine (FLU shot) Completed 01/2022, 02/25/2021, 06/06/2019, Additional history exists COVID-19 Vaccine Completed 03/13/2022, , 10/06/2020, Additional [...] this encounter Medical Devices Implanted Type Area Boat Engine Mechanic Device Identifier Shelf Expiration Date Model / Serial / Lot V-40/C-Taper Adapter Sleeve Implanted:Qty: 1 on 07/25/2019 by Kojo Rashid DO at OR [facility] Left: Hip ILAN : ORTHOPAEDICS 11/30/2023 [id number] / / [id number] documented as of this encounter Visit Diagnoses Diagnosis Supraclavicular fossa fullness Swelling, mass, or lump in chest documented in this encounter Care Teams Mail List Processor Relationship Specialty Start Date End Date Dave Beaver MD [address] [place] [address] PCP - General Family Medicine 01/02/21 documented as of this encounter
--- OUTSIDE RECORDS SUMMARY | 2023-03-29 21:47 | External Medical Summary ---
Author Name Unknown Address Unknown Organization K0G:[facility] [address] [place] [address] Laboratory Report Ordering Provider Test Date Status DAKOTA GORDILLO 01/07/2023 18:42:41 Final For PreSurgery, Procedure, O B Admit, or Surveillance testing - Nasal Turbinate source preferred.

For Symptomatic testing - Nasopharyngeal source preferred.
null Observation Date Value Abnormality Reference (Units ) Status SARS Coronavirus 2 01/07/2023 18:42:41 Negative N egative Final 2018 Novel Coronavirus not d etected.

This express test was developed and its performance characteristics determined by [facility]. It has not been cleared or approved by the U.S. Food and Drug Administration (FDA). FDA does not require this test to go thru premarket FDA review. This test is used for clinical purposes. It should not be regarded as investigational or for research. This laboratory is certified under the Clinical Laboratory Improvement Amendments (CLIA) as qualified to perform high complexity clinical laboratory testing.

This test is a nucleic acid amplification test (NAAT), a reverse transcriptase polymerase chain reaction (RT-PCR) test, or a Centers for Disease Control-acceptable equivalent. The test is performed in a high complexity Clinical Laboratory Improvement Amendments-(CLIA) certified laboratory. The test is acceptable for SARS-CoV-2 diagnosis, surveillance, and travel within the [place] and to most countries. Please check with local testing authorities about requirements before travel.

The validation of bronchial specimens, tracheal aspirates, and sputum for this assay was developed and performance characteristics determined by [facility]. The validation of alternate specimen types has not been cleared or approved by the U.S. Food and Drug Administration (FDA). It has been determined that such clearance is not necessary. Performing Location [facility] [place] [address] [facility] [address]
--- OUTSIDE RECORDS SUMMARY | 2023-03-29 21:47 | External Medical Summary | Summary of Care ---
Author Name Unknown Organization [facility] Address [address] [place] [address] Phone [phone] Care Team Providers Care Manager Community Development Name Role Phone Jeniffer Zacarias MD Primary Care Provider [phone] [phone] Reason for Visit * Reason Comments eRx-Medication Refill Encounter Details Date Type Department Care Team Description 10/27/2022 Refill Family Medicine [facility] [address] [facility] [place] [id number] Jeniffer Zacarias MD [address] [place] [address] HTN, goal below 130/80 Allergies No known active allergiesdocumented as of this encounter (statuses as of 10/28/2022) Medications Medication Sig Dispensed Refills Start Date [...] FOR VOLTAREN 180 Tablet 1 07/26/2022 Active guaiFENesin-Codei ne 100-10 MG/5ML Oral Syrup (Robitussin AC)Indications:Wa lking pneumonia Take 5 mL by mouth every 4 hours as needed for Cough. 120 mL 0 07/25/2022 Active guaiFENesin ER 600 MG Oral Tablet Extended Release 12 Hour (Mucinex)Indicati ons:Cough present for greater than 3 weeks Take 1 Tablet by mouth 2 times a day as needed for Congestion. Take with plenty of water. Do not cut, crush or chew 40 Tablet 2 08/02/2022 Active predniSONE 10 MG Oral Tablet (Deltasone)Indica tions:Cough present for greater than 3 weeks Take 5 tabs for 2 days, 4 tabs for 2 days, 3 tabs for 2 days, 2 tabs for 2 days 1 tab for 2 days 30 Tablet 0 08/02/2022 Active Atenolol 50 MG Oral Tablet (Tenormin)Indicat ions:HTN, goal below 130/80 TAKE 1 TABLET IN THE MORNING 90 Tablet 1 10/28/2022 Active Fluticasone Propionate HFA 110 MCG/ACT Inhalation Aerosol (Flovent HFA)Indications:C ough present for greater than 3 weeks Inhale 2 Puffs by mouth in the morning and 2 Puffs before bedtime. 12 g 5 10/27/2022 Active Ventolin HFA 108 (90 Base) MCG/ACT Inhalation Aerosol SolutionIndicatio ns:Subacute cough Inhale 2 Puffs by mouth every 4 hours as needed for Wheezing. 18 g 3 10/28/2022 Active Atenolol 50 MG Oral Tablet (Tenormin)Indicat ions:HTN, goal below 130/80 Take by mouth 1 Tablet in the morning. 90 Tablet 3 08/09/2021 3 Discontinued documented as of this encounter (statuses as of 10/28/2022) Active Problems Problem Noted Date Gastroesophageal reflux disease without esophagitis 02/25/2021 Morbid obesity 02/24/2021 HTN, goal below 130/80 06/02/2017 Fatty liver disease, nonalcoholic documented as of this encounter (statuses as of 10/28/2022) Resolved Problems Problem Noted Date Resolved Date Prediabetes 02/26/2021 07/25/2022 Osteoarthritis of left hip 05/19/201902/24 Hip pain, left 05/19/2019 02/24/2021 Ambulatory dysfunction 05/19/2019 Body mass index (BMI) of 40.0 to 44.9 in adult 1 02/24/2021 Overview: Per Obesity protocol #1 Rotator cuff (capsule) sprain and strain 014 01/09/2015 Reactive arthritis 02/10/2013 06/06/2019 documented as of this encounter (statuses as of 10/28/2022) Immunizations Name Administration Dates Next Due COVID-19 [...] encounter Miscellaneous Notes * Telephone Encounter - Cristian Wilson RPh - 10/28/2022 11:00 AM EDTSigned Prescriptions: Disp Refills Atenolol 50 MG Oral Tablet (Tenormin) 90 Tab*1 Sig: TAKE 1 TABLET IN THE MORNINGAuthorizing Provider: JENIFFER ZACARIAS User: CRISTIAN WILSON documented in this encounter Plan of Treatment Upcoming Encounters Date Type Specialty Care Team Description 11/20/2022 Office Visit Family Medicine Sakshi Lucas DO [address] [place] [address] 11/20/2022 Office Visit Orthopedics Kojo Rashid DO [address] [place] [address] 01/26/2023 Office Visit Family Medicine Jeniffer Zacarias MD [address] [place] [address] Scheduled Procedures Name Priority Associated Diagnoses Date/Ti me COLONOSCOPY FLEXIBLE PROXIMA L DIAGNOSTIC Recall Encounter for screening colonoscopy Health Maintenance Due Date Last Done Comments Hepatitis C Screening 11/30/1983 Cologuard 2010 Fecal Occult Blood Test 2010 Sigmoidoscopy 2010 Depression Screening, Annual for Pts 12 and Over 06/06/2020 06/06/2019 Pap Smear 02/03/2022 02/03/2017, 09/2013, 09/19/2013 Mammogram 01/30/2023 01/30/2022, 06/18, 01/28/2021, Additional [...] this encounter Medical Devices Implanted Type Area Customer Field Representative Device Identifier Shelf Expiration Date Model / Serial / Lot V-40/C-Taper Adapter Sleeve Implanted:Qty: 1 on 07/25/2019 by Kojo Rashid DO at OR [facility] Left: Hip ILAN : ORTHOPAEDICS 11/30/2023 17-0000E / / [id number] documented as of this encounter Visit Diagnoses Diagnosis HTN, goal below 130/80 Unspecified essential hypertension documented in this encounter Care Teams Manager Community Development Relationship Specialty Start Date End Date Jeniffer Zacarias MD [address] [place] [address] PCP - General Family Medicine 01/02/21 documented as of this encounter
--- OUTSIDE RECORDS SUMMARY | 2023-03-29 21:47 | External Medical Summary | Summary of Care ---
Author Name Unknown Organization [facility] Address [address] [place] [address] Phone [phone] Care Team Providers Care Harness Tier Name Role Phone Jeniffer Zacarias MD Primary Care Provider [phone] [phone] Reason for Visit * Reason Onset Date Comments Medication Refill 10/27/2022 Encounter Details Date Type Department Care Team Description 10/27/[address] [facility] [address] [facility] [place] [address] Jeniffer Zacarias MD [address] [facility] [place] [id number] Cough present for greater than 3 weeks Allergies No known active allergiesdocumented as of this encounter (statuses as of 10/27/2022) Medications Medication Sig Dispensed Refills Start Date End Date Status MULTIVITAMINS PO CAPS 1 tablet daily 0 Active VITAMIN C 500 MG PO CAPS 1 tablet daily 0 Active CALCIUM 1000 + D 1000-800 MG-UNIT PO TABS 1 tablet daily 0 Active Atenolol 50 MG Oral Tablet (Tenormin)Indicat ions:HTN, goal below 130/80 Take by mouth 1 Tablet in the morning. 90 Tablet 3 08/09/2021 Active Ventolin HFA 108 (90 Base) MCG/ACT Inhalation Aerosol SolutionIndicatio ns:Subacute cough Inhale 2 Puffs by mouth every 4 hours as needed for Wheezing. 18 g 1 06/23/2022 Active Spacer/Aero-Holdi ng Chambers DeviceIndications :Subacute cough [...] 2 days 30 Tablet 0 08/02/2022 Active Fluticasone Propionate HFA 110 MCG/ACT Inhalation Aerosol (Flovent HFA)Indications:C ough present for greater than 3 weeks Inhale 2 Puffs by mouth in the morning and 2 Puffs before bedtime. 12 g 5 10/27/2022 Active Fluticasone Propionate HFA 110 MCG/ACT Inhalation Aerosol (Flovent HFA)Indications:C ough present for greater than 3 weeks Inhale 2 Puffs by mouth in the morning and 2 Puffs before bedtime. 12 g 2 09/15/2022 3 Discontinue d(Refill) documented as of this encounter (statuses as of 10/27/2022) Active Problems Problem Noted Date Gastroesophageal reflux disease without esophagitis 02/25/2021 Morbid obesity 02/24/2021 HTN, goal below 130/80 06/02/2017 Fatty liver disease, nonalcoholic documented as of this encounter (statuses as of 10/27/2022) Resolved Problems Problem Noted Date Resolved Date Prediabetes 02/26/2021 07/25/2022 Osteoarthritis of left hip 05/19/201902/24 Hip pain, left 05/19/2019 02/24/2021 Ambulatory dysfunction 05/19/2019 Body mass index (BMI) of 40.0 to 44.9 in adult 1 02/24/2021 Overview: Per Obesity protocol #1 Rotator cuff (capsule) sprain and strain 014 01/09/2015 Reactive arthritis 02/10/2013 06/06/2019 documented as of this encounter (statuses as of 10/27/2022) Immunizations Name Administration Dates Next Due COVID-19 [...] encounter Miscellaneous Notes * Telephone Encounter - Jeniffer Zacarias MD - 10/27/2022 10:55 AM EDTSigned Prescriptions: Disp Refills Fluticasone Propionate HFA 110 MCG/ACT Inh*12 g 5 Sig: Inhale 2 Puffs by mouth in the morning and 2 Puffs before bedtime. Authorizing Provider: JENIFFER ZACARIAS * Telephone Encounter - Violette Lal LPN - 10/27/2022 8:48 AM EDTPending Prescriptions: Disp Refills Fluticasone Propionate HFA 110 MCG/ACT Inh*12 g 5 Sig: Inhale 2 Puffs by mouth in the morning and 2 Puffs before bedtime. * Telephone Encounter - [place]te Lal LPN - 10/27/2022 8:43 AM EDT Pending Prescriptions: Disp Refills Fluticasone Propionate HFA 110 MCG/ACT In*12 g 2 Sig: Inhale 2 Puffs by mouth in the morning and 2 Puffs before bedtime. Last Visit: 08/02/2022 (in office), Visit date not found (telemedicine) Next Visit: Visit date not found Last date the medication was ordered: 09/15/22 Patient Active Problem List Diagnosis Code Fatty liver disease, nonalcoholic K76.0 HTN, goal below 130/80 I10 Morbid obesity (HCC) E66.01 Gastroesophageal reflux disease without esophagitis K21.9 Labs: Lab Results Component Value Date/Time CREATININE - [facility] 0.8 07/17/2022 09:37 AM CREATININE - [facility] 0.5 07/26/2019 06:02 AM CREATININE, RANDOM URINE - [facility] 307 07/17/2022 09:37 AM CREATININE, RANDOM URINE - [facility] 250 06/03/2018 11:01 AM Lab Results Component Value Date/Time POTASSIUM - [facility] 4.4 07/17/2022 09:37 AM POTASSIUM - [facility] 4.6 07/26/2019 06:02 AM Lab Results Component Value Date/Time TSH - [facility] 9.22 (H) 07/06/2021 12:29 PM Lab Results Component Value Date/Time LDL CHOLESTEROL (CALCULATED) - [facility] 125 06/06/2019 09:30 AM LDL CHOLESTEROL (CALCULATED) - [facility] 133 (H) 06/03/2018 09:52 AM LDL CHOLESTEROL (DIRECT MEASURE) - [facility] NOT APPLICABLE 06/06/2019 09:30 AM LDL CHOLESTEROL (DIRECT MEASURE) - [facility] NOT APPLICABLE 06/03/2018 09:52 AM Lab Results Component Value Date/Time ALT - [facility] 63 (H) 07/17/2022 09:37 AM ALT - [facility] 82 (H) 07/19/2019 11:42 AM Hemoglobin AIC Results: Lab Results Component Value Date/Time HEMOGLOBIN A1C - [facility] 5.6 07/17/2022 09:37 AM HEMOGLOBIN A1C - [facility] 5.8 (H) 02/25/2021 11:05 AM HEMOGLOBIN A1C - [facility] 5.5 07/19/2019 11:42 AM documented in this encounter Plan of Treatment Upcoming Encounters Date Type Specialty Care Team Description 11/20/2022 Office Visit Family Medicine Sakshi Lucas, [address] [place] [address] 11/20/2022 Office Visit Orthopedics Kojo Rashid DO [address] [place] [address] 01/26/2023 Office Visit Family Medicine Jeniffer Zacarias MD [address] [place] [address] Scheduled Procedures Name Priority Associated Diagnoses Date/Ti me COLONOSCOPY FLEXIBLE PROXIMA L DIAGNOSTIC Recall Encounter for screening colonoscopy Health Maintenance Due Date Last Done Comments Hepatitis C Screening 11/30/1983 Cologuard 2010 Fecal Occult Blood Test 2010 Sigmoidoscopy 2010 Depression Screening, Annual for Pts 12 and Over 06/06/2020 06/06/2019 Pap Smear 02/03/2022 02/03/2017, 0509/2013, 09/19/2013 Mammogram 01/30/2023 01/30/2022, 06/18, 01/28/2021, Additional [...] this encounter Medical Devices Implanted Type Area Recoater Device Identifier Shelf Expiration Date Model / Serial / Lot V-40/C-Taper Adapter Sleeve Implanted:Qty: 1 on 07/25/2019 by Kojo Rashid, at OR [facility] Left: Hip ILAN : ORTHOPAEDICS 11/30/2023 17-0000E / / [id number] documented as of this encounter Visit Diagnoses Diagnosis Cough present for greater than 3 weeks documented in this encounter Care Teams Harness Tier Relationship Specialty Start Date End Date Jeniffer Zacarias MD [address] [place] [address] PCP - General Family Medicine 01/02/21 documented as of this encounter
--- OUTSIDE RECORDS SUMMARY | 2023-03-29 21:47 | External Medical Summary | Summary of Care ---
Author Name Unknown Organization [facility] Address [address] [place] [address] Phone [phone] Care Team Providers Care Heavy Equipment Sales Manager Name Role Phone Dave Beaver MD Primary Care Provider [phone] [phone] Reason for Visit * Reason Comments Pulmonary Function Test Spirogram with b rashardchodilator Encounter Details Date Type Department Care Team Description 03/05/2023 PulmDiagnostic Pulmonary Function Lab, [facility] [address] [facility] [place] [address] [place], [address] [place] [address] Cough present for greater than 3 weeks* Allergies No known active allergiesdocumented as of this encounter (statuses as of 03/05/2023) Medications Medication Sig Dispensed Refills Start Date [...] THE MORNING 90 Tablet 1 10/28/2022 Active guaiFENesin-Codeine 100-10 MG/5ML Oral Syrup (Robitussin AC)Indications:Coug h present for greater than 3 weeks Take [...] for Wheezing. 18 g 3 02/04/2023 Active Hospital, Clinic, or Other Facility Administered Medication Ordered Dose Route Frequency Start Date End Date Status Albuterol Sulfate (Proventil) (2.5 MG/3ML) 0.083% inhalation solution 2.5 mgIndications:Cough present for greater than 3 weeks 2.5 mg NEBULIZER ONCE PRN 01/26/2023 01/26/2024 Active documented as of this encounter (statuses as of 03/05/2023) Active Problems Problem Noted Date Gastroesophageal reflux disease without esophagitis 02/25/2021 Morbid obesity 02/24/2021 HTN, goal below 130/80 06/02/2017 Fatty liver disease, nonalcoholic documented as of this encounter (statuses as of 03/05/2023) Resolved Problems Problem Noted Date Resolved Date Prediabetes 02/26/2021 07/25/2022 Osteoarthritis of left hip 05/19/201902/24 Hip pain, left 05/19/2019 02/24/2021 Ambulatory dysfunction 05/19/2019 Body mass index (BMI) of 40.0 to 44.9 in adult 1 02/24/2021 Overview: Per Obesity protocol #1 Rotator cuff (capsule) sprain and strain 014 01/09/2015 Reactive arthritis 02/10/2013 06/06/2019 documented as of this encounter (statuses as of 03/05/2023) Immunizations Name Administration Dates Next Due COVID-19 mRNA, LNP-s, No Pre serve, 2-Dose Series (Moderna) 10/06/2020,09/08/2020 COVID-19, mRNA, LNP-s, PF, B ooster, 100mcg/0.5mg (Moderna) 04/14/2021 Covid-19, Mrna, Lnp-s, Pf, B ivalent, 50 Mcg, IM, 12 yrs and above (Moderna) 03/13/2022 Hepatitis B Vaccine, Recombi nant, Adjuvanted, 20 mcg/mL (Heplisav-B) 07/25/2022,06/23/2022 SEASONAL INFLUENZA, PF, 6 M & Above, IM , (FLULAVAL or FLUZONE) 01/24/2022,02/25/2021,06/06/2019,2018,06/02/2017 Seasonal Influenza, Quadriva lent, No Preserve, IM 01/29/2016 Seasonal Influenza, Split, I IV3, With Preserve, Inj 01/30/2014,02/10/2013 TDAP (age 10 and older)(Boostrix) 09/09/2013 Zoster Vaccine Recombinant (Shingrix) 07/04/2021 ,04/26/2021 documented as of this encounter Social History Tobacco Use Types Packs/Day Years Used Date Smoking Tobacco: Never Smokeless Tobacco: Never Tobacco Cessation:Counseling Given: Not Answered Alcohol Use Standard Drinks/Week Comments Yes 0 [...] on file documented as of this encounter Last Filed Vital Signs Vital Sign Reading Time Taken Comments Blood Pressure - - Pulse - - Temperature 35.6 C (96 F) 03/05/2023 8:32 AM EDT Respiratory Rate - - Oxygen Saturation - - Inhaled Oxygen Concentration - - Weight 122 kg (268 lb 15.4 oz) 03/05/2023 8:32 A M EDT Height 160.7 cm (5' 3.27") 03/05/2023 8:32 AM ED T Body Mass Index 47.24 03/05/2023 8:32 AM EDT documented in this encounter Nursing Notes * Stanislaw Riley RRT - 03/05/2023 8:41 AM EDT Rowena Santillan was identified by name, Date of : (1965), and . Vitals were obtained for testing. Body mass index is 47.24 kg/m. Pt does not have a smoking history. 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 Spirometry performed before and after a slow volume nebulizer treatment of 0.5ml of albuterol in 3 ml of NSS. Administrations This Visit Albuterol Sulfate (Proventil) (2.5 MG/3ML) 0.083% inhalation solution 2.5 mg Admin Date 03/05/2023 Action Given Dose 2.5 mg Route Nebulizer Administered By Stanislaw Riley RRT documented in this encounter Plan of Treatment Upcoming Encounters Date Type Specialty Care Team Description 03/26/2023 Office Visit Family Medicine Sakshi Lucas DO [address] [place] [address] 05/07/2023 Office Visit Otolaryngology Lois Parry PA-C [address] [place] [address] 07/28/2023 Office Visit Family Medicine Dave Beaver MD [address] [place] [address] Pending Results Name Type Priority Associated Diagnoses Date /Time SPIROMETRY B/A BRONCHODILATOR Procedures Routine Cough present for greater than 3 weeks 03/05/2023 8:33 AM EDT Scheduled Procedures Name Priority Associated Diagnoses Date/Ti me COLONOSCOPY FLEXIBLE PROXIMA L DIAGNOSTIC Recall Encounter for screening colonoscopy Health Maintenance Due Date Last Done Comments Hepatitis C Screening 11/30/1983 HPV/Co-Test 11/30/1995 Cologuard 2010 Fecal Occult Blood Test 2010 Sigmoidoscopy 2010 Cervical Cancer Screening 02/04/2020 Pap Smear 02/04/2020 02/03/2017, 09/2013, 09/19/2013 Depression Screening 06/06/2020 06/06/2019 COVID-19 Vaccine ( season) 2023 03/13/2022, 04/14/2021, 10/06/2020, Additional history exists Influenza Vaccine (FLU shot) (#1) 2023 01/24/2022, [...] Screening 03/11/2026 Zoster Vaccines Completed 07/04/2021, 04/26/2021 Hepatitis B Completed 07/25/2022, 06/23/2022 GARDASIL-HPV IMMUNIZATION [...] this encounter Medical Devices Implanted Type Area Curriculum Facilitator Device Identifier Shelf Expiration Date Model / Serial / Lot V-40/C-Taper Adapter Sleeve Implanted:Qty: 1 on 07/25/2019 by Kojo Rashid, at OR [facility] Left: Hip ILAN : ORTHOPAEDICS 11/30/2023 17-0000E / / [id number] documented as of this encounter Procedures Procedure Name Priority Date/Time Associated Diagnosis Comments SPIROMETRY B/A BRONCHODILATOR Routine 03/05/2023 8:33 AM EDT Cough present for greater than 3 weeks documented in this encounter Visit Diagnoses Diagnosis Cough present for greater than 3 weeks- Primary documented in this encounter Administered Medications Active Administered Medications - up to 3 most recent administrations Medication Order MAR Action Action Date Dose Rate Site Albuterol Sulfate (Proventil) (2.5 MG/3ML) 0.083% inhalation solution 2.5 mg 2.5 mg, Nebulizer, ONCE PRN Other, Testing, Starting on Thu01/26/23 at 0753, Until Thu01/26/24 at 0752, For 365 days, Only one type of albuterol product should be administered (Nebulizer or Inhaler). Please select and document on the appropriate albuterol product order. Given 03/05/2023 8:43 AM EDT 2.5 mg documented in this encounter Care Teams Heavy Equipment Sales Manager Relationship Specialty Start Date End Date Dave Beaver MD [address] [place] [address] PCP - General Family Medicine 01/02/21 documented as of this encounter
--- OUTSIDE RECORDS SUMMARY | 2023-03-29 21:47 | External Medical Summary | Summary of Care ---
Author Name Unknown Organization [facility] Address [address] [place] [address] Phone [phone] Care Team Providers Care Route Delivery Service Driver Name Role Phone Dave Beaver MD Primary Care Provider [phone] [phone] Encounter Details Date Type Department Care Team Description 11/13/2022 Patient Reported Data Patient Survey Ortho [facility] Allergies No known active allergiesdocumented as of this encounter (statuses as of 11/13/2022) Medications Medication Sig Dispensed Refills Start Date [...] as of this encounter (statuses as of 11/13/2022) Active Problems Problem Noted Date Gastroesophageal reflux disease without esophagitis 02/25/2021 Morbid obesity 02/24/2021 HTN, goal below 130/80 06/02/2017 Fatty liver disease, nonalcoholic documented as of this encounter (statuses as of 11/13/2022) Resolved Problems Problem Noted Date Resolved Date Prediabetes 02/26/2021 07/25/2022 Osteoarthritis of left hip 05/19/201902/24 Hip pain, left 05/19/2019 02/24/2021 Ambulatory dysfunction 05/19/2019 Body mass index (BMI) of 40.0 to 44.9 in adult 1 02/24/2021 Overview: Per Obesity protocol #1 Rotator cuff (capsule) sprain and strain 014 01/09/2015 Reactive arthritis 02/10/2013 06/06/2019 documented as of this encounter (statuses as of 11/13/2022) Immunizations Name Administration Dates Next Due COVID-19 [...] Description 12/11/2022 Office Visit Orthopedics Kojo Rashid, [address] [place] [address] 01/01/2023 Office Visit Family Medicine Sakshi Lucas, [address] [place] [address] 01/26/2023 Office Visit Family Medicine Dave Beaver MD [address] [place] [address] Scheduled Procedures Name Priority Associated Diagnoses Date/Ti me COLONOSCOPY FLEXIBLE PROXIMA L DIAGNOSTIC Recall Encounter for screening colonoscopy Health Maintenance Due Date Last Done Comments Hepatitis C Screening 11/30/1983 Cologuard 2010 Fecal Occult Blood Test 2010 Sigmoidoscopy 2010 Depression Screening, Annual for Pts 12 and Over 06/06/2020 06/06/2019 Pap Smear 02/03/2022 02/03/2017, 05/0 09/2013, 09/19/2013 Mammogram 01/30/2023 01/30/2022, 06/18, 01/28/2021, [...] this encounter Medical Devices Implanted Type Area Polysomnographic Tech Device Identifier Shelf Expiration Date Model / Serial / Lot V-40/C-Taper Adapter Sleeve Implanted:Qty: 1 on 07/25/2019 by Kojo Rashid DO at OR [facility] Left: Hip ILAN : ORTHOPAEDICS 11/30/2023 17-0000E / / [id number] documented as of this encounter Care Teams Route Delivery Service Driver Relationship Specialty Start Date End Date Dave Beaver MD [address] [place] [address] PCP - General Family Medicine 01/02/21 documented as of this encounter
--- OUTSIDE RECORDS SUMMARY | 2023-03-29 21:47 | External Medical Summary | Summary of Care ---
Author Name Unknown Organization [facility] Address [address] [place] [address] Phone [phone] Care Team Providers Care Route Sales Trainee Name Role Phone Dave Beaver MD Primary Care Provider [phone] Reason for Visit * Reason Comments Upper Respiratory Infection Since Thursd ay, cough, sinus congestion, pressure in head, throat congestion, chills, ? Fever. Did home covid test, but results were questionable Encounter Details Date Type Department Care Team Description 01/07/2023 Office Visit Family [facility] [address] [facility] [place] [id number] Evie Rendon, DO [address] [facility] [address] Acute maxillary sinusitis, recurrence not specified* Allergies No known active allergiesdocumented as of this encounter (statuses as of 01/19/2023) Medications Medication Sig Dispensed Refills Start Date End Date Status MULTIVITAMINS PO CAPS 1 tablet daily 0 Active VITAMIN C 500 MG PO CAPS 1 tablet daily 0 Active CALCIUM 1000 + D 1000-800 MG-UNIT PO TABS 1 tablet daily 0 Active Spacer/Aero-Holdin g Chambers DeviceIndications: Subacute cough Use with inhaler. 1 Each 0 06/23/2022 Active Omeprazole 20 MG Oral Capsule Delayed Release (PriLOSEC)Indicati ons:Gastroesophage al reflux disease with esophagitis TAKE 1 CAPSULE DAILY 1 HOUR BEFORE THE FIRST MEAL OF THE DAY 90 Capsule 1 07/26/2022 Active Diclofenac Sodium 75 MG Oral Tablet Delayed Release (Voltaren)Indicati ons:Left knee pain, unspecified chronicity,Chronic bilateral low back pain without sciatica,Hip pain, left TAKE 1 TABLET BY MOUTH TWICE DAILY WITH MORNING AND EVENING MEALS GENERIC EQUIVALENT FOR VOLTAREN 180 Tablet 1 07/26/2022 Active guaiFENesin ER 600 MG Oral Tablet Extended Release 12 Hour (Mucinex)Indicatio ns:Cough present for greater than 3 weeks Take 1 Tablet by mouth 2 times a day as needed for Congestion. Take with plenty of water. Do not cut, crush or chew 40 Tablet 2 08/02/2022 Active Atenolol 50 MG Oral Tablet (Tenormin)Indicati ons:HTN, goal below 130/80 TAKE 1 TABLET IN THE MORNING 90 Tablet 1 10/28/2022 Active Ventolin HFA 108 (90 Base) MCG/ACT Inhalation Aerosol SolutionIndication s:Subacute cough Inhale 2 Puffs by mouth every 4 hours as needed for Wheezing. 18 g 3 10/28/2022 Active Fluticasone-Salmet christopher 100-50 MCG/ACT Inhalation Aerosol Powder Breath Activated (Advair Diskus)Indications :Cough present for greater than 3 weeks Inhale 1 Puff by mouth in the morning and 1 Puff before bedtime. 60 Each 1 10/31/2022 Active Amoxicillin-Pot Clavulanate 875-125 MG Oral Tablet (Augmentin)Indicat ions:Acute maxillary sinusitis, recurrence not specified Take 1 Tablet by mouth in the morning and 1 Tablet before bedtime. Do all this for 10 days. 20 Tablet 0 01/07/2023 01/17/2023 documented as of this encounter (statuses as of 01/19/2023) Active Problems Problem Noted Date Gastroesophageal reflux disease without esophagitis 02/25/2021 Morbid obesity 02/24/2021 HTN, goal below 130/80 06/02/2017 Fatty liver disease, nonalcoholic documented as of this encounter (statuses as of 01/19/2023) Resolved Problems Problem Noted Date Resolved Date Prediabetes 02/26/2021 07/25/2022 Osteoarthritis of left hip 05/19/201902/24 Hip pain, left 05/19/2019 02/24/2021 Ambulatory dysfunction 05/19/2019 Body mass index (BMI) of 40.0 to 44.9 in adult 1 02/24/2021 Overview: Per Obesity protocol #1 Rotator cuff (capsule) sprain and strain 014 01/09/2015 Reactive arthritis 02/10/2013 06/06/2019 documented as of this encounter (statuses as of 01/19/2023) Immunizations Name Administration Dates Next Due COVID-19 [...] Sign Reading Time Taken Comments Blood Pressure 148/90 01/07/2023 6:18 PM EDT Pulse 75 01/07/2023 6:18 PM EDT Temperature 36.3 C (97.4 F) 01/07/2023 6:18 PM ED T Respiratory Rate - - Oxygen Saturation 95% 01/07/2023 6:18 PM EDT Inhaled Oxygen Concentration - - Weight - - Height - - Body Mass Index - - documented in this encounter Progress Notes * Evie Rendon, DO - 01/07/2023 6:31 PM EDT Subjective: Rowena Santillan is a 57 year old female. Chief Complaint Patient presents with Upper Respiratory Infection Since , cough, sinus congestion, pressure in head, throat congestion, chills, ? Fever. Did home covid test, but results were questionable HPI: Pt w/cold sx for almost a week now. + stuffy head, PND, + cough and had chills last night. Did2 covid tests that were negative. Not sure how accurate they are. No known sick contacts. Sometimes feels like she can't catch her breath, not sure if from coughing. Fully vaccinated for covid. PHM: Patient Active Problem List Diagnosis Code Fatty liver disease, nonalcoholic K76.0 HTN, goal below 130/80 I10 Morbid obesity (HCC) E66.01 Gastroesophageal reflux disease without esophagitis K21.9 Current Outpatient Medications Medication Sig Dispense Refill MULTIVITAMINS PO CAPS 1 tablet daily VITAMIN C 500 MG PO CAPS 1 tablet daily CALCIUM 1000 + D 1000-800 MG-UNIT PO TABS 1 tablet daily Spacer/Aero-Holding Chambers Device Use with inhaler. 1 Each 0 Omeprazole 20 MG Oral Capsule Delayed Release (PriLOSEC) TAKE 1 CAPSULE DAILY 1 HOUR BEFORE THE FIRST MEAL OF THE DAY 90 Capsule 1 Diclofenac Sodium 75 MG Oral Tablet Delayed Release (Voltaren) TAKE 1 TABLET BY MOUTH TWICE DAILY WITH MORNING AND EVENING MEALS GENERIC EQUIVALENT FOR VOLTAREN 180 Tablet 1 guaiFENesin ER 600 MG Oral Tablet Extended Release 12 Hour (Mucinex) Take 1 Tablet by mouth 2 timesa day as needed for Congestion. Take with plenty of water. Do not cut, crush or chew 40 Tablet 2 Atenolol 50 MG Oral Tablet (Tenormin) TAKE 1 TABLET IN THE MORNING 90 Tablet 1 Ventolin HFA 108 (90 Base) MCG/ACT Inhalation Aerosol Solution Inhale 2 Puffs by mouth every 4 hours as needed for Wheezing. 18 g 3 Fluticasone-Salmeterol 100-50 MCG/ACT Inhalation Aerosol Powder Breath Activated (Advair Diskus) Inhale 1 Puff by mouth in the morning and 1 Puff before bedtime. 60 Each 1 No current facility-administered medications for this visit. Past Medical History: Diagnosis Date Fatty liver disease, nonalcoholic Gastroesophageal reflux disease without esophagitis 02/25/2021 GERD (gastroesophageal reflux disease) HTN (hypertension) HTN, goal below 130/80 06/02/2017 Morbid obesity due to excess calories (HCC) 02/24/2021 Prediabetes 02/26/2021 Primary generalized (osteo)arthritis Reactive arthritis (HCC) 06/2016 Past Surgical History: Procedure Laterality Date BUNION CORRECTED WITH DOUBLE OSTEOTOMY Bilateral 1993 both feet COLONOSCOPY, DIAGNOSTIC (RECTUM) 03/11/2016 diverticulosis, repeat 10 yrs/COLONOSCOPY FLEXIBLE PROXIMAL DIAGNOSTIC performed by Ashwin Burden MD at ENDOSCOPY [facility] DENTAL SURGERY PROCEDURE NEC 1983 FOOT/TOE SURGERY NEC Right 09/21/2013 right foot INFORMATION T&A. TOTAL HIP REPLACEMENT & PROSTHESIS Left 07/25/2019 ARTHROPLASTY TOTAL HIP performed by Kojo Rashid DO at OR [facility] Review of patient's allergies indicates: No Known Allergies Objective: BP 148/90 | Pulse 75 | Temp 36.3 C (97.4 F) (Tympanic) | LMP 08/17/2013 | SpO2 95% Review of Systems: As per HPI, all other ROS neg. Physical Exam: General: alert, healthy, no distress, well nourished and well developed Head: Normocephalic, No masses, lesions, tenderness or abnormalities Ears: External ears normal, Canals clear, TM's Normal Nose: clear rhinorrhea, mucosal edema, mucosal erythema, sinus tenderness Oropharynx: no exudate, lips, buccal mucosa, and tongue normal, mucous membranes are moist, mild erythema and post nasal drip Neck: supple, small benign anterior cervical nodes bilaterally Heart: regular rate & rhythm, no murmurs and no gallops Lungs: clear to auscultation Acute maxillary sinusitis, recurrence not specified (Primary) - Amoxicillin-Pot Clavulanate 875-125 MG Oral Tablet (Augmentin); Take 1 Tablet by mouth in the morning and 1 Tablet before bedtime. Do all this for 10 days. - SARS-COV-2 (COVID-19), NAAT Follow up: as needed. Evie Rendon DO documented in this encounter Plan of Treatment Upcoming Encounters Date Type Specialty Care Team Description 01/22/2023 Office Visit Orthopedics Kojo Rashid DO [address] [place] [address] 01/26/2023 Office Visit Family Medicine Dave Beaver MD [address] [place] [address] 02/23/2023 Office Visit Family Medicine Sakshi Lucas DO [address] [place] [address] Scheduled Procedures Name Priority Associated Diagnoses Date/Ti me COLONOSCOPY FLEXIBLE PROXIMA L DIAGNOSTIC Recall Encounter for screening colonoscopy Health Maintenance Due Date Last Done Comments Hepatitis C Screening 11/30/1983 HPV/Co-Test 11/30/1995 Cologuard 2010 Fecal Occult Blood Test 2010 Sigmoidoscopy 2010 Cervical Cancer Screening 02/04/2020 Pap Smear 02/04/2020 02/03/2017, 0509/2013, 09/19/2013 Depression Screening, Annual for Pts 12 and Over 06/06/2020 06/06/2019 Influenza Vaccine (FLU shot) (#1) [...] this encounter Medical Devices Implanted Type Area Capacity Planning Analyst Device Identifier Shelf Expiration Date Model / Serial / Lot V-40/C-Taper Adapter Sleeve Implanted:Qty: 1 on 07/25/2019 by Kojo Rashid DO at OR [facility] Left: Hip ILAN : ORTHOPAEDICS 11/30/2023 17-0000E / / [id number] documented as of this encounter Procedures Procedure Name Priority Date/Time Associated Diagnosis Comments SARS-COV-2 (COVID-19), NAAT Routine 01/07/2023 6:42 PM EDT Acute maxillary sinusitis, recurrence not specified documented in this encounter Results * SARS-COV-2 (COVID-19), NAAT (01/07/2023 6:42 PM EDT) Pathologist [facility] SARS-CoV-2 (COVID-19) Result Negative Negative 01/08/2023 8:19 AM EDT [facility]10 Comment: 2019 Novel Coronavirus not detected. This express test was developed and its performance characteristics determined by [employer]. It has not been cleared or approved [...] (RT-PCR) test, or a Centers for Disease Control- acceptable equivalent. The test is performed in a high complexity Clinical Laboratory Improvement Amendments-(CLIA) certified laboratory. The test is acceptable for SARS-CoV-2 diagnosis, surveillance, and travel within the [place] and to most countries. Please check with local testing authorities about requirements before travel. The validation of bronchial specimens, tracheal aspirates, and sputum for this assay was developed and performance characteristics determined by [facility] [facility]. The validation of alternate specimen types has not been cleared or approved by the U.S. Food and Drug Administration (FDA). It has been determined that such clearance is not necessary. Upper Respiratory Mid-turbinate nasal swab / Unknown Non-blood Collection / Unknown 01/07/2023 6:42 PM EDT 01/08/2023 7:18 AM EDT Evie Rendon DO LAB MICRO - GENERAL ORDERABLES [facility] [place] [address] documented in this encounter Visit Diagnoses Diagnosis Acute maxillary sinusitis, recurrence not specified- Primary documented in this encounter Care Teams Route Sales Trainee Relationship Specialty Start Date End Date Dave Beaver MD [address] [place] [address] PCP - General Family Medicine 01/02/21 documented as of this encounter"
--- OUTSIDE RECORDS SUMMARY | 2023-03-29 21:47 | External Medical Summary | Summary of Care ---
Author Name Unknown Organization [facility] Address [address] [place] [address] Phone [phone] Care Team Providers Care Technical Expert Name Role Phone Dave Beaver MD Primary Care Provider [phone] Encounter Details Date Type Department Care Team [...] Kojo Rashid, [address] [place] [address] 01/01/2023 Office Visit Family Medicine Sakshi Lucas, [address] [place] [address] 01/26/2023 Office Visit Family Medicine Dave Beaver MD [address] [place] [address] Scheduled Procedures Name Priority Associated Diagnoses Date/Ti [...] this encounter Medical Devices Implanted Type Area Hydrostatic Tester Device Identifier Shelf Expiration Date Model / Serial / Lot V-40/C-Taper Adapter Sleeve Implanted:Qty: 1 on 07/25/2019 by Kojo Rashid DO at OR [facility] Left: Hip ILAN : ORTHOPAEDICS 11/30/2023 17-0000E / / [id number] documented as of this encounter Care Teams Technical Expert Relationship Specialty Start Date End Date Dave Beaver MD [address] [place] [address] PCP - General Family Medicine 01/02/21 documented as of this encounter
--- OUTSIDE RECORDS SUMMARY | 2023-03-29 21:47 | External Medical Summary ---
Author Name Unknown Address Unknown Organization [facility] [address] [place] [address] Laboratory Report Ordering Provider Test Date Status ADOLFO FIGUEROA 11/07/2022 07:00:53 Final Observation Date Value Abnormality Reference (Units ) Status SYNC LEUKOCYTES IN BLOOD BY AUTOMATED COUNT 11/07/2022 07:00:53 8.14 4.00-10.80 (K/uL) Final Segs 11/07/2022 07:00:53 57.2 40.0-75.0 (%) Final Lymphs % 11/07/2022 07:00:53 30.5 18.0-42.0 (%) Final Monos 11/07/2022 07:00:53 8.7 1.0-11.0 (%) Final Eosinophils 11/07/2022 07:00:53 3.2 0.0-6.0 (%) Final Basos 11/07/2022 07:00:53 0.4 0.0-2.0 (%) Final Absolute Segs 11/07/2022 07:00:53 4.66 1.80-7.70 (K/uL) Final Lymphs, absolute 11/07/2022 07:00:53 2.48 1.00-4.80 (K/ul) Final Monos, Abs 11/07/2022 07:00:53 0.71 0.00-1.10 (K/uL) Final Eos, Abs 11/07/2022 07:00:53 0.26 0.00-0.70 (K/uL) Final Basos, Abs 11/07/2022 07:00:53 0.03 0.00-0.20 (K/uL) Final Performing Location [facility]ATORY [facility] - [address] [place] [address]
--- OUTSIDE RECORDS SUMMARY | 2023-03-29 21:47 | External Medical Summary | Summary of Care ---
Author Name Unknown Organization [facility] Address [address] [place] [address] Phone [phone] Care Team Providers Care Car Wrecker Name Role Phone Dave Beaver MD Primary Care Provider [phone] Encounter Details Date Type Department Care Team [...] Kojo Rashid, [address] [place] [address] 01/01/2023 Office Visit Family Medicine Sakshi Lucas, [address] [place] [address] 01/26/2023 Office Visit Family Medicine Dave Beaver MD [address] [place] [address] Scheduled Procedures Name Priority Associated Diagnoses Date/Ti [...] this encounter Medical Devices Implanted Type Area Head Knitting Machine Fixer Device Identifier Shelf Expiration Date Model / Serial / Lot V-40/C-Taper Adapter Sleeve Implanted:Qty: 1 on 07/25/2019 by Kojo Rashid DO at OR [facility] Left: Hip ILAN : ORTHOPAEDICS 11/30/2023 17-0000E / / [id number] documented as of this encounter Care Teams Car Wrecker Relationship Specialty Start Date End Date Dave Beaver MD [address] [place] [address] PCP - General Family Medicine 01/02/21 documented as of this encounter
--- OUTSIDE RECORDS SUMMARY | 2023-03-29 21:47 | External Medical Summary | Summary of Care ---
Author Name Unknown Organization [facility] Address [address] [place] [address] Phone [phone] Care Team Providers Care Ends Down Checker Name Role Phone Dave Beaver MD Primary Care Provider [phone] Encounter Details Date Type Department Care Team Description 01/06/2023 Orders Only Outcomes Research Department [address] [place], [place] [id number] Eboni Pimentel [facility] Other*[id number] Allergies No known active allergiesdocumented as of this encounter (statuses as of 01/06/2023) Medications Medication Sig Dispensed Refills Start Date [...] as of this encounter (statuses as of 01/06/2023) Active Problems Problem Noted Date Gastroesophageal reflux disease without esophagitis 02/25/2021 Morbid obesity 02/24/2021 HTN, goal below 130/80 06/02/2017 Fatty liver disease, nonalcoholic documented as of this encounter (statuses as of 01/06/2023) Resolved Problems Problem Noted Date Resolved Date Prediabetes 02/26/2021 07/25/2022 Osteoarthritis of left hip 05/19/201902/24 Hip pain, left 05/19/2019 02/24/2021 Ambulatory dysfunction 05/19/2019 Body mass index (BMI) of 40.0 to 44.9 in adult 1 02/24/2021 Overview: Per Obesity protocol #1 Rotator cuff (capsule) sprain and strain 014 01/09/2015 Reactive arthritis 02/10/2013 06/06/2019 documented as of this encounter (statuses as of 01/06/2023) Immunizations Name Administration Dates Next Due COVID-19 [...] Specialty Care Team Description 01/22/2023 Office Visit Family Medicine Sakshi Lucas, [address] [place] [address] 01/22/2023 Office Visit Orthopedics Kojo Rashid, [address] [place] [address] 01/26/2023 Office Visit Family Medicine Dave Beaver MD [address] [place] [address] Scheduled Orders Name Type Priority Associated Diagnoses Orde r Schedule MYCODE SUBSEQUENT ADULT Lab Routine [facility] Other*[id number] Every 6 Months for 2 Occurrences starting 01/06/2023 until 01/26/2024 Scheduled Procedures Name Priority Associated Diagnoses Date/Ti me COLONOSCOPY FLEXIBLE PROXIMA L DIAGNOSTIC Recall Encounter for screening colonoscopy Health Maintenance Due Date Last Done Comments Hepatitis C Screening 11/30/1983 HPV/Co-Test 11/30/1995 Cologuard 2010 Fecal Occult Blood Test 2010 Sigmoidoscopy 2010 Cervical Cancer Screening 02/04/2020 Pap Smear 02/04/2020 02/03/2017, 09/2013, 09/19/2013 Depression Screening, Annual for Pts 12 [...] this encounter Medical Devices Implanted Type Area Emergency Medical Tech Device Identifier Shelf Expiration Date Model / Serial / Lot V-40/C-Taper Adapter Sleeve Implanted:Qty: 1 on 07/25/2019 by Kojo Rashid DO at OR [facility] Left: Hip ILAN : ORTHOPAEDICS 11/30/2023 17-0000E / / [id number] documented as of this encounter Visit Diagnoses Diagnosis [facility] Other*[id number] documented in this encounter Care Teams Ends Down Checker Relationship Specialty Start Date End Date Dave Beaver MD [address] [place] [address] PCP - General Family Medicine 01/02/21 documented as of this encounter
--- OUTSIDE RECORDS SUMMARY | 2023-03-29 21:47 | External Medical Summary | Summary of Care ---
Author Name Unknown Organization [facility] Address [address] [place] [address] Phone [phone] Care Team Providers Care Job Press Feeder Name Role Phone Dave Beaver MD Primary Care Provider [phone] Reason for Referral * Medication Prior Authorization - Pending Review Specialty Diagnoses / Procedures Referred By Contac t Referred To Contact Diagnoses Cough present for greater than 3 weeks Dave Beaver MD [address] [place] [address] Referral ID Status Reason Start Date Expiration Date V isits Requested Visits Authorized [id number] Pending Review [id number] Reason for Visit * Reason Comments Follow Up Pt here for 6 month follow up, pt states she was in with returning of cough and congestion 2 weeks ago Encounter Details Date Type Department Care Team Description 01/26/2023 Office Visit Family Practice [facility] [address] [place] [address] Dave Beaver MD [address] [place] [address] Morbid obesity (HCC)*; HTN, goal below 130/80; Gastroesophageal reflux disease without esophagitis; Fatty liver disease, nonalcoholic; Cough present for greater than 3 weeks Allergies No known active allergiesdocumented as of this encounter (statuses as of 01/26/2023) Medications Medication Sig Dispensed Refills Start Date [...] for Wheezing. 18 g 3 10/28/2022 Active Doxycycline Hyclate 100 MG Oral [...] for Cough. 120 mL 0 01/26/2023 Active Fluticasone-Salme terol 100-50 MCG/ACT Inhalation Aerosol Powder Breath Activated (Advair Diskus)Indication s:Cough present for greater than 3 weeks Inhale 1 Puff by mouth in the morning and 1 Puff before bedtime. 60 Each 1 10/31/2022 3 Discontinued Hospital, Clinic, or Other Facility Administered Medication Ordered Dose Route Frequency Start Date End Date Status Albuterol Sulfate (Proventil) (2.5 MG/3ML) 0.083% inhalation solution 2.5 mgIndications:Cough present for greater than 3 weeks 2.5 mg NEBULIZER ONCE PRN 01/26/2023 01/26/2024 Active documented as of this encounter (statuses as of 01/26/2023) Active Problems Problem Noted Date Gastroesophageal reflux disease without esophagitis 02/25/2021 Morbid obesity 02/24/2021 HTN, goal below 130/80 06/02/2017 Fatty liver disease, nonalcoholic documented as of this encounter (statuses as of 01/26/2023) Resolved Problems Problem Noted Date Resolved Date Prediabetes 02/26/2021 07/25/2022 Osteoarthritis of left hip 05/19/201902/24 Hip pain, left 05/19/2019 02/24/2021 Ambulatory dysfunction 05/19/2019 Body mass index (BMI) of 40.0 to 44.9 in adult 1 02/24/2021 Overview: Per Obesity protocol #1 Rotator cuff (capsule) sprain and strain 014 01/09/2015 Reactive arthritis 02/10/2013 06/06/2019 documented as of this encounter (statuses as of 01/26/2023) Immunizations Name Administration Dates Next Due COVID-19 [...] Sign Reading Time Taken Comments Blood Pressure 140/98 01/26/2023 7:44 AM EDT Pulse 76 01/26/2023 7:44 AM EDT Temperature 36.3 C (97.3 F) 01/26/2023 7:44 AM ED T Respiratory Rate 18 01/26/2023 7:44 AM EDT Oxygen Saturation - - Inhaled Oxygen Concentration - - Weight 122.5 kg (270 lb) 01/26/2023 7:44 AM EDT Height 160 cm (5' 3") 01/26/2023 7:44 AM EDT Body Mass Index 47.83 01/26/2023 7:44 AM EDT documented in this encounter Progress Notes * Dave Beaver MD - 01/26/2023 7:59 AM EDT SUBJECTIVE: Rowena Santillan is a 57 year old female. Chief Complaint Patient presents with Follow Up Pt here for 6 month follow up, pt states she was in with returning of cough and congestion 2 weeks ago HPI: Here with continued cough. She has had a semi-productive cough for most of this year. She has been treated a few times with antibiotics and improves for brief periods of time, but the cough always returns. She does become a bit short of breath. Uses rescue inhaler. I had tried to give her a maintenance inhaler earlier this year but insurance would not pay for it. I think we need to get her set upfor PFTs. Patient Active Problem List Diagnosis Code Fatty [...] as needed for Wheezing. 18 g 3 Doxycycline Hyclate 100 MG Oral Capsule Take 1 Capsule by mouth in the morning and 1 Capsule beforebedtime. Do all this for 10 days. Until gone.. 20 Capsule 0 guaiFENesin-Codeine 100-10 MG/5ML Oral Syrup (Robitussin AC) Take 5 mL by mouth every 4 hours as needed for Cough. 120 mL 0 Current Facility-Administered Medications Medication Dose Route Frequency Provider Last Rate Last Admin Albuterol Sulfate (Proventil) (2.5 MG/3ML) 0.083% inhalation solution 2.5 mg 2.5 mg Nebulizer Once PRN Dave Beaver MD Allergy: Review of patient's allergies indicates: No Known Allergies OBJECTIVE: BP 140/98 (BP Site: Left Arm, BP Position: Sitting, BP Cuff Size: Large) | Pulse 76 | Temp 36.3 C(97.3 F) (Tympanic) | Resp 18 | Ht 1.6 m (5' 3") | Wt 122.5 kg (270 lb) | LMP 08/17/2013 | BMI 47.83 kg/m | BSA 2.33 m Gen: obese, nad Lungs: ctab Heart: rrr, no mrg Ext: no c/c/e Skin: no rashes ASSESSMENT AND PLAN: (E66.01) Morbid obesity (HCC) (primary encounter diagnosis) Plan: diet/exercise (I10) HTN, goal below 130/80 Plan: stable at home; sick today (K21.9) Gastroesophageal reflux disease without esophagitis Plan: continue ppi (K76.0) Fatty liver disease, nonalcoholic Plan: diet/xercise (R05.8) Cough present for greater than 3 weeks Plan: XR CHEST 2 VIEWS, Doxycycline Hyclate 100 MG Oral Capsule, SPIROMETRY B/A BRONCHODILATOR, Albuterol Sulfate (Proventil) (2.5 MG/3ML) 0.083% inhalation solution 2.5 mg, guaiFENesin-Codeine 100-10 MG/5ML Oral Syrup (Robitussin AC) Follow up in 6 month(s). No other complaints were offered at this time. Dave Beaver MD documented in this encounter Nursing Notes * Mary Ellen Lawrence LPN - 01/26/2023 7:43 AM EDT The patient has been properly identified by confirmation of name and date of . Chief Complaint Patient presents with Follow Up Pt here for 6 month follow up, pt states she was in with returning of cough and congestion 2 weeks ago documented in this encounter Plan of Treatment Upcoming Encounters Date Type Specialty Care Team Description 01/27/2023 Imaging Radiology 02/23/2023 Office Visit Family Medicine Sakshi Lucas DO [address] [place] [address] 03/05/2023 PulmDiagnostic Pulmonary Function [place], [address] [address] [place] [address] 07/28/2023 Office Visit Family Medicine Dave Beaver MD [address] [place] [address] Scheduled Orders Name Type Priority Associated Diagnoses Order Schedule XR CHEST 2 VIEWS Medical Imaging Routine Cough present for greater than 3 weeks Ordered: 01/26/2023 SPIROMETRY B/A BRONCHODILATOR Procedures Routine Cough present for greater than 3 weeks Expected: 01/27/2023, Expires: 02/26/2024 Scheduled Procedures Name Priority Associated Diagnoses Date/Ti [...] this encounter Medical Devices Implanted Type Area Marine Structural Welder Device Identifier Shelf Expiration Date Model / Serial / Lot V-40/C-Taper Adapter Sleeve Implanted:Qty: 1 on 07/25/2019 by Kojo Rashid DO at OR [facility] Left: Hip ILAN : ORTHOPAEDICS 11/30/2023 17-0000E / / [id number] documented as of this encounter Visit Diagnoses Diagnosis Morbid obesity (HCC)- Primary Morbid obesity HTN, goal below 130/80 Unspecified essential hypertension Gastroesophageal reflux disease without esophagitis Esophageal reflux Fatty liver disease, nonalcoholic Other chronic nonalcoholic liver disease Cough present for greater than 3 weeks documented in this encounter Care Teams Job Press Feeder Relationship Specialty Start Date End Date Dave Beaver MD [address] [place] [address] PCP - General Family Medicine 01/02/21 documented as of this encounter
--- OUTSIDE RECORDS SUMMARY | 2023-03-29 21:47 | External Medical Summary ---
Author Name Unknown Address Unknown Organization [id number][facility] [place] [address] Laboratory Report Ordering Provider Test Date Status ADOLFO FIGUEROA 11/07/2022 07:00:53 Final Observation Date Value Abnormality Reference (Units ) Status WBC, Total 11/07/2022 07:00:53 8.14 4.00-10.8 0 (K/uL) Final RBC 11/07/2022 07:00:53 4.57 3.85-5.15 (M/uL) Final Hemoglobin 11/07/2022 07:00:53 13.2 12.0-15.3 (g/dL) Final HCT 11/07/2022 07:00:53 42.5 36.0-45.2 (%) Final MCV 11/07/2022 07:00:53 93.0 81.5-97.5 (fL) Final MCH 11/07/2022 07:00:53 28.9 27.0-34.0 (pg) Final MCHC 11/07/2022 07:00:53 31.1 32.0-36.0 (g/dL) Final RDW 11/07/2022 07:00:53 13.4 11.5-15.5 (%) Final Platelets 11/07/2022 07:00:53 272 140-400 (K /uL) Final MPV 11/07/2022 07:00:53 11.2 6.6-11.1 ( fL) Final Performing Location [facility] [address] [place] [address]
--- OUTSIDE RECORDS SUMMARY | 2023-03-29 21:47 | External Medical Summary | Summary of Care ---
Author Name Unknown Organization [facility] Address [address] [place] [address] Phone [phone] Care Team Providers Care Chief Of Service Name Role Phone Jeniffer Zacarias MD Primary Care Provider [phone] Reason for Visit * Reason Onset Date Comments Medication Refill 10/27/2022 Encounter Details Date Type Department Care Team Description 10/27/2022 Refill Family Practice [facility] [address] [facility] [place] [id number] Jeniffer [facility]arias [facility] [address] [facility] [id number] Subacute cough Allergies No known active allergiesdocumented [...] the morning. 90 Tablet 3 08/09/2021 Active Spacer/Aero-Holdi ng Chambers DeviceIndications :Subacute cough [...] for Wheezing. 18 g 3 10/28/2022 Active Ventolin HFA 108 (90 Base) MCG/ACT Inhalation Aerosol SolutionIndicatio ns:Subacute cough Inhale 2 Puffs by mouth every 4 hours as needed for Wheezing. 18 g 1 06/23/2022 3 Discontinue d(Refill) documented as of this [...] encounter Miscellaneous Notes * Telephone Encounter - Britney Lang [facility] - 10/28/2022 10:44 AM EDTSigned Prescriptions: Disp Refills Ventolin HFA 108 (90 Base) MCG/ACT Inhalat*18 g 3 Sig: Inhale 2Puffs by mouth every 4 hours as needed for Wheezing.Authorizing Provider: JENIFFER ZACARIAS User: BRITNEY LANG documented in this encounter Plan of Treatment Upcoming Encounters Date Type Specialty Care Team Description 11/20/2022 Office Visit Family Medicine Sakshi Lucas DO [address] [place] [address] 11/20/2022 Office Visit Orthopedics Kojo Rashid DO [address] [place] [address] 01/26/2023 Office Visit Family Medicine Jeniffer Zacarias MD [address] [place] [address] Scheduled Procedures Name Priority Associated Diagnoses Date/Ti [...] this encounter Medical Devices Implanted Type Area Gas Line Installer Device Identifier Shelf Expiration Date Model / Serial / Lot V-40/C-Taper Adapter Sleeve Implanted:Qty: 1 on 07/25/2019 by Kojo Rashid DO at OR [facility] Left: Hip ILAN : ORTHOPAEDICS 11/30/2023 17-0000E / / [id number] documented as of this encounter Visit Diagnoses Diagnosis Subacute cough Cough documented in this encounter Care Teams Chief Of Service Relationship Specialty Start Date End Date Jeniffer Zacarias MD [address] [place] [address] PCP - General Family Medicine 01/02/21 documented as of this encounter
--- OUTSIDE RECORDS SUMMARY | 2023-03-29 21:47 | External Medical Summary | Summary of Care ---
Author Name Unknown Organization [facility] Address [address] [place] [address] Phone [phone] Care Team Providers Care Industrial Sales Representative Name Role Phone Dave Beaver MD Primary Care Provider [phone] Reason for Visit * Reason Comments Pulmonary Function Test Spirogram with b rashardchodilator Encounter Details Date Type Department Care Team Description 03/05/2023 PulmDiagnostic Pulmonary Function Lab, [facility] [address] [facility] [place] [address] [place], [address] [place] [address] Cough present for greater than 3 weeks* [...] have a smoking history. 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 Spirometry performed before and after a slow [...] Medicine Sakshi Lucas DO [address] [place] [address] 05/07/2023 Office Visit Otolaryngology Lois Parry PA-C [address] [place] [address] 07/28/2023 Office Visit Family Medicine Dave Beaver MD [address] [place] [address] Scheduled Procedures Name Priority Associated Diagnoses Date/Ti me COLONOSCOPY FLEXIBLE PROXIMA L DIAGNOSTIC Recall Encounter for screening colonoscopy Health Maintenance Due Date Last Done Comments Hepatitis C Screening 11/30/1983 HPV/Co-Test 11/30/1995 Cologuard 2010 Fecal Occult Blood Test 2010 Sigmoidoscopy 2010 Cervical Cancer Screening 02/04/2020 Pap Smear 02/04/2020 02/03/2017, 0509/2013, 09/19/2013 Depression Screening 06/06/2020 06/06/2019 COVID-19 Vaccine [...] encounter Medical Devices Implanted Type Area Head Refrigeration Engineer Device Identifier Shelf Expiration Date Model / Serial / Lot V-40/C-Taper Adapter Sleeve Implanted:Qty: 1 on 07/25/2019 by Kojo Rashid DO at OR [facility] Left: Hip ILAN : ORTHOPAEDICS 11/30/2023 [...] mg documented in this encounter Care Teams Industrial Sales Representative Relationship Specialty Start Date End Date Dave Beaver MD [address] [place] [address] PCP - General Family Medicine 01/02/21 documented as of this encounter
--- OUTSIDE RECORDS SUMMARY | 2023-03-29 21:47 | External Medical Summary | Summary of Care ---
Author Name Unknown Organization [facility] Address [address] [place] [address] Phone [phone] Care Team Providers Care Speech And Language Assistant Name Role Phone Dave Beaver MD Primary Care Provider [phone] Reason for Visit * Reason Comments Acute Pt here for complain ts of swollen lymph nodes on right clavicle for a few months. Pt denies any pain or trama to the area. Encounter Details Date Type Department Care Team Description 11/06/2022 Office Visit Family Practice [facility] [address] [place] [facility] [place] [address] Gomez Cuello DO [address] [facility] [id number] Supraclavicular fossa fullness*; HTN, goal below 130/80; Morbid obesity due to excess calories (HCC) Allergies No known active allergiesdocumented as of this encounter (statuses as of 11/22/2022) Medications Medication Sig Dispensed Refills Start Date [...] for Wheezing. 18 g 3 10/28/2022 Active Fluticasone-Salme terol 100-50 MCG/ACT Inhalation Aerosol Powder Breath Activated (Advair Diskus)Indication s:Cough present for greater than 3 weeks Inhale 1 Puff by mouth in the morning and 1 Puff before bedtime. 60 Each 1 10/31/2022 Active guaiFENesin-Codei ne 100-10 MG/5ML Oral Syrup (Robitussin AC)Indications:Wa lking pneumonia Take 5 mL by mouth every 4 hours as needed for Cough. 120 mL 0 07/25/2022 3 Discontinue d(Medicatio n List Clean Up) predniSONE 10 MG Oral Tablet (Deltasone)Indica tions:Cough present for greater than 3 weeks Take 5 tabs for 2 days, 4 tabs for 2 days, 3 tabs for 2 days, 2 tabs for 2 days 1 tab for 2 days 30 Tablet 0 08/02/2022 3 Discontinue d(Medicatio n List Clean Up) Fluticasone Propionate HFA 110 MCG/ACT Inhalation Aerosol (Flovent HFA)Indications:C ough present for greater than 3 weeks Inhale 2 Puffs by mouth in the morning and 2 Puffs before bedtime. 12 g 5 10/27/2022 3 Discontinue d(Medicatio n List Clean Up) documented as of this encounter (statuses as of 11/22/2022) Active Problems Problem Noted Date Gastroesophageal reflux disease without esophagitis 02/25/2021 Morbid obesity 02/24/2021 HTN, goal below 130/80 06/02/2017 Fatty liver disease, nonalcoholic documented as of this encounter (statuses as of 11/22/2022) Resolved Problems Problem Noted Date Resolved Date Prediabetes 02/26/2021 07/25/2022 Osteoarthritis of left hip 05/19/201902/24 Hip pain, left 05/19/2019 02/24/2021 Ambulatory dysfunction 05/19/2019 Body mass index (BMI) of 40.0 to 44.9 in adult 1 02/24/2021 Overview: Per Obesity protocol #1 Rotator cuff (capsule) sprain and strain 014 01/09/2015 Reactive arthritis 02/10/2013 06/06/2019 documented as of this encounter (statuses as of 11/22/2022) Immunizations Name Administration Dates Next Due COVID-19 [...] Sign Reading Time Taken Comments Blood Pressure 144/80 11/06/2022 6:32 PM EDT Pulse 75 11/06/2022 6:12 PM EDT Temperature 36.7 C (98 F) 11/06/2022 6:12 PM EDT Respiratory Rate 16 11/06/2022 6:12 PM EDT Oxygen Saturation 96% 11/06/2022 6:12 PM EDT Inhaled Oxygen Concentration - - Weight 123.4 kg (272 lb) 11/06/2022 6:12 PM EDT Height 160 cm (5' 2.99") 11/06/2022 6:12 PM EDT Body Mass Index 48.2 11/06/2022 6:12 PM EDT documented in this encounter Patient Instructions * Patient Instructions* Gomez Cuello DO - 11/06/2022 6:33 PM EDT BMI (Body Mass Index) is the number obtained by dividing a person's weight in kilograms by his or her height in meters squared. BMI is used in determining obesity. BMI is not used to determine a person's actual percentage of body fat, but it is a good tool to rn palliative weight in terms of what is healthy and unhealthy. It is used to identify adults at increased risk for developing weight related medical problems. Estimated body mass index is 48.2 kg/m as calculated from the following: Height as of this encounter: 1.6 m (5' 2.99"). Weight as of this encounter: 123.4 kg (272 lb). Severe Obesity - BMI 40 kg/m2 and above - Severely obese individuals are at a very high risk for developing: * Heart disease * Stroke * Diabetes * High Blood Pressure * High Cholesterol * GERD (acid reflux) * Sleep Apnea * Osteoarthritis * Fatty Liver Disease * Certain Types of Cancers * Gout * Gall Bladder Disease - Weight loss has been shown to decrease weight related medical problems. - A BMI of 40 kg/m2 or higher decreases lifespan by 10 yrs, compared to those with a normal BMI. - A 12-week weight management text message program is also available. Go to [employer] and seethe message under '[employer]' for more information and enrollment. Patient is Instructed to: Diet: * Limit total fat intake to no more than 40 grams per day (low fat diet). * Increase fruits and vegetables to 5 servings per day, combined. * Limited starches (breads, pasta, rice, potatoes, corn, cereals) to 4 servings per day. Avoid Calorie Containing Drinks: * No fruit juices, regular sodas or sweetened drinks. * Water is preferred - 64 ounces per day unless advised of a fluid restriction. * Diet sodas and drinks permitted. Keep Honest, Accurate Food logs: * www.[employer] * www.[employer] * If you bite it - write it! Weigh Yourself Weekly: * Morning is best. * Try to do this outside your home. * Have a friend/spouse remind you to weigh yourself, accountability to others helps. Perform 30 minutes of physical activity daily: * Can do all at once or 5 minutes 6 times per day * 8, 000-10,000 steps per day using a pedometer * Make it fun! documented in this encounter Progress Notes * Gomez Cuello DO - 11/06/2022 6:33 PM EDT Images from the original note were not included. History of Present Illness Rowena Santillan is a 56 year old female that presents for Acute (Pt here for complaints of swollen lymph nodes on right clavicle for a few months. Pt denies any pain or trama to the area. ) Patient is a 56-year-old female with a history of hypertension. Patient complains of supraclavicular fullness times several months.Patient denies fatigue fever chills or sweats. Patient denies nasal congestion sore throat or earache. Patient denies cough or sputum. Patient denies chest pain shortness breath palpitations or edema. Patient denies abdominal pain nausea vomiting diarrhea constipation. Patient denies urinary frequency dysuria urgency or hematuria. Patient denies neck or back pain, joint pain or swelling. Patient denies headache dizziness weakness or numbness. Patient denies skin rash or lesions. Review systems otherwise negative Physical Exam Vitals: 11/06/22 1812 11/06/22 1832 Temp: 36.7 C (98 F) Pulse: 75 Resp: 16 SpO2: 96% BP: 142/90 144/80 BMI: 48.19 BP Readings from Last 3 Encounters: 11/06/22 144/80 08/02/22 142/88 07/25/22 124/80 Wt Readings from Last 3 Encounters: 11/06/22 123.4 kg (272 lb) 08/02/22 120.2 kg (265 lb) 07/25/22 120.2 kg (265 lb) BMI Readings from Last 3 Encounters: 11/06/22 48.20 kg/m 08/02/22 46.95 kg/m 07/25/22 46.95 kg/m General: alert, healthy and no distress Head: Normocephalic, No masses, lesions, tenderness or abnormalities Eye Exam: PERRLA, extraocular movements intact, conjunctiva are pink and non- injected, sclera clear Ears: External ears normal, Canals clear, TM's Normal Nose: no mucosal erythema, no mucosal edema, no purulent discharge Oropharynx: no exudate, no erythema, lips, buccal mucosa, and tongue normal and mucous membranes are moist Neck: supple, no adenopathy, no bruits, thyroid normal size, non-tender, without nodularity Lymph: Supraclavicular fullness with no discrete palpable lymphadenopathy Heart: regular rate & rhythm, no murmur and no gallops Lungs: chest symmetric with normal AP diameter, no chest deformities noted, no chest wall tenderness, lungs clear to auscultation Pulses: carotid=2/4 w/o bruits Abdomen: abdomen soft, non-tender, normal bowel sounds and no masses or organomegaly Back: back symmetric, no curvature, no costovertebral angle tenderness, range of motion is normal Extremities: less than 2 second capillary refill, no joint deformities, effusion, or inflammation Neuro Exam: alert & oriented x 3 with fluent speech, no focal motor/sensory deficits, gait normal, reflexes normal and symmetric Skin: skin color, texture, turgor are normal, no rashes or significant lesions I have reviewed the following results: Assessment and Plan Supraclavicular fossa fullness - XR CHEST 2 VIEWS - CBC WITH WBC DIFFERENTIAL; Future HTN, goal below 130/80 Continue present medication Atenolol 50 mg 1 tab once daily Cardiac diet and exercise Morbid obesity due to excess calories (HCC) Reduced caloric intake diet and exercise Wrap-Up Time: I spent a total of 20-29 minutes (exact time 20 mins) on the date of service in preparation, delivery, and documentation of the care provided to Rowena Santillan excluding any time spent in the performance of separately billed services. Patient counseling on weight management given. documented in this encounter Plan of Treatment Upcoming Encounters Date Type Specialty Care Team Description 12/11/2022 Office Visit Orthopedics Kojo Rashid DO [address] [place] [address] 01/01/2023 Office Visit Family Medicine Sakshi Lucas DO [address] [place] [id number] 01/26/2023 Office Visit Family Medicine Dave Beaver MD [address] [place] [address] Scheduled Procedures Name Priority Associated Diagnoses Date/Ti me COLONOSCOPY FLEXIBLE PROXIMA L DIAGNOSTIC Recall Encounter for screening colonoscopy [facility] Maintenance Due Date Last Done Comments Hepatitis C Screening 11/30/1983 Cologuard 2010 Fecal Occult Blood Test 2010 Sigmoidoscopy 2010 Depression Screening, Annual for Pts 12 and Over 06/06/2020 06/06/2019 Pap Smear 02/03/2022 02/03/2017, 05/09/2013, 09/19/2013 Influenza Vaccine (FLU shot) (#1) 2023 01/24/2022, [...] this encounter Medical Devices Implanted Type Area Campaign Marketing Specialist Device Identifier Shelf Expiration Date Model / Serial / Lot V-40/C-Taper Adapter Sleeve Implanted:Qty: 1 on 07/25/2019 by Kojo Rashid DO at [facility] Left: Hip ILAN : ORTHOPAEDICS 11/30/2023 [id number] / / [id number] documented as of this encounter Procedures Procedure Name Priority Date/Time Associated Diagnosis Comments XR CHEST 2 VIEWS Routine 11/06/2022 6:47 PM EDT Supraclavicular fossa fullness documented in this encounter Results * XR CHEST 2 VIEWS (11/06/2022 6:47 PM EDT) Anatomical Region Laterality Modality Chest Computed Radiogr aphy 11/07/2022 8:35 PM EDT Impressions 11/07/2022 8:33 PM EDT IMPRESSION No acute cardiopulmonary process Narrative 11/07/2022 8:33 PM EDT EXAM XR CHEST 2 VIEWS - 11/06/2022 6:47 pm HISTORY Supraclavicular fullness TECHNIQUE Frontal and lateral views of the chest COMPARISON 08/02/2022 FINDINGS The lungs are clear. Cardiomediastinal silhouette is within normal limits. Mild elevation of right hemidiaphragm. There is no pleural effusion. No acute osseous abnormality. Procedure Note Medina Obrien MD - 11/07/2022 EXAM XR CHEST 2 VIEWS - 11/06/2022 6:47 pm HISTORY Supraclavicular fullness TECHNIQUE Frontal and lateral views of the chest COMPARISON 08/02/2022 FINDINGS The lungs are clear. Cardiomediastinal silhouette is within normal limits.Mild elevation of right hemidiaphragm. There is no pleural effusion. Noacute osseous abnormality. IMPRESSION IMPRESSION No acute cardiopulmonary process [facility] DO RADIOLOGY (RAD GENER AL) documented in this encounter Visit Diagnoses Diagnosis Supraclavicular fossa fullness- Primary Swelling, mass, or lump in chest HTN, goal below 130/80 Unspecified essential hypertension Morbid obesity due to excess calories (HCC) documented in this encounter Care Teams Speech And Language Assistant Relationship Specialty Start Date End Date Dave Beaver MD [address] [place] [address] PCP - General Family Medicine 01/02/21 documented as of this encounter
== END 2023-03-27 14:55 | disposition home or self-care (01) | DRG 202 ==
LOC: ED 14:12 → 2S 18:01 → SUATTDRO 18:01 → INTOOBSV 18:01 → 2S 19:55